=== PATIENT | female | born 1985 | race Caucasian/White ===

== ENCOUNTER 2025-04-02 05:29 | Emergency (ER) | payer MEDICAID, SELFPAY ==
--- OUTSIDE RECORDS SUMMARY | 2025-04-02 05:41 | XMS_ITS | Patient Health Record ---
Author Organization [facility] Address [address] [place] [address] Care Team Providers Care Test Hole Driller Name Role Phone JIM BRISENO Primary Care Provider Allergies Allergen (clinical drug ingredient) Drug/Non Drug Allergy documented on EMR Reaction Allergy Type Onset Date Status aripiprazole Abilify nausea and vomiting Drug Allergy Active lurasidone Latuda nausea and vomiting Drug Allergy Active Reason For Referral No Information Medications Medication SIG (Take, Route, Fr equency, Duration) Notes Start Date End Date Status Xanax 1 MG 1 tablet as needed O rally TID; Duration: 30 days 12/30/2018 Active Protonix 40 MG 1 tablet Orally Once a day; Duration: 30 day(s) 07/21/2018 Active Vraylar 1.5 MG 1 capsule Orally Onc e a day; Duration: 30 days 02/08/2019 Active CeleXA 20 MG 1 tablet Orally Once a day; Duration: 30 days 12/30/2018 Active Prazosin HCl 2 MG 1 capsule at bedtime Orally Once a day; Duration: 30 day(s) 08/08/2019 Active SEROquel 200 MG 1 tablet Orally Once a dayHS; Duration: 30 days 10/16/2017 Active risperiDONE 1 MG 1 tablet in the am, 2 tabs at bedtime Orally as directed; Duration: 30 days 07/21/2018 Active Prazosin HCl 2 MG 1 capsule at bedtime Orally Once a day- for nightmares; Duration: 30 days 10/16/2017 Active Adderall 20 MG 2 tabs po qam, 1 tab po qnoon, 1 tab po q 1500 Orally as directed 10/16/2017 Active Prazosin HCl 1 MG 1 capsule at bedtime Orally Once a day; Duration: 30 day(s) 08/08/2019 Active Social History Tobacco Use: Social History Observation Description Date Details (start date - stop date) Never Smoker NA - NA Tobacco Use/Smoking Question Answer Notes Are you a never smoker Additional Findings: Tobacco User Chews fine cut tobacco Alcohol Screen (Audit-C) Question Answer Notes Did you have a drink containing alcohol in the p ast year? No Points 0 Interpretation Negative Tobacco use other than smoking: Question Answer Notes Are you an other tobacco user? No Problems Problem Type SNOMED Code ICD Code Onset Dates Problem Status W/U Status Risk Notes Problem Posttraumatic stress disorder (01092914) Post-traumatic stress disorder, chronic (F43.12) Active confirmed Problem Bipolar disorder, unspecified (F31.9) Active confirmed Plan Of Treatment No Information Insurance Providers Payer Name Payer Address Payer Phone Subscriber Number Group Number Insured Name Patient Relationship to Insured Coverage Start Date Coverage End Date [place] [address] [id number] JOHN CARRASCO Self - patient is the insured Medical (General) History Medical History History ICD Code BIPOLAR SCHIZPHRENIA PTSD ANXIETY Surgical History Surgery Date(Month/Year) X2 C-SECTIONS Hospitalization History Reason Date(Month/Year) MENTAL
--- OUTSIDE RECORDS SUMMARY | 2025-04-02 05:41 | XMS_ITS | Encounter Summary ---
Author Organization [facility] Address [address] [place] [address] Care Team Providers Care Subassemblies Wirer Name Role Phone Kirsty Ricci PA-C Primary Care Provider [phone] Reason for Visit * Reason Onset Date Comments Med Refill 11/19/2023 Encounter Details Date Type Department Care Team (Late st Contact Info) Description 11/19/2023 Refill [facility] [place] - Primary Care [address] [place] [id number] Kirsty Ricci PA-C [address] [place] [address]. [place] [address] Anemia, unspecified type Social History Tobacco Use Types Packs/Day Years Used Date Smoking Tobacco: Never Smokeless Tobacco: Current Chew Alcohol Use Standard Drinks/Week Comments No 0 (1 standard drink = 0.6 oz pur e alcohol) AUDIT-C Answer Date Recorded Frequency of Alcohol Consumption Never 11/12/2019 Average Number of Drinks Not on file 020 Frequency of Binge Drinking Not on file 10/23 PHQ-2 Answer Date Recorded PHQ-2 Score 0 08/25/2023 Comments Unknown Sex and Gender Information Value Date Recorded Sex Assigned at Not on file Legal Sex Female 7:09 PM CDT Gender Identity Not on file Sexual Orientation Not on file documented as of this encounter Plan of Treatment Not on file documented as of this encounter Goals Goal Patient Goal Type Associated Problems Recent Progress Patient-Stated? Author Learn to Manage Calories Care Plan Diet Management On track( 024 11:21 AM CDT) Danitza Sanchez RN Note: Images from the original note were not included. 5 Steps for Eating Healthier Changing the way you eat can improve your health. It can lower your cholesterol and blood pressure, and help you stay at a healthy weight. Your diet doesn t have to be bland and boring to be healthy. Just watch your calories and follow these steps: Step 1. Eat fewer unhealthy fats Choose more fish and lean meats instead of fatty cuts of meat. Skip butter and lard, and use less margarine. Replace these with healthier fats, such as olive, canola, or avocado oils. Pass on foods that have palm, coconut, or partially hydrogenated oils. Eat fewer high-fat dairy foods like cheese, ice cream, and whole milk. Get a heart-healthy cookbook and try some new recipes. Step 2. Go light on salt Keep the saltshaker off the table. Limit high-salt ingredients, such as soy sauce, bouillon, and garlic salt. Instead of adding salt when cooking, season your food with herbs, spices, and other flavorings. Try lemon, garlic, onion, vinegar, or salt-free herb seasonings. Limit convenience foods, such as boxed or canned foods and restaurant food. Read food labels and choose lower-sodium options. Buy fresh, frozen, or canned vegetables that don't have added salt. Step 3. Limit sugar Pause before you add sugars to pancakes, cereal, coffee, or tea. This includes white and brown table sugar, syrup, honey, and molasses. Cut your usual amount by half. Swap out sugar-filled soda and other drinks. Buy sugar-free or low-calorie beverages. Remember, water is always the best choice. Try adding lemon juice to water for extra flavor. Read labels and choose foods with less added sugar. Keep in mind that dairy foods and foods with fruit will have some natural sugar. Cut the sugar in recipes by 1/3 to 1/2. Boost the flavor with extracts like almond, vanilla, or orange. Or add spices such as cinnamon or nutmeg. Step 4. Eat more fiber Eat fresh fruits and vegetables every day. Boost your diet with whole grains. Go for oats, whole-grain rice, and bran. Add beans and lentils to your meals. Drink more water to match your fiber increase to help prevent constipation. Step 5. Pay attention to serving sizes Remember that a serving size is a standard measurement. It will let you track the amount of fat, calories, and other nutrients in the food you eat. Read the Nutrition Facts label on packaged foods to learn their serving sizes. Use serving sizes to assess how much food you put on your plate. Pay attention to your portions. How many servings are you eating? Keep in mind that your needs may change if you r e more active or less active, or if you have other factors that change your calorie needs. Use your hand to help you measure serving sizes. For example: 1 teaspoon: This is about the size of the first joint of your thumb. 1 tablespoon: This is about the size of the first 2 joints of your thumb. 1 ounce: This is about what you can fit in your cupped hand. 2 to 3 ounces: This is about the size of the palm of your hand. cup: This is also about what you can fit in your cupped hand. 1 cup: This is about the size of your fist. [employer] last reviewed this educational content on 07/24/202219997010-3080 The [employer]. All rights reserved. This information is not intended as a substitute for professional medical care. Always follow your healthcare professional's instructions. Exercise at Least 20 Minutes per Day Care Plan Patient is Inactive On track( 024 11:33 AM CDT) Danitza Sanchez RN Note: Images from the original note were not included. Patient reports that she has low back and hip pain. Work to find ways to exercise that minimize pain such as seated exercises, swimming, etc. Video [employer] Keeping Your Back Healthy Back pain is one of the most common health problems today. In fact, most people experience back pain at some point in their lives. Normal aging and some physically demanding occupations often cause discs to wear out. Bad posture and poor movement patterns can speed up the process. To watch the video: Scan the QR code Using your mobile device, scan the following code: OR Go to the website: www.[employer] Enter the prescription code: TONNYX The comment.com. All rights reserved. This information is not intended as a substitute for professional medical care. Always follow your healthcare professional's instructions. Consistently take Medications as Prescribed Care Plan Medication Adherence On track( 024 11:19 AM CDT) Danitza Sanchez RN documented as of this encounter Visit Diagnoses Diagnosis Anemia, unspecified type documented in this encounter Additional Health Concerns Health Status Noted Date Alive and well 05/05/2023 Active Problems Noted Date Diagnosed Date Diet Management 11/18/2023 Patient is Inactive 11/18/2023 Medication Adherence 11/18/2023 Infection Onset Date Last Indicated Resolved Time COVID-19 (rule out) 02/07/2025 02/07/2025 02/08/20 25 10:09 PM CDT COVID-19 (rule out) 02/17/2025 02/17/2025 02/18/20 25 1:32 PM CDT Assessment Noted Time A fall risk assessment has been complete d for the patient 11/18/2023 12:39 PM CDT documented as of this encounter Care Teams Subassemblies Wirer Relationship Specialty Start Date End Date Kirsty Ricci PA-C [address] [place] [id number] PCP - General Physician Technical Associate 05/05/23 documented as of this encounter
--- OUTSIDE RECORDS SUMMARY | 2025-04-02 05:41 | XMS_ITS | Encounter Summary ---
Author Organization [facility] Address [address] [place] [address] Care Team Providers Care Master Glazier Name Role Phone Kirsty Ricci PA-C Primary Care Provider [phone] Reason for Visit * Reason Comments Med Refill Encounter Details Date Type Department Care Team (Late st Contact Info) Description 03/16/2024 Refill [facility] - Primary Care [address] [place] [address] Kirsty Ricci PA-C [address] [facility] [place] [address] UTI symptoms Social History Tobacco Use Types Packs/Day Years Used Date Smoking Tobacco: Never Smokeless Tobacco: Former Chew Alcohol Use Standard Drinks/Week Comments No 0 (1 standard drink = 0.6 oz pur e alcohol) [facility] Utilities Answer Date Recorded In the past 12 months has Medabil, oil, or water Slack threatened to shut off services in your home? No 01/07/2024 Humiliation, Afraid, Rape, and Kick questionnair e Answer Date Recorded Within the last year, have y ou been afraid of your partner or ex-partner? No 01/07/2024 Within the last year, have y ou been humiliated or emotionally abused in other ways by your partner or ex-partner? No Within the last year, have y ou been kicked, hit, slapped, or otherwise physically hurt by your partner or ex-partner? No 01/07/2024 Within the last year, have y ou been raped or forced to have any kind of sexual activity by your partner or ex-partner? No 01/07/2024 Social Connection and Isolation Panel [NHANES] A nswer Date Recorded In a typical week, how many times do you talk on the phone with family, friends, or neighbors? Twice a week 01/07/2024 How often do you get together with friends or re latives? Once a week 01/07/2024 How often do you attend christian or adventist serv ices? Never 01/07/2024 Do you belong to any clubs o r organizations such as christian groups, unions, fraternal or athletic groups, or school groups? No 01/07/2024 How often do you attend meet ings of the clubs or organizations you belong to? Never 01/07/2024 Are you , , di vorced, , never , or living with a partner? 01/07/2024 AUDIT-C Answer Date Recorded Q1: How often do you have a drink containing alcohol? Never 01/07/2024 Q2: How many drinks containi ng alcohol do you have on a typical day when you are drinking? Patient does not drink Q3: How often do you have si x or more drinks on one occasion? Never 01/07/2024 Overall Financial Resource Strain (CARDIA) Answe r Date Recorded How hard is it for you to pa y for the very basics like food, housing, medical care, and heating? Not hard at all 01/07/2024 PHQ-2 Answer Date Recorded PHQ-2 Score 0 08/25/2023 [facility] - Occupational Stress Questionnaire Answer Date Recorded Do you feel stress - tense, restless, nervous, or anxious, or unable to sleep at night because your mind is troubled all the time - these days? To some extent 01/07/2024 Exercise Vital Sign Answer Date Recorde d On average, how many days pe r week do you engage in moderate to strenuous exercise (like a brisk walk)? 7 days 01/07/2024 On average, how many minutes do you engage in exercise at this level? 20 min 01/07/2024 Hunger Vital Sign Answer Date Recorded Within the past 12 months, y ou worried that your food would run out before you got the money to buy more. Never true 01/07/20 24 Within the past 12 months, t he food you bought just didn't last and you didn't have money to get more. Never true 01/07/2024 PRAPARE - Transportation Answer Date Re corded In the past 12 months, has l ack of transportation kept you from medical appointments or from getting medications? No 12/22 In the past 12 months, has l ack of transportation kept you from meetings, work, or from getting things needed for daily living? No 01/07/2024 Housing Stability Vital Sign Answer Alfredo e Recorded In the last 12 months, was t here a time when you were not able to pay the mortgage or rent on time? No 01/07/2024 In the last 12 months, how many places have you lived? 1 01/07/2024 In the last 12 months, was t here a time when you did not have a steady place to sleep or slept in a custodial (including now)? No 01/07/2024 Comments Unknown Sex and Gender Information Value Date Recorded Sex Assigned at Not on file Legal Sex Female 7:09 PM CDT Gender Identity Not on file Sexual Orientation Not on file documented as of this encounter Miscellaneous Notes * Telephone Encounter - Amparo Salazar - 03/22/2024 10:52 AM CDT Patient does not need. Not having any uti symptoms. * Telephone Encounter - Amparo Salazar - 03/16/2024 3:57 PM CDT Called 1x. Mailbox full. documented in this encounter Plan of Treatment Not on file documented as of this encounter Goals Goal Patient Goal Type Associated Problems Recent Progress Patient-Stated? Author Learn to Manage Calories Care Plan Diet Management On track( 024 11:21 AM CDT) No Danitza Larkin, RN Note: Images from the original note [...] is about the size of your fist. LookIt last reviewed this educational content on 07/24/202219997456-2481 The [employer]. All rights reserved. This information is not [...] following code: OR Go to the website: www.Albumatic Enter the prescription code: RKX [employer]. All rights reserved. This information is not intended as a substitute for professional medical care. Always follow your healthcare professional's instructions. Consistently take Medications as Prescribed Care Plan Medication Adherence On track( 024 11:19 AM CDT) No Danitza Larkin RN documented as of this encounter Visit Diagnoses Diagnosis UTI symptoms documented in this encounter Additional Health Concerns Health Status Noted Date Alive and well 01/07/2024 Active Problems Noted Date Diagnosed Date Diet Management 11/18/2023 Patient is Inactive 11/18/2023 Medication Adherence 11/18/2023 Infection Onset Date Last Indicated Resolved Time COVID-19 (rule out) 02/07/2025 02/07/2025 02/08/20 25 10:09 PM CDT COVID-19 (rule out) 02/17/2025 02/17/2025 02/18/20 25 1:32 PM CDT Assessment Noted Time A fall risk assessment has been complete d for the patient 01/07/2024 10:29 AM CDT documented as of this encounter Care Teams Master Glazier Relationship Specialty Start Date End Date Kirsty Ricci, PARowanC [address] [place] [phone] PCP - General Physician Systems Admin 05/05/23 documented as of this encounter
--- OUTSIDE RECORDS SUMMARY | 2025-04-02 05:41 | XMS_ITS | Encounter Summary ---
Author Organization [facility] Address [address] [place] [address] Care Team Providers Care Seamstress Fitter Name Role Phone Kirsty Ricci PA-C Primary Care Provider [phone] Encounter Details Date Type Department Care Team (Late st Contact Info) Description 05/01/2015 Orders Only [facility] Radiology [address] [place] [address] System, Provider Not In, [address] [place] [address] Social History Tobacco Use Types Packs/Day Years Used Date Smoking Tobacco: Never Assessed Comments Unknown Sex and Gender Information Value Date Recorded Sex Assigned at Not on file Legal Sex Female 7:09 PM CDT Gender Identity Not on file Sexual Orientation Not on file documented as of this encounter Plan of Treatment Not on file documented as of this encounter Procedures Procedure Name Priority Date/Time Associated Diagnosis Comments OUTSIDE IMAGES 05/01/2015 1:02 PM CDT documented in this encounter Results * Outside Images (05/01/2015 1:02 PM CDT) Anatomical Region Laterality Modality N/A Radiographic Ladonna ging 05/01/2015 1:02 PM CDT Narrative 05/01/2015 1:02 PM CDT Historic images from [facility] exist and can be viewed by using the hyperlink to access [facility] pacs: EP LT ANKLE - 3 VIEWS/AKLE PAIN Procedure Note System, Provider Not In - 10/15/2019 Historic images from [facility] exist and can be viewed byusing the hyperlink to access [facility] pacs: EP LT ANKLE - 3 VIEWS/AKLEPAIN us Provider Not In System MD [facility] Final Result documented in this encounter Visit Diagnoses Not on filedocumented in this encounter Additional Health Concerns Infection Onset Date Last Indicated Resolved Time COVID-19 (rule out) 11/26/2020 11/26/2020 11/27/19 21 11:49 AM CDT COVID-19 (rule out) 11/26/2020 11/26/2020 11/27/19 21 1:45 PM CDT COVID-19 (rule out) 01/02/2021 01/02/2021 01/03/20 21 7:16 PM CDT MRSA (Other) 01/02/2021 01/02/2021 07/01/2021 4:00 AM VENDING TECHNICIAN COVID-19 (rule out) 02/05/2022 02/05/2022 02/06/20 22 5:36 PM CDT COVID-19/Influenza (Rule Out) 07/17/2022 07/17/2022 07/17/2022 9:39 AM VENDING TECHNICIAN COVID-19 (confirmed) 07/17/2022 07/17/2022 022 4:00 AM VENDING TECHNICIAN COVID-19 (rule out) 02/07/2025 02/07/2025 02/08/20 25 10:09 PM CDT COVID-19 (rule out) 02/17/2025 02/17/2025 02/18/20 25 1:32 PM CDT documented as of this encounter Care Teams Seamstress Fitter Relationship Specialty Start Date End Date Kirsty Ricci PA-C [address] [place] [id number] PCP - General Physician Ballistic Expert 05/05/23 documented as of this encounter
--- OUTSIDE RECORDS SUMMARY | 2025-04-02 05:41 | XMS_ITS | Encounter Summary ---
Author Organization [facility] Address [address] [place] [address] Care Team Providers Care Cable Tender Name Role Phone Kirsty Ricci PA-C Primary Care Provider [phone] Reason for Visit * Reason Onset Date Comments Med Refill 12/07/2023 Encounter Details Date Type Department Care Team (Late st Contact Info) Description 12/07/2023 Refill [facility] [place] - Primary Care [address] [place] [address] Kirsty Ricci PA-C [address] [place] [address]. [place] [address] Social History Tobacco Use Types Packs/Day Years [...] is about the size of your fist. Zo[employer] last reviewed this educational content on 07/24/202219992639-6675 The [employer]. All rights reserved. This information is not [...] following code: OR Go to the website: www.Dmailer Enter the prescription code: RKX [employer]. All rights reserved. This information is not intended as a substitute for professional medical care. Always follow your healthcare professional's instructions. Consistently take Medications as Prescribed Care Plan Medication Adherence On track( 024 11:19 AM CDT) Danitza Sanchez RN documented as of this encounter Visit Diagnoses Not on filedocumented in this encounter Additional Health Concerns Health [...] documented as of this encounter Care Teams Cable Tender Relationship Specialty Start Date End Date Kirsty Ricci PA-C [address] [place] [phone] PCP - General Physician Titrator 05/05/23 documented as of this encounter
--- OUTSIDE RECORDS SUMMARY | 2025-04-02 05:41 | XMS_ITS | Clinical Summary ---
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 CDT [facility] Blood Venous blood / Unknown 02/17/2025 12:59 PM CDT 02/17/2025 1:09 PM CDT us Jose Soliman LAB BLOOD ORDERABLES Final Resul t Performing Organization Address [facility] Co de Phone Number [address] [address] * hCG, serum, qualitative STAT (02/17/2025 12:59 PM CDT) Only the most recent of2 resultswithin the time period is included. Beta HCG Qualitative Negative NA 02/17/2025 1:32 PM CDT [facility] Comment:Reference Range: Neg ative Blood Venous blood / Unknown 02/17/2025 12:59 PM CDT 02/17/2025 1:09 PM CDT Jose Funez Soliman LAB BLOOD ORDERABLES Final Resul t Performing Organization Address [facility] Co de Phone Number [address] [address] * TSH, 3rd generation STAT (02/17/2025 12:59 PM CDT) Only the most recent of2 resultswithin the time period is included. TSH, 3rd Gen 3.030 0.270 - 4.670 u[IU]/mL 02/17/2025 1:44 PM CDT [facility] Blood Venous blood / Unknown 02/17/2025 12:59 PM CDT 02/17/2025 1:09 PM CDT us Jose Soliman DO LAB BLOOD ORDERABLES Final Resul t Performing Organization Address [facility] Co de Phone Number [address] [address] * Creatine kinase (CK) STAT (02/17/2025 12:59 PM CDT) Only the most recent of2 resultswithin the time period is included. Creatine Kinase 66 0 - 132 U/L 02/17/2025 1:38 PM CDT [facility] Blood Venous blood / Unknown 02/17/2025 12:59 PM CDT 02/17/2025 1:09 PM CDT us Jose Soliman DO LAB BLOOD ORDERABLES Final Resul t Performing Organization Address [facility] Co de Phone Number [address] [address] * Alcohol STAT (02/17/2025 12:59 PM CDT) Only the most recent of2 resultswithin the time period is included. Alcohol <0.010 0.000 - 0.009 g/dL 02/17/2025 1:44 PM CDT [facility] Blood Venous blood / Unknown 02/17/2025 12:59 PM CDT 02/17/2025 1:09 PM CDT us Jose Soliman DO LAB BLOOD ORDERABLES Final Resul t Performing Organization Address [facility] Co de Phone Number [address] [address] * Acetaminophen level STAT (02/17/2025 12:59 PM CDT) Only the most recent of2 resultswithin the time period is included. Acetaminophen <5.0 ug/mL 02/17/2025 1:37 PM CDT [facility] Comment: THERAPEUTIC RANGE: <150 UG/ML 4 HOURS AFTER INGESTION < 50 UG/ML 12 HOURS AFTER INGESTION TOXIC: >150 UG/ML 4 HOURS AFTER INGESTION Blood Venous blood / Unknown 02/17/2025 12:59 PM CDT 02/17/2025 1:09 PM CDT Jose Soliman LAB BLOOD ORDERABLES Final Resul t Performing Organization Address [facility] de Phone Number [address] [address] * (ABNORMAL) Salicylate level STAT (02/17/2025 12:59 PM CDT) Only the most recent of2 resultswithin the time period is included. Salicylate <5.0(L) 150.0 - 300.0 mg/L 02/17/2025 1:44 PM CDT [facility] Blood Venous blood / Unknown 02/17/2025 12:59 PM CDT 02/17/2025 1:09 PM CDT Jose Soliman DO LAB BLOOD ORDERABLES Final Resul t Performing Organization Address [facility] de Phone Number [address] [address] * Comprehensive metabolic panel STAT (02/17/2025 12:59 PM CDT) Only the most recent of2 resultswithin the time period is included. Sodium 140 131 - 145 meq/L 02/17/2025 1:38 PM CDT [facility] Potassium 4.3 3.3 - 5.0 meq/L 02/17/2025 1:38 PM CDT [facility] Chloride 108 96 - 111 meq/L 02/17/2025 1:38 PM CDT [facility] CO2 20 20 - 31 meq/L 02/17/2025 1:38 PM CDT [facility] BUN 11 5 - 23 mg/dL 02/17/2025 1:38 PM CDT [facility] Creatinine 0.68 0.60 - 1.40 mg/dL 02/17/2025 1:38 PM CDT [facility] Glucose 91 72 - 113 mg/dL 02/17/2025 1:38 PM CDT [facility] Calcium 8.7 8.2 - 10.2 mg/dL 02/17/2025 1:38 PM CDT [facility] CALCIUM, CORRECTED 8.9 8.2 - 10.2 mg/dL 02/17/2025 1:38 PM CDT [facility] Comment:Calcium corrected fo r Albumin of less than 4.0. Bilirubin Total 0.3 0.1 - 0.9 mg/dL 02/17/2025 1:38 PM CDT [facility] Alkaline Phosphatase 109 38 - 137 U/L 02/17/2025 1:38 PM CDT [facility] ALT (SGPT) 12 0 - 31 U/L 02/17/2025 1:38 PM CDT [facility] AST (SGOT) 16 6 - 32 U/L 02/17/2025 1:38 PM CDT [facility] Total Protein 6.8 6.1 - 8.2 g/dL 02/17/2025 1:38 PM CDT [facility] Albumin 3.8 3.7 - 5.1 g/dL 02/17/2025 1:38 PM CDT [facility] Anion Gap 12 8 - 16 NA 02/17/2025 1:38 PM CDT [facility] Alb/Glob Ratio Calc 1.3 1.1 - 2.2 g/dL 02/17/2025 1:38 PM CDT [facility] BUN/Creatinine Ratio 16 mg/dL 02/17/2025 1:38 PM CDT [facility] Blood Venous blood / Unknown 02/17/2025 12:59 PM CDT 02/17/2025 1:09 PM CDT us Jose Soliman DO LAB BLOOD ORDERABLES Final Resul t Tenzin [facility] [address] [facility] [facility] [place] [address] * X-ray Bedside Chest 1 View (02/08/2025 2:19 PM CDT) Anatomical Region Laterality Modality Chest N/A Computed Radiogr aphy Narrative 02/08/2025 2:23 PM CDT EXAM: CHEST RADIOGRAPH (1 VIEW) TECHNIQUE: Frontal Chest Radiograph. HISTORY: Chest pain COMPARISON: July 17, 2022 FINDINGS: Lines, Tubes, Devices: None Lungs and Pleura: No focal consolidation. No pleural effusion. No pneumothorax. No pulmonary edema. Cardiomediastinum: Normal cardiomediastinal silhouette. No aortic calcifications. Bones/Soft Tissues: No acute osseous abnormality. No soft tissue abnormality. Upper Abdomen: Within normal limits. IMPRESSION: No acute radiographic abnormality. Procedure Note Kendrick Cooper MD - 02/08/2025 EXAM: CHEST RADIOGRAPH (1 VIEW) TECHNIQUE: Frontal Chest Radiograph. HISTORY: Chest pain COMPARISON: July 17, 2022 FINDINGS: Lines, Tubes, Devices: None Lungs and Pleura: No focal consolidation. No pleural effusion. Nopneumothorax. No pulmonary edema. Cardiomediastinum: Normal cardiomediastinal silhouette. No aorticcalcifications. Bones/Soft Tissues: No acute osseous abnormality. No soft tissueabnormality. Upper Abdomen: Within normal limits. IMPRESSION: No acute radiographic abnormality. Holland Barton MD [facility] DI[facility]NOSTIC IMAGING ORD ERABLES Final Result * ThinPrep Diag w/HVP>=30yr (11/18/2023 10:39 AM CDT) ThinPrep Diag w/HVP>=30yr SEE BELOW NA 11/30/2023 2:55 PM CDT [facility] Comment: ThinPrep w/HPV [id number] NOTE Test Result Flag Unit RefValue ThinPrep w/HPV [id number] Interpretation Cervical/Endocervical (ThinPrep): Satisfactory for Evaluation Negative for Intraepithelial Lesion or Malignancy High Risk HPV testing results are NEGATIVE. See specific genotype results below. HPV with Genotyping, PCR, ThinPrep: HPV High Risk Type 16, PCR: NEGATIVE HPV High Risk Type 18, PCR: NEGATIVE HPV other High Risk types, PCR: NEGATIVE Other High Risk HPV types include: 31, 33, 35, 39, 45, 51, 52, 56, 58, 59, 66, and 68. Report electronically signed by JOCELYN Palomares (ASCP) I verify that I have examined all relevant slides/materials for the specimen(s) and rendered or confirmed the diagnosis. Gross Description Received specimen in a ThinPrep vial. Pap Test Source Cervical/Endocervical Clinical History na Menstrual Status (LMP, PM, 11.06.2023 ) Hormone Therapy/Contraceptives None/Not known Test Performed by: [address] [address] Pipe Organ Mechanic Apprentice: Yuri Domínguez M.D. Ph.D.; CLIA# [id number] Cervix/Vaginal 11/18/2023 10 :39 AM CDT 11/19/2023 11:24 AM CDT Narrative [facility] - 11/30/2023 2:55 PM CDT Pap Smear Source->Cervical/Endocervical Last Menstral Period (LMP) Date->11/06/23 Hormone Therapy/Contraceptives->None Pertinent Clinical History->NA us Kirsty Ricci PA-C LAB PATHOLOGY/CYTOLOGY ORDERA BLES Final Result [facility] [address] [place] [address] from Last 3 Months or Most Recently Relevant to Health Maintenance Additional Health Concerns Active Problems Noted Date Diagnosed Date Diet Management 11/18/2023 Patient is Inactive 11/18/2023 Medication Adherence 11/18/2023 Lack of housing 03/28/2025 Insurance [place] [employer] [place] [employer] on file Advance Directives * Code Blue and Intubation (Latest Code Status on File) Date Activated Date Inactivated Comments 01/05/2020 1:56 PM 01/07/2020 12:44 PM Care Teams Industrial Cook Relationship Specialty Start Date End Date Kirsty Ricci PA-C [address] [place] [id number] PCP - General Physician Composite Layup Worker 05/05/23
--- OUTSIDE RECORDS SUMMARY | 2025-04-02 05:41 | XMS_ITS | Encounter Summary ---
Author Organization [facility] Address [address] [place] [address] Care Team Providers Care Beauty Shop Manager Name Role Phone Kirsty Ricci PA-C Primary Care Provider [phone] Encounter Details Date Type Department Care Team (Late st Contact Info) Description 06/13/2015 Orders Only [facility] Radiology [address] [place] [address] System, Provider Not In, [address] [facility] [place] [address] Social History Tobacco Use Types Packs/Day Years [...] Priority Date/Time Associated Diagnosis Comments OUTSIDE IMAGES 06/13/2015 10:44 AM CDT documented in this encounter Results * Outside Images (06/13/2015 10:44 AM CDT) Anatomical Region Laterality Modality N/A Radiographic Ladonna ging 06/13/2015 10:4 4 AM CDT Narrative 06/13/2015 10:44 AM CDT Historic images from [facility] exist and can be viewed by using the hyperlink to access Thumb Friendly pacs: PELVIC US Procedure Note System, Provider Not In - 10/15/2019 Historic images from [facility] exist and can be viewed byusing the hyperlink to access Thumb Friendly pacs: PELVIC US us Provider Not In System MD DAVIS [...] MRSA (Other) 01/02/2021 01/02/2021 07/01/2021 4:00 AM PAYROLL ACCOUNTING CLERK COVID-19 (rule out) 02/05/2022 02/05/2022 02/06/20 22 5:36 PM CDT COVID-19/Influenza (Rule Out) 07/17/2022 07/17/2022 07/17/2022 9:39 AM PAYROLL ACCOUNTING CLERK COVID-19 (confirmed) 07/17/2022 07/17/2022 022 4:00 AM PAYROLL ACCOUNTING CLERK COVID-19 (rule out) 02/07/2025 02/07/2025 02/08/20 25 10:09 PM CDT COVID-19 (rule out) 02/17/2025 02/17/2025 02/18/20 25 1:32 PM CDT documented as of this encounter Care Teams Beauty Shop Manager Relationship Specialty Start Date End Date Kirsty iRcci PA-C [address] [place] [id number] PCP - General Physician Electric Truck Operator 05/05/23 documented as of this encounter
--- OUTSIDE RECORDS SUMMARY | 2025-04-02 05:41 | XMS_ITS | Encounter Summary ---
Author Organization [facility] Address [address] [place] [address] Care Team Providers Care Glass Smoother Name Role Phone Kirsty Ricci PA-C Primary Care Provider [phone] Reason for Visit * Reason Comments Med Refill Encounter Details Date Type Department Care Team (Late st Contact Info) Description 08/07/2024 Refill [facility] Care [address] [place], [place] [id number] Gina Felton, [facility] [address] [place] [address] Burning with urination Social History Tobacco Use Types Packs/Day Years Used Date Smoking Tobacco: Never Smokeless Tobacco: Former Chew Alcohol Use Standard Drinks/Week Comments No 0 (1 standard drink = 0.6 oz pur e alcohol) [facility] Utilities Answer Date Recorded In the past 12 months has [employer], gas, oil, or water [employer] threatened to shut off services in your [...] week 01/07/2024 How often do you attend mormon or religion serv ices? Never 01/07/2024 Do you belong to any clubs o r organizations such as mormon groups, unions, fraternal or athletic groups, or [...] Answer Date Recorded PHQ-2 Score 0 08/25/2023 [facility] Occupat ional Health - Occupational Stress [...] place to sleep or slept in a nursing home (including now)? No 01/07/2024 Comments Unknown Sex [...] is about the size of your fist. [employer] [facility] reviewed this educational content on 07/24/2022 [employer]. All rights reserved. This information is not intended as a substitute for professional medical care. Always follow your healthcare professional's instructions. Exercise at Least 20 Minutes per Day Care Plan Patient is Inactive On track( 11:33 AM CDT) Danitza Sanchez RN Note: [...] following code: OR Go to the website: www.[employer] Enter the prescription code: RKX [employer]. All rights reserved. This information is not intended as a substitute for professional medical care. Always follow your healthcare professional's instructions. Consistently take Medications as Prescribed Care Plan Medication Adherence On track( 11:19 AM CDT) Danitza Sanchez RN documented as of this encounter Visit Diagnoses Diagnosis Burning with urination Dysuria documented in this encounter Additional Health Concerns Health Status Noted Date Alive and well 06/16/2024 Active Problems Noted Date Diagnosed Date Diet Management 11/18/2023 Patient is Inactive 11/18/2023 Medication Adherence 11/18/2023 Infection Onset Date Last Indicated Resolved Time COVID-19 (rule out) 02/07/2025 02/07/202517/20 25 10:09 PM CDT COVID-19 (rule out) 02/17/2025 02/17/2025 02/18/20 25 1:32 PM CDT Assessment Noted Time A fall risk assessment has been complete d for the patient 06/16/2024 1:14 PM CDT documented as of this encounter Care Teams Glass Smoother Relationship Specialty Start Date End Date Kirsty Ricci PA-C [address] [place] [id number] PCP - General Physician Campaign Associate 05/05/23 documented as of this encounter
--- OUTSIDE RECORDS SUMMARY | 2025-04-02 05:41 | XMS_ITS | Encounter Summary ---
Author Organization [facility] Address [address] [place] [address] Care Team Providers Care Hat Sizer Name Role Phone Kirsty Ricci PA-C Primary Care Provider [phone] Encounter Details Date Type Department Care Team (Late st Contact Info) Description 07/06/2014 Orders Only [facility] Rad[facility] [address] [facility] [place] [address] System, Provider Not In, [address] [facility] [place] [address] Social History Tobacco Use Types Packs/Day Years [...] Priority Date/Time Associated Diagnosis Comments OUTSIDE IMAGES 07/06/2014 9:41 AM TUTORIAL LABORATORY SUPERVISOR documented in this encounter Results * Outside Images (07/06/2014 9:41 AM TUTORIAL LABORATORY SUPERVISOR) Anatomical Region Laterality Modality N/A Radiographic Ladonna ging 07/06/2014 9:41 AM TUTORIAL LABORATORY SUPERVISOR Narrative 07/06/2014 9:41 AM TUTORIAL LABORATORY SUPERVISOR Historic images from [facility] exist and can be viewed by using the hyperlink to access Quid pacs: RUQ US Procedure Note System, Provider Not In - 10/15/2019 Historic images from [facility] exist and can be viewed byusing the hyperlink to access Quid pacs: RUQ US us Provider Not In System MD [...] MRSA (Other) 01/02/2021 01/02/2021 07/01/2021 4:00 AM TUTORIAL LABORATORY SUPERVISOR COVID-19 (rule out) 02/05/2022 02/05/2022 02/06/20 22 5:36 PM CDT COVID-19/Influenza (Rule Out) 07/17/2022 07/17/2022 07/17/2022 9:39 AM TUTORIAL LABORATORY SUPERVISOR COVID-19 (confirmed) 07/17/2022 07/17/2022 022 4:00 AM TUTORIAL LABORATORY SUPERVISOR COVID-19 (rule out) 02/07/2025 02/07/2025 02/08/20 25 10:09 PM CDT COVID-19 (rule out) 02/17/2025 02/17/2025 02/18/20 25 1:32 PM CDT documented as of this encounter Care Teams Hat Sizer Relationship Specialty Start Date End Date Kirsty Ricci PA-C [address] [place] [id number] PCP - General Physician Cafe Server 05/05/23 documented as of this encounter
--- OUTSIDE RECORDS SUMMARY | 2025-04-02 05:41 | XMS_ITS | Encounter Summary ---
Author Organization [facility] Address [address] [place] [address] Care Team Providers Care Systems Spec Name Role Phone Kirsty Ricci PA-C Primary Care Provider [phone] Reason for Visit * Reason Onset Date Comments Transitions of Care 03/28/2025 Phone call Encounter Details Date Type Department Care Team (Late st Contact Info) Description 03/28/2025 Patient Outreach [address] [address] Danitza Larkin, RN Transitions of Care (Phone call) Social History Tobacco Use Types Packs/Day Years Used Date Smoking Tobacco: Never Smokeless Tobacco: Former Chew Alcohol Use Standard Drinks/Week Comments No 0 (1 standard drink = 0.6 oz pur e alcohol) [facility] Utilities Answer Date Recorded In the past 12 months has [facility] [employer], gas, oil, or water [employer] threatened to shut off services in your [...] week 01/07/2024 How often do you attend nondenominational or buddhism serv ices? Never 01/07/2024 Do you belong to any clubs o r organizations such as nondenominational groups, unions, fraternal or athletic groups, or [...] Answer Date Recorded PHQ-2 Score 0 08/25/2023 [facility] - Occupational Stress [...] place to sleep or slept in a fpc (including now)? No 01/07/2024 Comments Unknown Sex and Gender Information Value Date Recorded Sex Assigned at Not on file Legal Sex Female 7:09 PM CDT Gender Identity Not on file Sexual Orientation Not on file documented as of this encounter Miscellaneous Notes * Professional Security Officer Note - Danitza Larkin RN - 03/28/2025 2:58 PM CDT Silvana Espino to [facility] 03/02/2025 admitted for Schizophrenia, unspecified Discharge date shows 03/24/2025 per state report.......................[facility], 03/27/2025 8:53 AM Notified of the above and called [phone] for FUNMILAYO follow up. Patient answered and two patient identifiers obtained. Introduced self and explained the Health Home program. [facility] FUNMILAYO/TCM Note Name: Silvana Espino : y.o.female Encounter Date: 03/28/2025 Professional Security Officer contacted patient for follow-up FUNMILAYO call. HIPAA verified. Contacts Contact Date/Time Type Contact Phone/Fax 03/28/2025 02:41 PM CDT Phone (Outgoing) Silvana Espino (Self) [phone] (M) Call Answered Contact Date and Time of Contact: 03/28/2025 2:41 PM Is this encounter related to a hospital discharge follow-up?: Yes Hospital Discharge Date: 03/24/25 Is this encounter related to an ER discharge follow-up?: No Discharge From: Inpatient Behavioral Health Discharge To: Home Background: Transitions of Care Phone call attempt: Second attempt Call made within 2 business days post discharge?: Yes Do you understand your discharge instructions?: Yes Do you feel your symptoms or conditions are being managed well?: Yes Was PCP followup appointment scheduled? No Patient does not wish to schedule an appointment at thistime. Do you have transportation to your appointment?: Yes Was patient seen/screened by inpatient palliative care? No Did you require any post discharge services such as home health, nursing, therapy, DME, etc.?: No Have they contacted you or did you start their services?: Were referrals made at discharge? No Were you given new prescriptions at discharge? Yes Were new prescriptions filled? Yes Do you have questions about your new medications? No Does the patient want to participate in the program?: Yes Yes Sent a letter?: Yes Patient instructions sent?: Yes Does patient use MyChart?: Yes Summary and follow up plan: Patient reports that she has been having some mental health issues thathave had her in and out of the hospital frequently this past month. Patient reports that she is homeless and is currently in a womens fpc in [place], [place]. She reports that her medications have changed and she was given new prescriptions for Strattera, Wellbutrin SR, Remeron, and is taking an Invega injection monthly. Patient requests that her PCP refill her zyrtec and mobic and [facility] [place]. Patient is requesting assistance to find housing in the [facility]. Will research and see what is available and enlist the assistance of [facility]. Patient reports that she is doing okay right now. Patient does not wish to make a follow up appointment with PCP at this time. Contact information given, educated on same day sick appointments, urgent care and resources. Encouraged to call with any needs or concerns. Patient verbalized understanding. Collaboration and Referrals: None Patient instructions: Care plan has been developed with patient, family, and/or caregiver. Preferences, potential barriers, and patient functionality have been reviewed and goals adjusted accordingly. Self-management planhas been discussed. Patient, family, and/or caregiver questions and concerns addressed to their sati sfaction. A copy of this care plan has been provided in writing to the patient. The care plan will be reviewed annually and as needed. Danitza Larkin RN [facility], 03/28/2025 3:06 PM documented in this encounter Plan of Treatment [...] is about the size of your fist. [employer] last reviewed this educational content on 07/24/202219998575-6270 The [employer], [employer]. All rights reserved. This information is not intended as a substitute for professional medical care. Always follow your healthcare professional's instructions. Exercise at Least 20 Minutes per Day Care Plan Patient is Inactive On track( 11:33 AM CDT) Danitza Sanchez, TONIE Note: Images from the original note were [...] following code: OR Go to the website: www.[employer] Enter the prescription code: RKX [employer]. All rights reserved. This information is not intended as a substitute for professional medical care. Always follow your healthcare professional's instructions. Consistently take Medications as Prescribed Care Plan Medication Adherence On track( 11:19 AM CDT) Danitza Sanchez, RN Assist with finding housing Care Plan Lack of housing On track( 3:19 PM CDT) Danitza Sanchez, RN Note: 03/28/25-Patient reports that she is homeless and currently in a women's fpc out of town and needs to find a place close to [place]. documented as of this encounter Visit Diagnoses Not on filedocumented in this encounter Additional Health Concerns Health Status Noted Date Alive and well 06/16/2024 Active Problems Noted Date Diagnosed Date Diet Management 11/18/2023 Patient is Inactive 11/18/2023 Medication Adherence 11/18/2023 Lack of housing 03/28/2025 Assessment Noted Time A fall risk assessment has been complete d for the patient 06/16/2024 1:14 PM CDT documented as of this encounter Care Teams Systems Spec Relationship Specialty Start Date End Date Kirsty Ricci PA-C [address] [place] [id number] PCP - General Physician Vice President Global Advertising Sales 05/05/23 documented as of this encounter
--- OUTSIDE RECORDS SUMMARY | 2025-04-02 05:41 | XMS_ITS | Encounter Summary ---
Author Organization [facility] Address [address] [place] [address] Care Team Providers Care Ed Physicians Name Role Phone Kirsty Ricci PA-C Primary Care Provider [phone] Reason for Visit * Reason Comments Med Refill Encounter Details Date Type Department Care Team (Late st Contact Info) Description 05/27/2024 Refill [facility] - Primary Care [address] [place] [id number] Kirsty Ricci PA-C [address] [facility] [place] [address] Acute cystitis with hematuria Social History Tobacco Use Types Packs/Day Years Used Date Smoking Tobacco: Never Smokeless Tobacco: Former Chew Alcohol Use Standard Drinks/Week Comments No 0 (1 standard drink = 0.6 oz pur e alcohol) [facility] Utilities Answer Date Recorded In the past 12 months has [employer] gas, oil, or water [employer] threatened to shut off services in your [...] week 01/07/2024 How often do you attend muslim or jehovah's witness serv ices? Never 01/07/2024 Do you belong to any clubs o r organizations such as muslim groups, unions, fraternal or athletic groups, or [...] Answer Date Recorded PHQ-2 Score 0 08/25/2023 [facility] Occupat ional Health - Occupational Stress [...] place to sleep or slept in a mcc (including now)? No 01/07/2024 Comments Unknown Sex [...] is about the size of your fist. [employer] [facility] reviewed this educational content on 07/24/202219998074-5744 The [employer]. All rights reserved. This information is not [...] following code: OR Go to the website: www.[employer] Enter the prescription code: RKX [employer]. All rights reserved. This information is not intended as a substitute for professional medical care. Always follow your healthcare professional's instructions. Consistently take Medications as Prescribed Care Plan Medication Adherence On track( 11:19 AM CDT) Danitza Sanchez RN documented as of this encounter Visit Diagnoses Diagnosis Acute cystitis with hematuria documented in this encounter Additional Health Concerns [...] has been complete d for the patient 05/09/2024 2:55 PM CDT documented as of this encounter Care Teams Ed Physicians Relationship Specialty Start Date End Date Kirsty Ricci PA-C [address] [place] [id number] PCP - General Physician Filter Tender 05/05/23 documented as of this encounter
--- OUTSIDE RECORDS SUMMARY | 2025-04-02 05:41 | XMS_ITS ---
Care Plan Created on: April 02, 2025 Silvana Espino : 1985 Sex: Female Author Organization [facility] Address [address] [place] [address] Care Team Providers Care Bag Valver Name Role Phone Kirsty Ricci PA-C Primary Care Provider [phone] Active Problems Problem Noted Date Diagnosed Date [...] 08/25/2023 Assessment & Plan (08/25/2023 10:07 AM GARLAND MACHINE OPERATOR): 30-year-old female with the above diagnoses. Up-to-date on cervical cancer screen, followed by ob/gyn nurse. Labs obtained today. Will call with results Gastroesophageal reflux disease 08/25/2023 Assessment & Plan (08/25/2023 10:08 AM GARLAND MACHINE OPERATOR): Will start on a PPI, discussed side effects. Discussed lifestyle changes including elevating the head of bed, decreasing tomato products, no minty products or caffiene, and weight loss. Follow up in 2 months, sooner if symptoms worsen. Hypersomnia 08/25/2023 Assessment & Plan (08/25/2023 10:07 AM GARLAND MACHINE OPERATOR): Discussed sleep hygiene and weight loss. Will obtain home sleep study Bilateral hip pain 08/14/2023 Assessment & Plan (08/14/2023 7:30 AM GARLAND MACHINE OPERATOR): Will obtain imaging of the hips and [...] generalized anxiety, and difficulties managing the worry. Man yehuda reported she was placed in assisted last week for inappropriately using 911. She [...] Silvana's children live with her sister in [place]. Her sister has guardianship. Silvana reported today a stable mood and affect. She requested weekly appointments at this time which seems appropriate. Patient was excited for the option of tele health. Interventions: A person centered approach was used to process current cognitions and affect. SHORT TERM GOALS -Process/address current stressors -Take any medications as prescribed -Attend therapy appointments SNF GOALS -Improve coping skills to manage stressors -Decrease symptoms of current mental illness/problem -Improve overall functioning Psychological condition is improving with treatment. Referral to psychological counseling. Psychological condition will be reassessed at the next regular appointment. Additional Health Concerns Active Problems Noted Date Diagnosed Date Diet Management 11/18/2023 Patient is Inactive 11/18/2023 Medication Adherence 11/18/2023 Lack of housing 03/28/2025 Goals Goal Patient Goal Type Associated Problems Recent Progress Patient-Stated? Author Learn to Manage Calories Care Plan Diet Management On track( 024 11:21 AM CDT) Danitza Sanchez, RN Note: Images from the original note [...] is about the size of your fist. Maura last reviewed this educational content on 07/24/2022 The [employer]. All rights reserved. This information is not intended as a substitute for professional medical care. Always follow your healthcare professional's instructions. Exercise at Least 20 Minutes per Day Care Plan Patient is Inactive On track( 11:33 AM CDT) Danitza Sanchez, RN Note: Images from the original note were not included. Patient reports that she has low back and hip pain. Work to find ways to exercise that minimize pain such as seated exercises, swimming, etc. [employer] Keeping Your Back Healthy Back pain is [...] following code: OR Go to the website: www.[employer] Enter the prescription code: RKX The [employer]. All rights reserved. This information is not [...] is homeless and currently in a women's residential out of town and needs to find a place close to [place]. Interventions Care Plan Interventions Intervention Entry Date Outcome Assign community resources for housing assistance 03/28/2025 Discuss current housing plan with patient 03/28/2025 Educate patient on frequency and refill details of meds 11/18/2023 Discuss barriers to medication adherence with patient 11/18/2023 Explore community resources including walking groups, assistance programs, and home videos 11/18/2023 Develop exercise plan with patient 11/18/2023 Provide resources on counting calories 11/18/2023 Provide resources for diet 11/18/2023 Related Goals and Interventions Goal Associated Intervent ions Learn to Manage Calories Provide resourc es on counting calories; Provide resources for diet Exercise at Least 20 Minutes per Day Exp venkat community resources including walking groups, assistance programs, and home videos; Develop exercise plan with patient Consistently take Medication s as Prescribed Educate patient on frequency and refill details of meds; Discuss barriers to medication adherence with patient Assist with finding housing Assign hadley caballero resources for housing assistance; Discuss current housing plan with patient
--- OUTSIDE RECORDS SUMMARY | 2025-04-02 05:41 | XMS_ITS | Encounter Summary ---
Author Organization [facility] Address [address] [place] [address] Care Team Providers Care Efficiency Miner Blasting Name Role Phone Kirsty Ricci PA-C Primary Care Provider [phone] Encounter Details Date Type Department Care Team (Late st Contact Info) Description 05/01/2015 Orders Only [facility] Radiology [address] [place] [address] System, Provider Not In, [address] [place] [address] Social History Tobacco Use Types Packs/Day Years [...] Date/Time Associated Diagnosis Comments OUTSIDE IMAGES 05/01/2015 12:59 PM CDT documented in this encounter Results * Outside Images (05/01/2015 12:59 PM CDT) Anatomical Region Laterality Modality N/A Radiographic Ladonna ging 05/01/2015 12:5 9 PM CDT Narrative 05/01/2015 12:59 PM CDT Historic images from [facility] exist and can be viewed by using the hyperlink to access [employer] pacs: EP RT ANKLE - 3 VIEWS/ANKLE PAIN Procedure Note System, Provider Not In - 10/15/2019 Historic images from [facility] exist and can be viewed byusing the hyperlink to access [employer] pacs: EP RT ANKLE - 3 VIEWS/ANKLEPAIN us Provider Not In System MD DAVIS [...] MRSA (Other) 01/02/2021 01/02/2021 07/01/2021 4:00 AM MOTOR MECHANIC COVID-19 (rule out) 02/05/2022 02/05/2022 02/06/20 22 5:36 PM CDT COVID-19/Influenza (Rule Out) 07/17/2022 07/17/2022 07/17/2022 9:39 AM MOTOR MECHANIC COVID-19 (confirmed) 07/17/2022 07/17/2022 022 4:00 AM MOTOR MECHANIC COVID-19 (rule out) 02/07/2025 02/07/2025 02/08/20 25 10:09 PM CDT COVID-19 (rule out) 02/17/2025 02/17/2025 02/18/20 25 1:32 PM CDT documented as of this encounter Care Teams Efficiency Miner Blasting Relationship Specialty Start Date End Date Kirsty Ricci PA-C [address] [place] [id number] PCP - General Physician Licensed Real Estate Broker 05/05/23 documented as of this encounter
[2025-04-02 05:50] VITALS: BP 119/83; PULSE 88; RESP 20; TEMP 36.8; O2SAT 98; BMI 49.9
--- NOTE | 2025-04-02 05:58 | CTR_ITS ---
PROCEDURE INFORMATION: Exam: CT Abdomen And Pelvis Without Contrast Exam date and time: 04/02/2025 6:49 AM Age: 39 years old Clinical indication: Abdominal pain; Localized; Prior surgery; Surgery date: 6+ months; Surgery type: Csection x 2; C/O lower abd pain with dysuria. Diagnosed with UTI two days ago. ; Additional info: Flank pain TECHNIQUE: Imaging protocol: Computed tomography of the abdomen and pelvis without contrast. Radiation optimization: All CT scans at this facility use at least one of these dose optimization techniques: automated exposure control; mA and/or kV adjustment per patient size (includes targeted exams where dose is matched to clinical indication); or iterative reconstruction. COMPARISON: No relevant prior studies available. RADIATION DOSE METRICS: Total DLP (mGy-cm): 1331.84 FINDINGS: Liver: Normal. No mass. Gallbladder and biliary ducts: Normal. No calcified stones. No ductal dilation. Pancreas: Normal. No ductal dilation. Spleen: Normal. No splenomegaly. Adrenal glands: Normal. No mass. Kidneys and ureters: Normal. No hydronephrosis. No urolithiasis. Stomach and bowel: Unremarkable. No obstruction. No mucosal thickening. Appendix: No evidence of appendicitis. Intraperitoneal space: Unremarkable. No free air. No significant fluid collection. Vasculature: Unremarkable. No abdominal aortic aneurysm. Lymph nodes: Unremarkable. No enlarged lymph nodes. Urinary bladder: The bladder is decompressed. Reproductive: Unremarkable as visualized. Bones/joints: Unremarkable. No acute fracture. Soft tissues: Unremarkable. CT/CT kidney stone [id number] IMPRESSION: No acute findings.
--- NOTE | 2025-04-02 05:59 | W.ED.FEMALGU ---
HPI - Female Genitourinary General: Chief complaint: Urogenital-Female Stated complaint: UTI Time Seen by Provider: 04/02/25 05:58 Source: patient Mode of arrival: ambulatory Limitations: no limitations History of Present Illness: 39-year-old female states that she has been having dysuria for the last 3 days. She states that she has been having severe burning with urination was seen by her PCP and was started on antibiotics states that she still having burning though. She is having some slight flank pain as well and is concerned she had a kidney stone she denies any vomiting denies any fevers denies any worse improved factors. Associated symptoms: Reports abdominal pain; Deny headache(s) or nausea Review of Systems Const: Denies: fever(s), chills, body aches or change in appetite Eyes: Reports: blurry vision and eye discomfort ENMT: Denies: throat pain or dental pain Card: Denies: chest pain Resp: Denies: dyspnea GI: Reports: abdominal pain; Denies: nausea, vomiting or diarrhea : Reports: dysuria Musc: Denies: neck pain or back pain Skin/Breast: Denies: rash Neuro: Denies: headache(s) Physical Exam Const: COMMON NORMALS: no acute distress, patient oriented x3 and healthy appearing HENMT: COMMON NORMALS: normocephalic and atraumatic HEAD & SCALP: normocephalic and atraumatic Eye: COMMON NORMALS: conjunctivae normal CONJUNCTIVA: Yes conjunctivae normal Neck/C-Spine: COMMON NORMALS: full ROM and supple Chest: COMMONS NORMALS: normal inspection of the chest Resp: COMMON NORMALS: normal respiratory effort, No retractions, No use of accessory muscles and clear to auscultation bilaterally AUSCULTATION: clear to auscultation bilaterally Cardio: COMMON NORMALS: regular rate, regular rhythm and No murmurs present (Cardio) RATE: regular rate RHYTHM: regular rhythm GI: COMMON NORMALS: Normal to inspection, nondistended, normoactive bowel sounds present, Soft to palpation, non-tender and no masses PALPATION: Yes Soft to palpation Extremity: COMMON NORMALS: normal to inspection and full ROM Neuro: COMMON NORMALS: patient oriented x3, moves all extremities and no focal motor deficits Psych: COMMON NORMALS: mental status grossly normal, Normal thought process present and cooperative THOUGHT PROCESS: Normal thought process present Skin: COMMON NORMALS: no rashes or lesions noted and no wounds GENERAL SKIN EXAM: no rashes or lesions noted Course Vital Signs: Vital signs: Vital Signs Temperature 98.2 F 04/02/25 05:50 Pulse Rate 86 04/02/25 07:30 Respiratory Rate 16 04/02/25 06:35 Blood Pressure 92/51 04/02/25 07:30 Pulse Oximetry 98 04/02/25 07:30 MDM - Female Medical Decision Making Patient presents with UTI no signs of kidney stone on CT blood work is normal she is stable for discharge continue antibiotics did give her a dose of IM Rocephin here. Medical Records I reviewed the patient's medical records. Lab Data I reviewed the patient's lab results. 04/02/25 06:38 04/02/25 06:38 Radiology Impressions Abdomen/Pelvis CT 04/02/25 05:58 IMPRESSION: No acute findings. Laboratory Results WBC 3.97 10^3/uL (3.29-11.43) 04/02/25 06:38 Corrected WBC Cancelled 04/02/25 06:18 RBC 4.56 10^6/uL (3.85-5.65) 04/02/25 06:38 Hgb 11.00 g/dL (11.27-16.99) L 04/02/25 06:38 Hct 37.0 % (36-47) 04/02/25 06:38 MCV 81.1 fl (85-98) L 04/02/25 06:38 MCH 24.1 pg (27-33) L 04/02/25 06:38 MCHC 29.7 g/dL (30-55) L 04/02/25 06:38 RDW 14.6 % (12.1-15.1) 04/02/25 06:38 Plt Count 215 10^3/cmm (157-399) 04/02/25 06:38 MPV 9.2 fL (7.4-10.4) 04/02/25 06:38 Gran % Cancelled 04/02/25 06:18 Neut % (Auto) 59.4 % 04/02/25 06:38 Lymph % (Auto) 33.2 % 04/02/25 06:38 [place] % (Auto) 6.8 % 04/02/25 06:38 Eos % (Auto) 0.0 % 04/02/25 06:38 Baso % (Auto) 0.3 % 04/02/25 06:38 Neut # (Auto) 2.36 10^3/uL (1.8-7.7) 04/02/25 06:38 Lymph # (Auto) 1.3 10^3/uL (0.8-4.8) 04/02/25 06:38 [place] # (Auto) 0.3 10^3/uL (0.2-0.9) 04/02/25 06:38 Eos # (Auto) 0.0 10^3/uL (0.0-0.8) 04/02/25 06:38 Baso # (Auto) 0.0 10^3/uL (0.0-0.1) 04/02/25 06:38 Absolute Gran (auto) Cancelled 04/02/25 06:18 Nucleated RBC % (auto) 0 % 04/02/25 06:38 Nucleated RBCs # 0.0 /100WBC 04/02/25 06:38 Sodium 141 mmol/L (136-145) 04/02/25 06:38 Potassium 4.4 mmol/L (3.5-5.1) 04/02/25 06:38 Chloride 110 mmol/L (98-107) H 04/02/25 06:38 Carbon Dioxide 22 mmol/L (22-29) 04/02/25 06:38 Anion Gap 13.4 (5-19) 04/02/25 06:38 BUN 21 mg/dL (6-20) H 04/02/25 06:38 Creatinine 0.9 mg/dL (0.5-0.9) 04/02/25 06:38 GFR Calculation 69.7 mL/min (90-130) L 04/02/25 06:38 Glucose 90 mg/dL (65-115) 04/02/25 06:38 Calculated Osmolality 295 mOsm/kg (285-295) 04/02/25 06:38 Calcium 8.5 mg/dL (8.5-10.5) 04/02/25 06:38 Total Bilirubin 0.2 mg/dL (0.15-1.2) 04/02/25 06:38 AST 10 U/L (0-32) 04/02/25 06:38 ALT 9 U/L (0-33) 04/02/25 06:38 Alkaline Phosphatase 106 U/L (35-105) H 04/02/25 06:38 Total Protein 6.4 g/dL (6.6-8.7) L 04/02/25 06:38 Albumin 3.5 g/dL (3.5-5.2) 04/02/25 06:38 Globulin 2.9 g/dL (1.3-4.6) 04/02/25 06:38 Lipase 28 U/L (13-60) 04/02/25 06:38 HCG, Qual Negative (Negative) 04/02/25 06:18 Urine Color Dark yellow (Yellow) A 04/02/25 06: Urine Appearance Turbid (CLEAR) A 04/02/25 06: Urine pH 5.0 (5-7) 04/02/25 06:29 Ur Specific [place] 1.030 (1.005-1.030) 04/02/25 06:29 Urine Protein 2+ (Negative) A 04/02/25 06:29 Urine Glucose (UA) Negative (Normal) 04/02/25 06:29 Urine Ketones Trace (Negative) 04/02/25 06:29 Urine Blood 3+ (Negative) A 04/02/25 06: Urine Nitrate Negative (Negative) 04/02/25 06: Urine Bilirubin Negative (Negative) 04/02/25 06:29 Urine Urobilinogen 1.0 mg/dL (Negative) 04/02/25 06:29 Ur Leukocyte Esterase 2+ (Negative) A 04/02/25 06: Urine RBC 21-50 /hpf (0-2) H 04/02/25 06:29 Urine WBC >100 /hpf (0-5) H 04/02/25 06:29 Ur Squamous Epith Cells 6-10 /hpf (0-5) 04/02/25 06: Amorphous Sediment Not Reportable 04/02/25 06: Urine Bacteria 1+ /hpf (NONE) H 04/02/25 06:29 Hyaline Casts 0.81 /lpf 04/02/25 06:29 All radiology interpretation(s) finalized by discharge Discharge Plan Discharge Condition: Stable Print Language: Azeri Coding Level of Care Code ED Manager User Experience for Chg Watson
[2025-04-02] MEDS: ondansetron 2 mg/ML SDV 2 mL 4 MG IVP (06:26)
[2025-04-02 06:35] VITALS: BP 113/78; PULSE 88; RESP 16; O2SAT 99
[2025-04-02 06:40] LABS: Glucose Urine UA Negative (Normal); Nitrate Urine Negative (Negative); Specific Gravity, Urine 1.030 (1.005-1.030)
[2025-04-02 06:41] LABS: HCG, Serum Qual Negative (Negative)
[2025-04-02 06:45] LABS: Add Urine Microscopic? YES
[2025-04-02 07:03] LABS: Hematocrit 37.0 % (36-47); Hemoglobin 11.00 g/dL (11.27-16.99); Mean Corpuscular HGB Conc 29.7 g/dL (30-55); Mean Corpuscular Hemoglobin 24.1 pg (27-33); Mean Corpuscular Volume 81.1 fl (85-98); Nucleated Red Blood Cells % 0 %; Platelet Count 215 10^3/cmm (157-399); Red Blood Count 4.56 10^6/uL (3.85-5.65); White Blood Count 3.97 10^3/uL (3.29-11.43)
[2025-04-02 07:04] LABS: UA Slide Review UA Slide Review Perf
[2025-04-02 07:13] LABS: Alanine Aminotransferase 9 U/L (0-33); Albumin Level 3.5 g/dL (3.5-5.2); Alkaline Phosphatase 106 U/L (35-105); Anion Gap 13.4 (5-19); Aspartate Amino Transferase 10 U/L (0-32); Blood Urea Nitrogen 21 mg/dL (6-20); Calcium 8.5 mg/dL (8.5-10.5); Carbon Dioxide 22 mmol/L (22-29); Chloride 110 mmol/L (98-107); Creatinine Clr Calc Pharmacy 117.4227; Globulin 2.9 g/dL (1.3-4.6); Glucose 90 mg/dL (65-115); Lipase 28 U/L (13-60); Osmolality Calculated 295 mOsm/kg (285-295); Potassium 4.4 mmol/L (3.5-5.1); Sodium 141 mmol/L (136-145); Total Protein 6.4 g/dL (6.6-8.7)
[2025-04-02 07:30] VITALS: BP 92/51; PULSE 86; O2SAT 98
--- NOTE | 2025-04-02 08:22 | W.ED.FEMALGU ---
HPI - Female Genitourinary General: Chief complaint: Urogenital-Female Stated complaint: UTI Time Seen by Provider: 04/02/25 05:58 Source: patient Mode of arrival: ambulatory Limitations: no limitations History of Present Illness: . Course Vital Signs: Vital signs: Vital Signs Temperature 98.2 F 04/02/25 05:50 Pulse Rate 84 04/02/25 08:34 Respiratory Rate 16 04/02/25 06:35 Blood Pressure 126/91 04/02/25 08:34 Pulse Oximetry 99 04/02/25 08:34 MDM - Female Medical Decision Making Diagnoses on this chart for previous completed chart Lab Data 04/02/25 06:38 04/02/25 06:38 Radiology Impressions Abdomen/Pelvis CT 04/02/25 05:58 IMPRESSION: No acute findings. Laboratory Results WBC 3.97 10^3/uL (3.29-11.43) 04/02/25 06:38 Corrected WBC Cancelled 04/02/25 06:18 RBC 4.56 10^6/uL (3.85-5.65) 04/02/25 06:38 Hgb 11.00 g/dL (11.27-16.99) L 04/02/25 06:38 Hct 37.0 % (36-47) 04/02/25 06:38 MCV 81.1 fl (85-98) L 04/02/25 06:38 MCH 24.1 pg (27-33) L 04/02/25 06:38 MCHC 29.7 g/dL (30-55) L 04/02/25 06:38 RDW 14.6 % (12.1-15.1) 04/02/25 06:38 Plt Count 215 10^3/cmm (157-399) 04/02/25 06:38 MPV 9.2 fL (7.4-10.4) 04/02/25 06:38 Gran % Cancelled 04/02/25 06:18 Neut % (Auto) 59.4 % 04/02/25 06:38 Lymph % (Auto) 33.2 % 04/02/25 06:38 [place] % (Auto) 6.8 % 04/02/25 06:38 Eos % (Auto) 0.0 % 04/02/25 06:38 Baso % (Auto) 0.3 % 04/02/25 06:38 Neut # (Auto) 2.36 10^3/uL (1.8-7.7) 04/02/25 06:38 Lymph # (Auto) 1.3 10^3/uL (0.8-4.8) 04/02/25 06:38 [place] # (Auto) 0.3 10^3/uL (0.2-0.9) 04/02/25 06:38 Eos # (Auto) 0.0 10^3/uL (0.0-0.8) 04/02/25 06:38 Baso # (Auto) 0.0 10^3/uL (0.0-0.1) 04/02/25 06:38 Absolute Gran (auto) Cancelled 04/02/25 06:18 Nucleated RBC % (auto) 0 % 04/02/25 06:38 Nucleated RBCs # 0.0 /100WBC 04/02/25 06:38 Sodium 141 mmol/L (136-145) 04/02/25 06:38 Potassium 4.4 mmol/L (3.5-5.1) 04/02/25 06:38 Chloride 110 mmol/L (98-107) H 04/02/25 06:38 Carbon Dioxide 22 mmol/L (22-29) 04/02/25 06:38 Anion Gap 13.4 (5-19) 04/02/25 06:38 BUN 21 mg/dL (6-20) H 04/02/25 06:38 Creatinine 0.9 mg/dL (0.5-0.9) 04/02/25 06:38 GFR Calculation 69.7 mL/min (90-130) L 04/02/25 06:38 Glucose 90 mg/dL (65-115) 04/02/25 06:38 Calculated Osmolality 295 mOsm/kg (285-295) 04/02/25 06:38 Calcium 8.5 mg/dL (8.5-10.5) 04/02/25 06:38 Total Bilirubin 0.2 mg/dL (0.15-1.2) 04/02/25 06:38 AST 10 U/L (0-32) 04/02/25 06:38 ALT 9 U/L (0-33) 04/02/25 06:38 Alkaline Phosphatase 106 U/L (35-105) H 04/02/25 06:38 Total Protein 6.4 g/dL (6.6-8.7) L 04/02/25 06:38 Albumin 3.5 g/dL (3.5-5.2) 04/02/25 06:38 Globulin 2.9 g/dL (1.3-4.6) 04/02/25 06:38 Lipase 28 U/L (13-60) 04/02/25 06:38 HCG, Qual Negative (Negative) 04/02/25 06:18 Urine Color Dark yellow (Yellow) A 04/02/25 06:29 Urine Appearance Turbid (CLEAR) A 04/02/25 06: Urine pH 5.0 (5-7) 04/02/25 06:29 Ur Specific [place] 1.030 (1.005-1.030) 04/02/25 06:29 Urine Protein 2+ (Negative) A 04/02/25 06:29 Urine Glucose (UA) Negative (Normal) 04/02/25 06: Urine Ketones Trace (Negative) 04/02/25 06:29 Urine Blood 3+ (Negative) A 04/02/25 06:29 Urine Nitrate Negative (Negative) 04/02/25 06: Urine Bilirubin Negative (Negative) 04/02/25 06: Urine Urobilinogen 1.0 mg/dL (Negative) 04/02/25 06:29 Ur Leukocyte Esterase 2+ (Negative) A 04/02/25 06:29 Urine RBC 21-50 /hpf (0-2) H 04/02/25 06:29 Urine WBC >100 /hpf (0-5) H 04/02/25 06:29 Ur Squamous Epith Cells 6-10 /hpf (0-5) 04/02/25 06:29 Amorphous Sediment Not Reportable 04/02/25 06: Urine Bacteria 1+ /hpf (NONE) H 04/02/25 06:29 Hyaline Casts 0.81 /lpf 04/02/25 06:29 All radiology interpretation(s) finalized by discharge Discharge Plan Discharge Patient Disposition: Home Clinical Impression: Urinary tract infection Condition: Stable Discharge Orders: Discharge ED (Routine); Ordered 04/02/25 Ordered By: Rachel Stroud Discharge Diet: Advance as tolerated Discharge Activity: Resume usual activity Patient Instructions: Urinary Tract Infection in Women (ED) Print Language: Bulgarian Coding Level of Care Code ED Power Chisel Operator for Marley Chaudhari
[2025-04-02] MEDS: cefTRIAXone 1,000 MG in water for injection-sterile 2.1 ML 2.1 MG IM (08:33)
[2025-04-02 08:34] VITALS: BP 126/91; PULSE 84; O2SAT 99
== END 2025-04-02 08:36 | disposition home or self-care (01) ==
PROVIDERS: Emergency Provider Emergency Medicine
DX: N39.0 Urinary tract infection, site not specified (principal)
CPT/HCPCS: 36415; 74176; 80053; 81001; 83690; 84703; 85025; 87086; 96372; 96374; 96375; 99285; J0696; J1885; J2405

== ENCOUNTER 2025-04-10 09:33 | Emergency (ER) | payer MEDICAID, SELFPAY ==
--- OUTSIDE RECORDS SUMMARY | 2025-04-10 09:39 | XMS_ITS | Encounter Summary ---
Author Organization [facility] Address [address] [place] [address] Care Team Providers Care Hearth Feeder Name Role Phone Kirsty Ricci PA-C Primary Care Provider [phone] Reason for Visit * Reason Comments Med Refill Encounter Details Date Type Department Care Team (Late st Contact Info) Description 03/16/2024 Refill [facility] - Primary Care [address] [place] [address] Kirsty Ricci PA-C [address] [place] [place] [address] UTI symptoms Social History Tobacco Use Types Packs/Day Years Used Date Smoking Tobacco: Never Smokeless Tobacco: Former Chew Alcohol Use Standard Drinks/Week Comments No 0 (1 standard drink = 0.6 oz pur e alcohol) [facility] Utilities Answer Date Recorded In the past 12 months has Mobile Shareholder, oil, or water [employer] threatened to shut off services in your [...] How often do you attend christian or catholic serv ices? Never 01/07/2024 Do you belong [...] place to sleep or slept in a long-term (including now)? No 01/07/2024 Comments Unknown Sex [...] is about the size of your fist. [employer] last reviewed this educational content on 07/24/202219992159-2013 The [employer]. All rights reserved. This information is not [...] following code: OR Go to the website: www.B[employer]u [employer] Enter the prescription code: RKX [employer]. All rights reserved. This information is not [...] documented as of this encounter Care Teams Hearth Feeder Relationship Specialty Start Date End Date Kirsty Ricci, PARowanC [address] [place] [address] PCP - General Physician Dental Cream Maker 05/05/23 documented as of this encounter
--- OUTSIDE RECORDS SUMMARY | 2025-04-10 09:39 | XMS_ITS | Encounter Summary ---
Author Organization [facility] Address [address] [place] [address] Care Team Providers Care Oil Recovery Operator Name Role Phone Kirsty Ricci PA-C Primary Care Provider [phone] Reason for Visit * Reason Comments Med Refill Encounter Details Date Type Department Care Team (Late st Contact Info) Description 05/27/2024 Refill [facility] - Primary Care [address] [place] [address] Kirsty Ricci PA-C [address] [facility] [place] [address] Acute cystitis with hematuria Social History Tobacco Use Types Packs/Day Years Used Date Smoking Tobacco: Never Smokeless Tobacco: Former Chew Alcohol Use Standard Drinks/Week Comments No 0 (1 standard drink = 0.6 oz pur e alcohol) [facility] Utilities Answer Date Recorded In the past 12 months has [employer] gas, oil, or water [employer] threatened to shut off services in your [...] week 01/07/2024 How often do you attend cheondoism or jainism serv ices? Never 01/07/2024 Do you belong to any clubs o r organizations such as cheondoism groups, unions, fraternal or athletic groups, or [...] Answer Date Recorded PHQ-2 Score 0 08/25/2023 [facility] of Occupat ional Health - Occupational [...] place to sleep or slept in a senior care (including now)? No 01/07/2024 Comments Unknown Sex [...] is about the size of your fist. [facility] reviewed this educational content on 07/24/202219992233-4842 [employer]. All rights reserved. This information is not [...] following code: OR Go to the website: www.[employer] Enter the prescription code: RKX [employer]. All rights reserved. This information is not [...] documented as of this encounter Care Teams Oil Recovery Operator Relationship Specialty Start Date End Date Kirsty Ricci PA-C [address] [place] [phone] PCP - General Physician General Lot Attendant 05/05/23 documented as of this encounter
--- OUTSIDE RECORDS SUMMARY | 2025-04-10 09:39 | XMS_ITS | Encounter Summary ---
Author Organization [facility] Address [address] [place] [address] Care Team Providers Care Planning Specialist Name Role Phone Kirsty Ricci PA-C Primary Care Provider [phone] Reason for Visit * Reason Onset Date Comments Med Refill 12/07/2023 Encounter Details Date Type Department Care Team (Late st Contact Info) Description 12/07/2023 Refill [facility] - Primary Care [address] [place] [address] Kirsty Ricci PA-C [address] [place] [address]. [place] [address] Social History Tobacco Use Types [...] is about the size of your fist. meets last reviewed this educational content on 07/24/202219993841-9408 The [employer]. All rights reserved. This information is [...] following code: OR Go to the website: www.[employer] Enter the prescription code: RKX [employer]. All rights reserved. This information is [...] documented as of this encounter Care Teams Planning Specialist Relationship Specialty Start Date End Date Kirsty Ricci PA-C [address] [place] [address] PCP - General Physician Direct Care Counselor 05/05/23 documented as of this encounter
--- OUTSIDE RECORDS SUMMARY | 2025-04-10 09:40 | XMS_ITS | Patient Health Record ---
Author Organization [facility] Address [address] [place] [address] Care Team Providers Care Carpet Loom Fixer Name Role Phone JIM BRISENO Primary Care [...] Status Risk Notes Problem Posttraumatic stress disorder (74658853) Post-traumatic stress disorder, chronic (F43.12) Active confirmed Problem Bipolar disorder (78131172) Bipolar disorder, unspecified (F31.9) Active confirmed Plan Of Treatment No Information Insurance Providers Payer Name Payer Address Payer Phone Subscriber Number Group Number Insured Name Patient Relationship to Insured Coverage Start Date Coverage End Date [place] [address] [id number] JOHN CARRASCO Self - patient is the insured Medical (General) History Medical History History ICD Code BIPOLAR SCHIZPHRENIA PTSD ANXIETY Surgical History Surgery Date(Month/Year) X2 C-SECTIONS Hospitalization History Reason Date(Month/Year) MENTAL
--- OUTSIDE RECORDS SUMMARY | 2025-04-10 09:40 | XMS_ITS | Encounter Summary ---
Author Organization [facility] Address [address] [place] [address] Care Team Providers Care Technical Sales Support Manager Name Role Phone Kirsty Ricci PA-C Primary Care Provider [phone] Encounter Details Date Type Department Care Team (Late st Contact Info) Description 05/01/2015 Orders Only [facility] Radiology [address] [facility] [place] [address] System, Provider Not In, [address] [facility] [place] [address] Social History Tobacco Use Types Packs/Day Years [...] 05/01/2015 1:02 PM CDT Historic images from [facility] exist and can be viewed by using the hyperlink to access Shoulder Tap pacs: EP LT ANKLE - 3 VIEWS/AKLE PAIN Procedure Note System, Provider Not In - 10/15/2019 Historic images from [facility] exist and can be viewed byusing the hyperlink to access Shoulder Tap pacs: EP LT ANKLE - 3 VIEWS/AKLEPAIN [...] MRSA (Other) 01/02/2021 01/02/2021 07/01/2021 4:00 AM AIR TABLE OPERATOR COVID-19 (rule out) 02/05/2022 02/05/2022 02/06/20 22 5:36 PM CDT COVID-19/Influenza (Rule Out) 07/17/2022 07/17/2022 07/17/2022 9:39 AM AIR TABLE OPERATOR COVID-19 (confirmed) 07/17/2022 07/17/2022 022 4:00 AM AIR TABLE OPERATOR COVID-19 (rule out) 02/07/2025 02/07/2025 02/08/20 25 10:09 PM CDT COVID-19 (rule out) 02/17/2025 02/17/2025 02/18/20 25 1:32 PM CDT documented as of this encounter Care Teams Technical Sales Support Manager Relationship Specialty Start Date End Date Kirsty Ricci PA-C [address] [place] [id number] PCP - General Physician Motor Builder Assembler 05/05/23 documented as of this encounter
--- OUTSIDE RECORDS SUMMARY | 2025-04-10 09:40 | XMS_ITS | Encounter Summary ---
Author Organization [facility] Address [address] [place] [address] Care Team Providers Care Demurrage Agent Name Role Phone Kirsty Ricci PA-C Primary Care Provider [phone] Reason for Visit * Reason Onset Date Comments Med Refill 11/19/2023 Encounter Details Date Type Department Care Team (Late st Contact Info) Description 11/19/2023 Refill [facility] - Primary Care [address] [place] [address] Kirsty Ricci PA-C [address] [place] [address]. [place] [address] Anemia, unspecified type Social History [...] is about the size of your fist. [employer] last reviewed this educational content on 07/24/202219999312-7465 [employer]. All rights reserved. This information is not [...] following code: OR Go to the website: www.[employer] Enter the prescription code: TONNYX [employer]. All rights reserved. This information is not [...] documented as of this encounter Care Teams Demurrage Agent Relationship Specialty Start Date End Date Kirsty Ricci PA-C [address] [place] [address] PCP - General Physician Commercial Real Estate Agent 05/05/23 documented as of this encounter
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
--- OUTSIDE RECORDS SUMMARY | 2025-04-10 09:40 | XMS_ITS | Encounter Summary ---
Author Organization [facility] Address [address] [place] [address] Care Team Providers Care Telecommunications Network Engineer Name Role Phone Kirsty Ricci PA-C Primary Care Provider [phone] Encounter Details Date Type Department Care Team (Late st Contact Info) Description 05/01/2015 Orders Only [facility] Rad[facility] [address] [facility] [place] [address] System, Provider Not In, [address] [facility] [place] [address] Social History Tobacco Use Types Packs/Day Years [...] 05/01/2015 12:59 PM CDT Historic images from 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 COVID-19 (rule out) 02/05/2022 02/05/2022 02/06/20 22 5:36 PM CDT COVID-19/Influenza (Rule Out) 07/17/2022 07/17/2022 07/17/2022 9:39 AM POULTRY FARM WORKER COVID-19 (confirmed) 07/17/2022 07/17/2022 022 4:00 AM POULTRY FARM WORKER COVID-19 (rule out) 02/07/2025 02/07/2025 02/08/20 25 10:09 PM CDT COVID-19 (rule out) 02/17/2025 02/17/2025 02/18/20 25 1:32 PM CDT documented as of this encounter Care Teams Telecommunications Network Engineer Relationship Specialty Start Date End Date Kirsty Ricci PA-C [address] [place] [id number] PCP - General Physician Director Compliance 05/05/23 documented as of this encounter
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
--- OUTSIDE RECORDS SUMMARY | 2025-04-10 09:40 | XMS_ITS | Encounter Summary ---
Author Organization [facility] Address [address] [place] [address] Care Team Providers Care Bakery Sales Clerk Name Role Phone Kirsty Ricci PA-C Primary Care Provider Encounter Details Date Type Department Care Team (Late st Contact Info) Description 07/06/2014 Orders Only [facility] [address] [facility] [facility] [place] [address] System, Provider Not In, [address] [facility] [place] [address] Social History Tobacco Use Types Packs/Day Years [...] Diagnosis Comments OUTSIDE IMAGES 07/06/2014 9:41 AM POLICE DISTRICT SWITCHBOARD OPERATOR documented in this encounter Results * Outside Images (07/06/2014 9:41 AM POLICE DISTRICT SWITCHBOARD OPERATOR) Anatomical Region Laterality Modality N/A Radiographic Ladonna ging 07/06/2014 9:41 AM POLICE DISTRICT SWITCHBOARD OPERATOR Narrative 07/06/2014 9:41 AM POLICE DISTRICT SWITCHBOARD OPERATOR Historic images from [facility] exist and can be viewed by using the hyperlink to access [employer] pacs: RUQ US Procedure Note System, Provider Not In - 10/15/2019 Historic images from [facility] exist and can be viewed byusing the hyperlink to access [employer] pacs: RUQ US us Provider Not In [...] MRSA (Other) 01/02/2021 01/02/2021 07/01/2021 4:00 AM POLICE DISTRICT SWITCHBOARD OPERATOR COVID-19 (rule out) 02/05/2022 02/05/2022 02/06/20 22 5:36 PM CDT COVID-19/Influenza (Rule Out) 07/17/2022 07/17/2022 07/17/2022 9:39 AM POLICE DISTRICT SWITCHBOARD OPERATOR COVID-19 (confirmed) 07/17/2022 07/17/2022 022 4:00 AM POLICE DISTRICT SWITCHBOARD OPERATOR COVID-19 (rule out) 02/07/2025 02/07/2025 02/08/20 25 10:09 PM CDT COVID-19 (rule out) 02/17/2025 02/17/2025 02/18/20 25 1:32 PM CDT documented as of this encounter Care Teams Bakery Sales Clerk Relationship Specialty Start Date End Date Kirsty Ricci PA-C [address] [place] [id number] PCP - General Physician Restaurant Management Internship 05/05/23 documented as of this encounter
--- OUTSIDE RECORDS SUMMARY | 2025-04-10 09:40 | XMS_ITS | Encounter Summary ---
Author Organization [facility] Address [address] [place] [address] Care Team Providers Care High School Football Coach Name Role Phone Kirsty Ricci PA-C Primary Care Provider [phone] Encounter Details Date Type Department Care Team (Late st Contact Info) Description 06/13/2015 Orders Only [facility] [address] [facility] [place] [address] System, Provider Not In, [address] [facility] [place] [address] Social History Tobacco Use Types Packs/Day Years [...] 06/13/2015 10:44 AM CDT Historic images from [facility] exist and can be viewed by using the hyperlink to access [employer] pacs: PELVIC US Procedure Note System, Provider Not In - 10/15/2019 Historic images from [facility] exist and can be viewed byusing the hyperlink to access [employer] pacs: PELVIC US us Provider Not In [...] MRSA (Other) 01/02/2021 01/02/2021 07/01/2021 4:00 AM HABILITATION TRAINING SPECIALIST COVID-19 (rule out) 02/05/2022 02/05/2022 02/06/20 22 5:36 PM CDT COVID-19/Influenza (Rule Out) 07/17/2022 07/17/2022 07/17/2022 9:39 AM HABILITATION TRAINING SPECIALIST COVID-19 (confirmed) 07/17/2022 07/17/2022 022 4:00 AM HABILITATION TRAINING SPECIALIST COVID-19 (rule out) 02/07/2025 02/07/2025 02/08/20 25 10:09 PM CDT COVID-19 (rule out) 02/17/2025 02/17/2025 02/18/20 25 1:32 PM CDT documented as of this encounter Care Teams High School Football Coach Relationship Specialty Start Date End Date Kirsty Ricci PA-C [address] [place] [phone] PCP - General Physician Lead Recoverer 05/05/23 documented as of this encounter
--- OUTSIDE RECORDS SUMMARY | 2025-04-10 09:40 | XMS_ITS | Clinical Summary ---
Author Organization [facility] Address [address] [place] [address] Care Team Providers Care Service Station Equipment Mechanic Name Role Phone Kirsty Ricci PA-C Primary Care Provider [phone] Allergies Active Allergy Reactions Criticality Noted Date [...] 08/25/2023 Assessment & Plan (08/25/2023 10:07 AM WOMEN'S STUDIES PROFESSOR): 30-year-old female with the above diagnoses. Up-to-date on cervical cancer screen, followed by assembler movement. Labs obtained today. Will call with results Gastroesophageal reflux disease 08/25/2023 Assessment & Plan (08/25/2023 10:08 AM WOMEN'S STUDIES PROFESSOR): Will start on a PPI, discussed side effects. Discussed lifestyle changes including elevating the head of bed, decreasing tomato products, no minty products or caffiene, and weight loss. Follow up in 2 months, sooner if symptoms worsen. Hypersomnia 08/25/2023 Assessment & Plan (08/25/2023 10:07 AM WOMEN'S STUDIES PROFESSOR): Discussed sleep hygiene and weight loss. Will obtain home sleep study Bilateral hip pain 08/14/2023 Assessment & Plan (08/14/2023 7:30 AM WOMEN'S STUDIES PROFESSOR): Will obtain imaging of the hips and [...] Abel blackman reported she was placed in skilled nursing last week for inappropriately using 911. She [...] Silvana's children live with her sister in [place]. Her sister has guardianship. Silvana reported today a stable mood and affect. She requested weekly appointments at this time which seems appropriate. Patient was excited for the option of tele health. Interventions: A person centered approach was used to process current cognitions and affect. SHORT TERM GOALS -Process/address current stressors -Take any medications as prescribed -Attend therapy appointments RADIOLOGY RESIDENT GOALS -Improve coping skills to manage stressors -Decrease symptoms of current mental illness/problem -Improve overall functioning Psychological condition is improving with treatment. Referral to psychological counseling. Psychological condition will be reassessed at the next regular appointment. Encounters Date Type Department Care Team Description 03/28/2025 Patient Outreach [address] [address] Danitza Larkin RN Transitions of Care (Phone call) 03/22/2025 Patient Outreach [address] [address] Danitza Larkin RN Transitions of Care (Unable to contact. ) 03/21/2025 Patient Outreach [address] [address] Danitza Larkin RN Transitions of Care (Unable to contact. ) 03/20/2025 Patient Outreach [address] [address] Danitza Larkin RN Transitions of Care (Unable to contact) 03/17/2025 Patient Outreach [address] [place] [address] Danitza Larkin, RN Transitions of Care (Unable to contact) 03/16/2025 Patient Outreach [address] [place] [address] Danitza Larkin, RN Transitions of Care (Unable to contact) 03/15/2025 Patient Outreach [address] [place] [address] Danitza Larkin, RN Transitions of Care (Unable to contact.) 03/14/2025 Patient Outreach [address] [place] [address] Danitza Larkin RN Transitions of Care (Unable to contact) 03/13/2025 Patient Outreach [address] [place] [address] Danitza Larkin RN Transitions of Care (Unable to contact) 03/10/2025 Patient Outreach [address] [place] [address] Danitza Larkin RN Transitions of Care (Unable to contact.) 03/09/2025 Patient Outreach [address] [place] [address] Danitza Larkin RN Transitions of Care (Unable to contact.) 03/01/2025 Patient Outreach [address] [place] [address] Danitza Larkin RN Transitions of Care (Unable to contact) 02/28/2025 Patient Outreach [address] [place] [address] Danitza Larkin RN Transitions of Care (Unable to contact) 02/21/2025 Patient Outreach [address] [place] [address] Danitza Larkin RN Transitions of Care (Voicemail) 02/20/2025 Patient Outreach [address] [address] Danitza Larkin RN Transitions of Care (Voicemail) 02/17/2025 12:50 PM CDT - 02/17/2025 3:42 PM CDT Emergency [facility] Emergency Department [address] [place] [address] Jose Soliman DO Auditory hallucinations (Primary Dx) Discharge Disposition: Mcfp/Custodial 02/17/2025 Travel 02/14/2025 Patient Outreach [address] [address] Danitza Larkin, RN Transitions of Care (Phone call) 02/14/2025 Patient Outreach [address] [address] Danitza Larkin RN Transitions of Care (Voicemail/) 02/10/2025 Patient Outreach [address] [address] Danitza Larkin RN Transitions of Care (Unable to contact/) 02/07/2025 9:31 PM CDT - 02/08/2025 4:59 PM CDT Emergency [facility] Emergency Department [address] [place] [address] Yuri Guido MD Killen, Michael S, MD Richardson, Kevin R, MD Suicidal ideations (Primary Dx) Discharge Disposition: Home or Self Care 02/07/2025 Travel 02/02/2025 Patient Outreach [address] [address] Danitza Larkin, RN Chart Review 01/25/2025 Orders Only [facility] - Primary Care [address] [place] [address] Beverly De La Vega RN Anemia, unspecified [...] drink = 0.6 oz pur e alcohol) [facility] [employer] Answer Date Recorded In the past 12 months has e [employer], gas, oil, or water [employer] threatened to shut off services in your [...] week 01/07/2024 How often do you attend confucianism or rastafarian serv ices? Never 01/07/2024 Do you belong to any clubs o r organizations such as confucianism groups, unions, fraternal or athletic groups, or [...] Answer Date Recorded PHQ-2 Score 0 08/25/2023 [facility] - [...] place to sleep or slept in a chcf (including now)? No 01/07/2024 Comments Unknown Sex [...] is about the size of your fist. [employer] last reviewed this educational content on 07/24/202219996066-2592 [employer]. All rights reserved. This information is not [...] following code: OR Go to the website: www.Clickst Enter the prescription code: RKX [employer]. All rights reserved. This information is not [...] is homeless and currently in a women's chcf out of [facility] and needs to find a place close to [place]. Procedures Procedure Name Priority Date/Time Associated Diagnosis [...] color Yellow NA 02/17/2025 1:40 PM CDT [facility] Urine appearance Cloudy(A) Clear NA 02/18/20 25 1:40 PM CDT [facility] Urine specific gravity 1.026 1.005 - 1.030 NA 02/17/2025 1:40 PM CDT [facility] Urine pH 5.5 5.0 - 9.0 NA 02/17/2025 1:40 PM CDT [facility] LEUKOCYTES ESTERASE Negative Negative {cells}/uL 02/17/2025 1:40 PM CDT [facility] Urine nitrites Negative Negative NA 1:40 PM CDT [facility] Urine protein Negative <=10 mg/dL 02/17/2025 1:40 PM CDT [facility] Urine glucose Negative Negative mg/dL 02/17/2025 1:40 PM CDT [facility] Urine ketones Negative Negative mg/dL 02/17/2025 1:40 PM CDT [facility] Urine urobilinogen 0.2 0.2 - 1.0 mg/dL 02/17/2025 1:40 PM CDT [facility] Urine bilirubin Negative Negative mg/dL 02/17/2025 1:40 PM CDT [facility] BLOOD Negative Negative mg/dL 02/17/2025 1:40 PM CDT [facility] WBC 3-5 0 - 5 {#}/[HPF] 02/17/2025 1:40 PM CDT [facility] RBC 0-2 0 - 2 {#}/[HPF] 02/17/2025 1:40 PM CDT [facility] Squamous Epithelial >100 None {#}/[LPF] 02/17/2025 1:40 PM CDT [facility] Mucus Trace None NA 02/17/2025 1:40 PM CDT [facility] Urine Spot urine specimen / Unknown 02/17/2025 1:27 PM CDT 02/17/2025 1:32 PM CDT Narrative [facility] - 02/17/2025 1:40 PM CDT If [...] MICROBIOLOGY - GENERAL ORDER SHRUTHI Final Result [facility] [address] [place] [address] * (ABNORMAL) Drugs of Abuse Screen, urine Specimen Source: Urine, Random (02/17/2025 1:27 PM CDT) Only the most recent of2 resultswithin the time period is included. Amphetamines NEGATIVE Negative NA 02/17/2025 2:32 PM CDT [facility] Benzodiazepine POSITIVE(A) Negative NA 02/18/20 2:32 PM CDT [facility] Cannabinoid POSITIVE(A) Negative NA 02/17/2025 2:32 PM CDT [facility] Cocaine POSITIVE(A) Negative NA 02/17/2025 2:32 PM CDT [facility] Opiates NEGATIVE Negative NA 02/17/2025 2:32 PM CDT [facility] PCP NEGATIVE Negative NA 02/17/2025 2:32 PM CDT [facility] Propoxyphene NEGATIVE Negative NA 02/17/2025 2:32 PM CDT [facility] Comment: Amphetamine - 500 ng/mL Cutoff [...] NEGATIVE Negative NA 02/17/2025 2:59 PM CDT [facility] Urine Spot urine specimen / Unknown 02/17/2025 1:27 PM CDT 02/17/2025 1:32 PM CDT us Jose Soliman DO LAB URINE ORDERABLES Final Resul t [facility] [address] [place] [address] * EKG (Adult) (02/17/2025 1:04 PM CDT) Only the most recent of3 resultswithin the time period is included. 02/17/2025 1:04 PM CDT Narrative [facility] - 02/20/2025 1:58 PM CDT [facility] Test Date: 2025-02-17 Pat Name: SILVANA ESPINO Department: [facility] Room: Gender: Female Critical Care Unit Manager: [id number] : 1985 Requested By: [facility] Order Number: [id number] Reading MD: Alec Blood Measurements Intervals [place] Rate: 70 P: 53 NC: 131 QRS: 28 QRSD: 102 T: 8 QT: 396 QTc: 429 Interpretive Statements SINUS RHYTHM Reviewed by Compared to ECG 02/08/2025 12:23:50 No significant changes Electronically Signed On 02-20-2025 13:58:21 CDT by Alec Blood us Jose Soliman DO ECG ORDERABLES Final Result Performing Organization Address City/[facility]/ZIP Co de Phone Number EPIP[facility]ANN * Bill CBC auto diff (02/17/2025 12:59 PM CDT) Only the most recent of2 resultswithin the time period is included. 02/17/2025 12:5 9 PM CDT 02/17/2025 1:09 PM CDT us Triage Protocol Emergency MD LAB BLOOD ORDERABLE S Final Result Performing Organization Address City/[facility]/ZIP Co de Phone Number [facility] [address] [place] [address], [place] * GFR for Adult (02/17/2025 12:59 PM CDT) Only the most recent of2 resultswithin the time period is included. GFR for adult >60 mL/min/1.7 3m2 02/17/2025 1:38 PM CDT [facility] Comment: This estimated glomerular filtration rate [...] MD LAB BLOOD ORDERABLE S Final Result [facility] [address] [place] [address] * SARS-CoV-2 (Novel Coronavirus 2019) PCR (02/17/2025 12:59 PM CDT) Only the most recent of2 resultswithin the time period is included. SARS-Cov-2 by PCR Not Detected Not Detected NA 02/17/2025 1:32 PM CDT [facility] Comment: A Detected result is considered [...] Fact Sheet header using the following websites: https://www.[facility].net/labs/ Test method is RT-PCR manufactured by [employer] and performed on the [employer]ana El[employer] system. This test has been authorized by the FDA under an Emergency Use Authorization (EUA) for use by authorized laboratories. Nasopharynx Nasopharyngeal structure / Unknown 02/17/2025 12:59 PM CDT 02/17/2025 1:07 PM CDT Narrative [facility] - 02/17/2025 1:32 PM CDT If unsure of COVID-19 symptom onset, enter date of lab specimen collection. Jose Soliman DO LAB MICROBIOLOGY - GENERAL ORDER SHRUTHI Final Result Performing Organization Address City/[facility]/ZIP Co de Phone Number [address] [address] * Free T4 STAT (02/17/2025 12:59 PM CDT) Only the most recent of2 resultswithin the time period is included. Free T4 0.87 0.70 - 1.85 ng/dL 02/17/2025 1:[address] [facility] Blood Venous blood / Unknown 02/17/2025 12:59 PM CDT 02/17/2025 1:09 PM CDT Jose Soliman DO LAB BLOOD ORDERABLES Final Resul t Performing Organization Address City/[facility]/ZIP Co de Phone Number [address] [address] * (ABNORMAL) CBC with Differential STAT (02/17/2025 12:59 PM CDT) Only the most recent of2 resultswithin the time period is included. WBC 5.68 4.20 - 10.20 10*3/uL 02/17/2025 1:14 PM CDT [facility] RBC 5.13(H) 3.70 - 5.06 10*6/uL 02/17/2025 1:14 PM CDT [facility] Hemoglobin 12.7 11.8 - 15.8 g/dL 02/17/2025 1:14 PM CDT [facility] Hematocrit 40.6 36.0 - 52.0 % 02/17/2025 1:14 PM CDT [facility] MCV 79.1(L) 83.5 - 100.2 fL 02/17/2025 1:14 PM CDT [facility] MCH 24.8(L) 27.0 - 33.0 pg 02/17/2025 1:14 PM CDT [facility] MCHC 31.3 31.0 - 37.0 g/dL 02/17/2025 1:14 PM CDT [facility] Platelet Count 253 135 - 400 10*3/uL 02/17/2025 1:14 PM CDT [facility] RDW CV 15.1(H) 10.9 - 14.0 % 02/17/2025 1:14 PM CDT [facility] MPV 10.2 6.7 - 12.0 fL 02/17/2025 1:14 PM CDT [facility] Neutrophils 59.40 40.00 - 96.00 % 02/17/2025 1:14 PM CDT [facility] Lymphocytes 32.00 0.00 - 50.00 % 02/17/2025 1:14 PM CDT [facility] Monocytes 3.90 0.00 - 20.00 % 02/17/2025 1:14 PM CDT [facility] Eosinophils 3.90 0.00 - 15.00 % 02/17/2025 1:14 PM CDT [facility] Basophils 0.40 0.00 - 3.00 % 02/17/2025 1:14 PM CDT [facility] Absolute Neutrophils 3.38 2.04 - 6.90 10*3/uL 02/17/2025 1:14 PM CDT [facility] Absolute Lymphocytes 1.82 0.05 - 5.01 10*3/uL 02/17/2025 1:14 PM CDT [facility] Absolute Monocytes 0.22 0.05 - 2.04 10*3/uL 02/17/2025 1:14 PM CDT [facility] Absolute Eosinophils 0.22 0.00 - 0.50 10*3/uL 02/17/2025 1:14 PM CDT [facility] Absolute Basophils 0.02 0.00 - 0.31 10*3/uL 02/17/2025 1:14 PM CDT [facility] Immature Granulocytes 0.40 0.00 - 3.00 % 02/17/2025 1:14 PM CDT [facility] Nucleated RBC 0.00 0.00 - 0.01 /100{WBCs} 02/17/2025 1:14 PM CDT [facility] Blood Venous blood / Unknown 02/17/2025 12:59 PM CDT 02/17/2025 1:09 PM CDT us Jose Soliman LAB BLOOD ORDERABLES Final Resul t Performing Organization Address [facility] Co de Phone Number [address] [address] * hCG, serum, qualitative STAT (02/17/2025 12:59 PM CDT) Only the most recent of2 resultswithin the time period is included. Beta HCG Qualitative Negative NA 02/17/2025 1:32 PM CDT [facility] Comment:Reference Range: Neg ative Blood Venous blood / Unknown 02/17/2025 12:59 PM CDT 02/17/2025 1:09 PM CDT Jose Funez Soliman LAB BLOOD ORDERABLES Final Resul t Performing Organization Address City/[facility] Co de Phone Number [address] [address] * TSH, 3rd generation STAT (02/17/2025 12:59 PM CDT) Only the most recent of2 resultswithin the time period is included. TSH, 3rd Gen 3.030 0.270 - 4.670 u[IU]/mL 02/17/2025 1:44 PM CDT [facility] Blood Venous blood / Unknown 02/17/2025 12:59 PM CDT 02/17/2025 1:09 PM CDT us Jose Soliman DO LAB BLOOD ORDERABLES Final Resul t Performing Organization Address City/[facility] Co de Phone Number [address] [address] * Creatine kinase (CK) STAT (02/17/2025 12:59 PM CDT) Only the most recent of2 resultswithin the time period is included. Creatine Kinase 66 0 - 132 U/L 02/17/2025 1:[address] [facility] Blood Venous blood / Unknown 02/17/2025 12:59 PM CDT 02/17/2025 1:09 PM CDT us Jose Soliman DO LAB BLOOD ORDERABLES Final Resul t Performing Organization Address [facility] Co de Phone Number [address] [address] * Alcohol STAT (02/17/2025 12:59 PM CDT) Only the most recent of2 resultswithin the time period is included. Alcohol <0.010 0.000 - 0.009 g/dL 02/17/2025 1:44 PM CDT [facility] Blood Venous blood / Unknown 02/17/2025 12:59 PM CDT 02/17/2025 1:09 PM CDT us Jose Soliman DO LAB BLOOD ORDERABLES Final Resul t Performing Organization Address City/[facility] Co de Phone Number [address] [address] * Acetaminophen level STAT (02/17/2025 12:59 PM CDT) Only the most recent of2 resultswithin the time period is included. Acetaminophen <5.0 ug/mL 02/17/2025 1:37 PM CDT [facility] Comment: THERAPEUTIC RANGE: <150 UG/ML 4 HOURS AFTER INGESTION < 50 UG/ML 12 HOURS AFTER INGESTION TOXIC: >150 UG/ML 4 HOURS AFTER INGESTION Blood Venous blood / Unknown 02/17/2025 12:59 PM CDT 02/17/2025 1:09 PM CDT Jose Soliman LAB BLOOD ORDERABLES Final Resul t Performing Organization Address [facility] de Phone Number [address] [address] * (ABNORMAL) Salicylate level STAT (02/17/2025 12:59 PM CDT) Only the most recent of2 resultswithin the time period is included. Salicylate <5.0(L) 150.0 - 300.0 mg/L 02/17/2025 1:44 PM CDT [facility] Blood Venous blood / Unknown 02/17/2025 12:59 PM CDT 02/17/2025 1:09 PM CDT Jose Soliman DO LAB BLOOD ORDERABLES Final Resul t Performing Organization Address [facility] de Phone Number [address] [address] * Comprehensive metabolic panel STAT (02/17/2025 12:59 PM CDT) Only the most recent of2 resultswithin the time period is included. Sodium 140 131 - 145 meq/L 02/17/2025 1:38 PM CDT [facility] Potassium 4.3 3.3 - 5.0 meq/L 02/17/2025 1:38 PM CDT [facility] Chloride 108 96 - 111 meq/L 02/17/2025 1:38 PM CDT [facility] CO2 20 20 - 31 meq/L 02/17/2025 1:38 PM CDT [facility] BUN 11 5 - 23 mg/dL 02/17/2025 1:38 PM CDT [facility] Creatinine 0.68 0.60 - 1.40 mg/dL 02/17/2025 1:38 PM CDT [facility] Glucose 91 72 - 113 mg/dL 02/17/2025 1:38 PM CDT [facility] Calcium 8.7 8.2 - 10.2 mg/dL 02/17/2025 1:38 PM CDT [facility] CALCIUM, CORRECTED 8.9 8.2 - 10.2 mg/dL 02/17/2025 1:38 PM CDT [facility] Comment:Calcium corrected fo r Albumin of less than 4.0. Bilirubin Total 0.3 0.1 - 0.9 mg/dL 02/17/2025 1:38 PM CDT [facility] Alkaline Phosphatase 109 38 - 137 U/L 02/17/2025 1:38 PM CDT [facility] ALT (SGPT) 12 0 - 31 U/L 02/17/2025 1:38 PM CDT [facility] AST (SGOT) 16 6 - 32 U/L 02/17/2025 1:38 PM CDT [facility] Total Protein 6.8 6.1 - 8.2 g/dL 02/17/2025 1:38 PM CDT [facility] Albumin 3.8 3.7 - 5.1 g/dL 02/17/2025 1:38 PM CDT [facility] Anion Gap 12 8 - 16 NA 02/17/2025 1:38 PM CDT [facility] Alb/Glob Ratio Calc 1.3 1.1 - 2.2 g/dL 02/17/2025 1:38 PM CDT [facility] BUN/Creatinine Ratio 16 mg/dL 02/17/2025 1:38 PM CDT [facility] Blood Venous blood / Unknown 02/17/2025 12:59 PM CDT 02/17/2025 1:09 PM CDT us Jose Soliman DO LAB BLOOD ORDERABLES Final Resul t [facility] [address] [place] [address] * X-ray Bedside Chest 1 View (02/08/2025 [...] No acute radiographic abnormality. Holland Barton MD [facility] ORD ERABLES Final Result * ThinPrep Diag w/HVP>=30yr (11/18/2023 10:39 AM CDT) ThinPrep Diag w/HVP>=30yr SEE BELOW NA 11/30/2023 2:55 PM CDT [facility] Comment: ThinPrep w/HPV [id number] NOTE Test Result Flag Unit RefValue ThinPrep w/HPV Lp-Hnkg-Viqtkagpym Interpretation Cervical/Endocervical (ThinPrep): Satisfactory for Evaluation Negative [...] Hormone Therapy/Contraceptives None/Not known Test Performed by: [address] [address] Lead Burner Helper: Yuri Domínguez M.D. Ph.D.; CLIA# [id number] Cervix/Vaginal 11/18/2023 10 :39 AM CDT 11/19/2023 11:24 AM CDT Narrative [facility] - 11/30/2023 2:55 PM CDT Pap Smear Source->Cervical/Endocervical Last Menstral Period (LMP) Date->11/06/23 Hormone Therapy/Contraceptives->None Pertinent Clinical History->NA us Kirsty Ricci PA-C LAB PATHOLOGY/CYTOLOGY ORDERA BLES Final Result [facility] [address] [place] [address] from Last 3 Months or Most Recently Relevant to Health Maintenance Additional Health Concerns Active Problems Noted Date Diagnosed Date Diet Management 11/18/2023 Patient is Inactive 11/18/2023 Medication Adherence 11/18/2023 Lack of housing 03/28/2025 [place] [employer] [employer] on file Advance Directives * Code Blue and Intubation (Latest Code Status on File) Date Activated Date Inactivated Comments 01/05/2020 1:56 PM 01/07/2020 12:44 PM Care Teams Service Station Equipment Mechanic Relationship Specialty Start Date End Date Kirsty Ricci PA-C [address] [place] [id number] PCP - General Physician Faucets Assembler 05/05/23
[2025-04-10 09:48] VITALS: BP 112/70; PULSE 97; TEMP 36.4; O2SAT 99; BMI 49.9
[2025-04-10 10:16] LABS: Hematocrit 40.4 % (36-47); Hemoglobin 12.30 g/dL (11.27-16.99); Mean Corpuscular HGB Conc 30.4 g/dL (30-55); Mean Corpuscular Hemoglobin 24.0 pg (27-33); Mean Corpuscular Volume 78.9 fl (85-98); Nucleated Red Blood Cells % 0 %; Platelet Count 223 10^3/cmm (157-399); Red Blood Count 5.12 10^6/uL (3.85-5.65); White Blood Count 4.23 10^3/uL (3.29-11.43)
[2025-04-10 10:36] LABS: Alanine Aminotransferase 14 U/L (0-33); Albumin Level 3.8 g/dL (3.5-5.2); Alkaline Phosphatase 109 U/L (35-105); Anion Gap 12.3 (5-19); Aspartate Amino Transferase 12 U/L (0-32); Blood Urea Nitrogen 21 mg/dL (6-20); Calcium 9.1 mg/dL (8.5-10.5); Carbon Dioxide 21 mmol/L (22-29); Chloride 106 mmol/L (98-107); Creatinine Clr Calc Pharmacy 132.1005; Globulin 3.2 g/dL (1.3-4.6); Glucose 126 mg/dL (65-115); Osmolality Calculated 285 mOsm/kg (285-295); Potassium 4.3 mmol/L (3.5-5.1); Sodium 135 mmol/L (136-145); Total Protein 7.0 g/dL (6.6-8.7)
[2025-04-10 10:41] LABS: HCG, Serum Qual Negative (Negative)
[2025-04-10 11:02] VITALS: BP 147/94; PULSE 93; RESP 16; O2SAT 98
[2025-04-10 11:09] LABS: Glucose Urine UA Negative (Normal); Nitrate Urine Negative (Negative); Specific Gravity, Urine 1.030 (1.005-1.030)
[2025-04-10 11:22] LABS: Add Urine Microscopic? YES
--- NOTE | 2025-04-10 11:28 | ED_ITS ---
HPI - Female Genitourinary 2 General: Chief complaint: Urogenital-Female Stated complaint: uti Time Seen by Provider: 04/10/25 09:34 History of Present Illness: 39-year-old female presents emergency ro om with complaint of dysuria urgency and frequency was seen 8 days ago given Rocephin and discharged home with oral antibiotics states she still having symptoms. Culture reviewed showed mixed luba nothing specific Associated symptoms: Deny abdominal pain Related Data Previous Rx's ?Medication ?Instructions ?Recorded ciprofloxacin HCl 500 mg tablet 500 mg PO BID #14 tabs 04/10/25 (Cipro) Allergies Allergy/AdvReac Type Severity Reaction Status Date / Time aripiprazole (From Abilify) Allergy Unknown Verified 04/10/25 09:52 lurasidone (From Latuda) Allergy Unknown Verified 04/10/25 09:52 Review of Systems 2 Const: Denies: fever(s) or chills Card: Denies: chest pain Resp: Denies: dyspnea GI: Denies: abdominal pain : Reports: dysuria, urinary frequency and urinary urgency Musc: Denies: neck pain or back pain Skin/Breast: Denies: rash Physical Exam 2 Const: COMMON NORMALS: no acute distress GENERAL APPEARANCE: cooperative and comfortable ORIENTATION/CONSCIOUSNESS: Yes awake, Yes oriented to person, Yes oriented to place and Yes oriented to time HENMT: COMMON NORMALS: normocephalic, atraumatic and hearing grossly normal bilaterally HEAD & SCALP: normocephalic and atraumatic Resp: COMMON NORMALS: normal respiratory effort, No retractions, No use of accessory muscles and clear to auscultation bilaterally AUSCULTATION: clear to auscultation bilaterally Cardio: COMMON NORMALS: regular rate, regular rhythm and No murmurs present (Cardio) RATE: regular rate RHYTHM: regular rhythm GI: COMMON NORMALS: Soft to palpation and No hepatosplenomegaly present A USCULTATION: Yes normoactive bowel sounds PALPATION: Yes Soft to palpation, No Tenderness to palpation present (GI), No Guarding due to palpation present (GI) and Yes No hepatosplenomegaly present Extremity: COMMON NORMALS: normal to inspection, capillary refill normal, no clubbing, cyanosis or edema, no calf tenderness and no pedal edema Neuro: SENSORIUM/ORIENTATION: Yes oriented to person, Yes oriented to place and Yes oriented to time Skin: COMMON NORMALS: no rashes or lesions noted GENERAL SKIN EXAM: no rashes or lesions noted Course 2 Vital Signs: Vital signs: Vital Signs Temperature 97.6 F 04/10/25 09:48 Pulse Rate 86 04/10/25 11:39 Respiratory Rate 16 04/10/25 11:02 Blood Pressure 147/94 04/10/25 11:39 Pulse Oximetry 97 04/10/25 11:39 Oxygen Delivery Me thod Room Air 04/10/25 11:02 MDM - Female Medical Decision Making Urine still shows greater than 100 white blood cells per high-power field. Will start her on Cipro. 500 twice daily for 7 days. Follow-up with primary care. Patient denies vaginal discharge or new recent partners. Medical Records I reviewed the patient's medical records. Lab Data I reviewed the patient's lab results. 04/10/25 10:10 04/10/25 10:10 Laboratory Results WBC 4.23 10^3/uL (3.29-11.43) 04/10/25 10:10 RBC 5.12 10^6/uL (3.85-5.65) 04/10/25 10:10 Hgb 12.30 g/dL (11.27-16.99) 04/10/25 10:10 Hct 40.4 % (36-47) 04/10/25 10:10 MCV 78.9 fl (85-98) L 04/10/25 10:10 MCH 24.0 pg (27-33) L 04/10/25 10:10 MCHC 30.4 g/dL (30-55) 04/10/25 10:10 RDW 14.6 % (12.1-15.1) 04/10/25 10:10 Plt Count 223 10^3/cmm (157-399) 04/10/25 10:10 MPV 9.2 fL (7.4-10.4) 04/10/25 10:10 Neut % (Auto) 63.8 % 04/10/25 10:10 Lymph % (Auto) 31.0 % 04/10/25 10:10 [place] % (Auto) 4.5 % 04/10/25 10:10 Eos % (Auto) 0.0 % 04/10/25 10:10 Baso % (Auto) 0.5 % 04/10/25 10:10 Neut # (Auto) 2.70 10^3/uL (1.8-7.7) 04/10/25 10:10 Lymph # (Auto) 1.3 10^3/uL (0.8-4.8) 04/10/25 10:10 [place] # (Auto) 0.2 10^3/uL (0.2-0.9) 04/10/25 10:10 Eos # (Auto) 0.0 10^3/uL (0.0-0.8) 04/10/25 10:10 Baso # (Auto) 0.0 10^3/uL (0.0-0.1) 04/10/25 10:10 Nucleated RBC % (auto) 0 % 04/10/25 10:10 Nucleated RBCs # 0.0 /100WBC 04/10/25 10:10 Sodium 135 mmol/L (136-145) L 04/10/25 10:10 Potassium 4.3 mmol/L (3.5-5.1) 04/10/25 10:10 Chloride 106 mmol/L (98-107) 04/10/25 10:10 Carbon Dioxide 21 mmol/L (22-29) L 04/10/25 10:10 Anion Gap 12.3 (5-19) 04/10/25 10:10 BUN 21 mg/dL (6-20) H 04/10/25 10:10 Creatinine 0.8 mg/dL (0.5-0.9) 04/10/25 10:10 GFR Calculation 79.9 mL/min (90-130) L 04/10/25 10:10 Glucose 126 mg/dL (65-115) H 04/10/25 10:10 Calculated Osmolality 285 mOsm/kg (285-295) 04/10/25 10:10 Calcium 9.1 mg/dL (8.5-10.5) 04/10/25 10:10 Total Bilirubin 0.3 mg/dL (0.15-1.2) 04/10/25 10:10 AST 12 U/L (0-32) 04/10/25 10:10 ALT 14 U/L (0-33) 04/10/25 10:10 Alkaline Phosphatase 109 U/L (35-105) H 04/10/25 10:10 Total Protein 7.0 g/dL (6.6-8.7) 04/10/25 10:10 Albumin 3.8 g/dL (3.5-5.2) 04/10/25 10:10 Globulin 3.2 g/dL (1.3-4.6) 04/10/25 10:10 HCG, Qual Negative (Negative) 04/10/25 10:10 Urine Color Dark yellow (Yellow) A 04/10/25 11:00 Urine Appearance Cloudy (CLEAR) A 04/10/25 11:00 Urine pH 5.0 (5-7) 04/10/25 11:00 Ur Specific [place] 1.030 (1.005-1.030) 04/10/25 11:00 Urine Protein 1+ (Negative) A 04/10/25 11:00 Urine Glucose (UA) Negative (Normal) 04/10/25 11:00 Urine Ketones Trace (Negative) 04/10/25 11:00 Urine Blood Trace (Negative) A 04/10/25 11:00 Urine Nitrate Negative (Negative) 04/10/25 11:00 Urine Bilirubin Negative (Negative) 04/10/25 11:00 Urine Urobilinogen 1.0 mg/dL (Negative) 04/10/25 11:00 Ur Leukocyte Esterase 2+ (Negative) A 04/10/25 11:00 Urine RBC 5-10 /hpf (0-2) H 04/10/25 11:00 Urine WBC >100 /hpf (0-5) H 04/10/25 11:00 Ur Squamous Epith Cells 10-15 /hpf (0-5) H 04/10/25 11:00 Amorphous Sediment 1+ /hpf 04/10/25 11:00 Urine Bacteria 1+ /hpf (NONE) H 04/10/25 11:00 Urine Mucus 1+ /hpf 04/10/25 11:00 No radiology studies performed this visit Discharge Plan Discharge Patient Disposition: Home Clinical Impression: Urinary tract infection Condition: Stable Prescriptions: New ciprofloxacin HCl [Cipro] 500 mg tablet 500 mg PO BID Qty: 14 0RF Discharge Orders: Discharge ED (Routine); Ordered 04/10/25 Ordered By: Edwin Whitaker Discharge Diet: Usual diet Discharge Activity: Increase activity as tolerated Patient Instructions: Opioid Safety, Pain Management, Patient Portal & Zack Instructions Activity Restrictions/Additional Instructions: Thank you for choosing [facility] for your healthcare needs today. It is very important that you follow up as instructed or that you return to the Emergency Department should you have concerns or if your condition changes or worsens in any way. You were seen emergency room with complaint of bladder infection. Your previous culture did not show any specific bacteria. This time we will put you on ciprofloxacin 500 mg 1 pill twice a day. Will have you follow-up with urology global program manager will make arrangements for this. Print Language: Pashto Coding Level of Care Code ED [employer] Installer for Marley Chaudhari
[2025-04-10 11:39] VITALS: BP 147/94; PULSE 86; O2SAT 97
== END 2025-04-10 11:45 | disposition home or self-care (01) ==
PROVIDERS: Physician Assistant; Emergency Provider Family Medicine
DX: N39.0 Urinary tract infection, site not specified (principal)
CPT/HCPCS: 36415; 80053; 81001; 84703; 85025; 87086; 99283

== ENCOUNTER 2025-04-18 18:25 | Inpatient (IN) | payer MEDICAID, SELFPAY ==
[2025-04-18 18:34] VITALS: BP 122/80; PULSE 88; RESP 18; TEMP 36.4; O2SAT 99
--- NOTE | 2025-04-18 18:34 | W.ED.PSYCHS ---
HPI - Psych General: Chief Complaint: Psychiatric Symptoms Stated Complaint: SI, hearing voices History of Present Illness: Patient is a pleasant 39-year-old female with history of depression, presents to the emergency room with 1 week out of her Wellbutrin, hearing voices in the last 24 hours with SI plan and thoughts. She plans on hanging herself. She resides at [facility], and states the voices have been really bad in the last 24 hours. Last psychiatric admission was 30 days ago. Suicide ideation plan and thoughts have been occurring recently today, however the voices were over the last 24 hours. She has been compliant to her other medications. Denies any illegal drug use. 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 Associated symptoms: Reports auditory hallucinations, depression and suicidal ideation; Deny visual hallucinations or homicidal ideation Related Data Home Medications ?Medication ?Instructions ?Recorded ?Confirmed alprazolam 2 mg tablet 2 mg PO BID 04/13/25 04/13/25 atomoxetine 80 mg capsule 80 mg PO DAILY 04/13/25 04/13/25 benztropine 1 mg tablet 1 mg PO DAILY 04/13/25 04/13/25 meloxicam 15 mg tablet 15 mg PO DAILY 04/13/25 04/13/25 mirtazapine 15 mg tablet 15 mg PO DAILY 04/13/25 04/13/25 omeprazole 40 mg capsule,delayed 40 mg PO DAILY 04/13/25 04/13/25 release paliperidone 6 mg tablet,extended 6 mg PO QAM 04/13/25 04/13/25 release 24 hr (Invega) prazosin 2 mg capsule 2 mg PO BID 04/13/25 04/13/25 Previous Rx's ?Medication ?Instructions ?Recorded ciprofloxacin HCl 500 mg tablet 500 mg PO BID #14 tabs 04/10/25 (Cipro) Allergies Allergy/AdvReac Type Severity Reaction Status Date / Time aripiprazole (From Abilify) Allergy Unknown Verified 04/10/25 09:52 lurasidone (From Latuda) Allergy Unknown Verified 04/10/25 09:52 Review of Systems General: Reports: 10 or more systems reviewed and unremarkable except in HPI and below Const: Denies: fever(s) or chills Eyes: Denies: change in vision or blurry vision ENMT: Denies: throat pain or dry mouth Card: Denies: chest pain or palpitations Resp: Denies: dyspnea or non-productive cough GI: Denies: abdominal pain, nausea or vomiting : Denies: flank pain or difficulty voiding Neuro: Denies: headache(s) or numbness in extremities Psych: Reports: anxiety, depression, mood swings, panic attacks, hopelessness, loss of interest, irritability, paranoia, difficulty concentrating, auditory hallucinations and suicidal ideation; Denies: visual hallucinations or homicidal ideation [place]/Lymph: Denies: easy bruising or easy bleeding PFSH ED PFSH: Medical History (Updated 04/18/25 @ 21:35 by LEONARD Pizarro) Psychiatric care Physical Exam Const: COMMON NORMALS: no acute distress, average body habitus and patient oriented x3 HENMT: COMMON NORMALS: normocephalic and atraumatic HEAD & SCALP: normocephalic and atraumatic Lymph: LYMPHATIC: no lymphadenopathy noted Chest: COMMONS NORMALS: normal inspection of the chest and normal palpation of entire chest wall Resp: COMMON NORMALS: normal respiratory effort and clear to auscultation bilaterally AUSCULTATION: clear to auscultation bilaterally Cardio: COMMON NORMALS: regular rate and regular rhythm RATE: regular rate RHYTHM: regular rhythm GI: COMMON NORMALS: Normal to inspection, nondistended, normoactive bowel sounds present, Soft to palpation and non-tender PALPATION: Yes Soft to palpation : COMMON NORMALS: Yes no CVA tenderness BLADDER/KIDNEY EXAM: Yes no CVA tenderness Back/Pelvis: COMMON NORMALS: no CVA tenderness Extremity: COMMON NORMALS: normal to inspection, full ROM and capillary refill normal Neuro: COMMON NORMALS: patient oriented x3 Psych: COMMON NORMALS: mental status grossly normal, cooperative, normal affect, speech normal and activity/motor behavior normal ATTITUDE: Yes agitated ACTIVITY/MOTOR BEHAVIOR: Yes appropriate eye contact SPEECH: Yes normal speech Skin: COMMON NORMALS: no rashes or lesions noted and no wounds GENERAL SKIN EXAM: no rashes or lesions noted Course Consultations: Consultation #1: D/w Dr. Edgar, psych, accepted admission Vital Signs: Vital signs: Vital Signs Temperature 97.6 F 04/18/25 18:34 Pulse Rate 88 04/18/25 18:34 Respiratory Rate 18 04/18/25 18:34 Blood Pressure 122/80 04/18/25 18:34 Pulse Oximetry 99 04/18/25 18:34 Oxygen Delivery Me thod Room Air 04/18/25 18:34 MDM - Psych Medical Decision Making 96-hour hold has been filed and affidavit. Order has been placed. Will refer to psychiatric services after workup has been completed. Medical Records I reviewed the patient's medical records. Lab Data I reviewed the patient's lab results. 04/18/25 19:00 04/18/25 19:00 Laboratory Results WBC 5.12 10^3/uL (3.29-11.43) 04/18/25 19:00 RBC 4.77 10^6/uL (3.85-5.65) 04/18/25 19:00 Hgb 11.50 g/dL (11.27-16.99) 04/18/25 19:00 Hct 37.5 % (36-47) 04/18/25 19:00 MCV 78.6 fl (85-98) L 04/18/25 19:00 MCH 24.1 pg (27-33) L 04/18/25 19:00 MCHC 30.7 g/dL (30-55) 04/18/25 19:00 RDW 14.9 % (12.1-15.1) 04/18/25 19:00 Plt Count 239 10^3/cmm (157-399) 04/18/25 19:00 MPV 9.5 fL (7.4-10.4) 04/18/25 19:00 Neut % (Auto) 54.6 % 04/18/25 19:00 Lymph % (Auto) 38.5 % 04/18/25 19:00 [place] % (Auto) 5.9 % 04/18/25 19:00 Eos % (Auto) 0.4 % 04/18/25 19:00 Baso % (Auto) 0.4 % 04/18/25 19:00 Neut # (Auto) 2.80 10^3/uL (1.8-7.7) 04/18/25 19:00 Lymph # (Auto) 2.0 10^3/uL (0.8-4.8) 04/18/25 19:00 [place] # (Auto) 0.3 10^3/uL (0.2-0.9) 04/18/25 19:00 Eos # (Auto) 0.0 10^3/uL (0.0-0.8) 04/18/25 19:00 Baso # (Auto) 0.0 10^3/uL (0.0-0.1) 04/18/25 19:00 Nucleated RBC % (auto) 0 % 04/18/25 19:00 Nucleated RBCs # 0.0 /100WBC 04/18/25 19:00 Sodium 138 mmol/L (136-145) 04/18/25 19:00 Potassium 4.3 mmol/L (3.5-5.1) 04/18/25 19:00 Chloride 105 mmol/L (98-107) 04/18/25 19:00 Carbon Dioxide 22 mmol/L (22-29) 04/18/25 19:00 Anion Gap 15.3 (5-19) 04/18/25 19:00 BUN 14 mg/dL (6-20) 04/18/25 19:00 Creatinine 0.9 mg/dL (0.5-0.9) 04/18/25 19:00 GFR Calculation 69.7 mL/min (90-130) L 04/18/25 19:00 Glucose 87 mg/dL (65-115) 04/18/25 19:00 Calculated Osmolality 286 mOsm/kg (285-295) 04/18/25 19:00 Calcium 9.2 mg/dL (8.5-10.5) 04/18/25 19:00 Total Bilirubin 0.3 mg/dL (0.15-1.2) 04/18/25 19:00 AST 11 U/L (0-32) 04/18/25 19:00 ALT 10 U/L (0-33) 04/18/25 19:00 Alkaline Phosphatase 107 U/L (35-105) H 04/18/25 19:00 Total Protein 7.0 g/dL (6.6-8.7) 04/18/25 19:00 Albumin 3.9 g/dL (3.5-5.2) 04/18/25 19:00 Globulin 3.1 g/dL (1.3-4.6) 04/18/25 19:00 TSH 4.68 uIU/mL (0.27-4.20) H 04/18/25 19:00 HCG, Qual Negative (Negative) 04/18/25 18:53 Urine Color Yellow (Yellow) 04/18/25 18:53 Urine Appearance Clear (CLEAR) 04/18/25 18:53 Urine pH 5.5 (5-7) 04/18/25 18:53 Ur Specific [place] 1.021 (1.005-1.030) 04/18/25 18:53 Urine Protein Negative (Negative) 04/18/25 18:53 Urine Glucose (UA) Negative (Normal) 04/18/25 18:53 Urine Ketones Trace (Negative) 04/18/25 18:53 Urine Blood Negative (Negative) 04/18/25 18:53 Urine Nitrate Negative (Negative) 04/18/25 18:53 Urine Bilirubin Negative (Negative) 04/18/25 18:53 Urine Urobilinogen 1.0 mg/dL (Negative) 04/18/25 18:53 Ur Leukocyte Esterase 1+ (Negative) A 04/18/25 18:53 Urine RBC 0-2 /hpf (0-2) 04/18/25 18:53 Urine WBC 11-20 /hpf (0-5) H 04/18/25 18:53 Ur Squamous Epith Cells 0-5 /hpf (0-5) 04/18/25 18:53 Amorphous Sediment Not Reportable 04/18/25 18:53 Urine Bacteria None seen /hpf (NONE) 04/18/25 18:53 Hyaline Casts 0.40 /lpf 04/18/25 18:53 Salicylates < 0.3 mg/dL (3-10) L 04/18/25 19:00 Urine Opiates Screen Negative ng/mL (Negative) 04/18/25 18:53 Acetaminophen < 5.0 ug/mL (10-30) L 04/18/25 19:00 Ur Barbiturates Screen Negative ng/mL (Negative) 04/18/25 18:53 Ur Phencyclidine Scrn Negative ng/mL (Negative) 04/18/25 18:53 Ur Amphetamines Screen Negative ng/mL (Negative) 04/18/25 18:53 U Benzodiazepines Scrn Positive ng/mL (Negative) H 04/18/25 18:53 Urine Cocaine Screen Negative ng/mL (Negative) 04/18/25 18:53 U Marijuana (THC) Screen Negative ng/mL (Negative) 04/18/25 18:53 Ethyl Alcohol < 10 mg/dL (0-10) 04/18/25 19:00 No radiology studies performed this visit Discharge Plan Discharge Patient Disposition: Xfer Psychiatric Hosp Clinical Impression: Suicidal ideation, Acute psychosis Condition: Stable Discharge Diet: Usual diet Discharge Activity: Resume usual activity Print Language: Slovenian Coding Level of Care Code ED Help Desk Consultant for Marley Chaudhari
--- OUTSIDE RECORDS SUMMARY | 2025-04-18 18:37 | XMS_ITS | Clinical Summary ---
Author Organization [facility] Address [address] [facility] Attn: Epic Prelude ADT GOVIND EHRNANDEZTED [id number] Care Team Providers Care Radio Mechanic Name Role Phone Unavailable Primary Care Provider Unavailabl e Allergies Active Allergy Reactions Criticality Noted Date Comments Aripiprazole Unknown 09/18/2012 Lurasidone Other (See Comments) 01/01/2017 Insomnia Unclassified Drug Other (See Comments) 01/02/20 17 Insomnia. Pt states she does not know the name for sure it is an antidepressant that starts with tri and is not sure when I ask if it is tricyclics Medications QUEtiapine (SEROquel) 100 mg tablet Take 100 mg by mouth daily. 7 Active fluticasone propionate (FLONASE) 50 mcg/spray Viola, Suspension nasal inhaler Administer 2 Sprays in each nostril daily. 16 Gram None 7 Active prazosin (MINIPRESS) 1 mg capsule Take 1 mg by mouth daily. 7 Active loratadine (CLARITIN) 10 mg tablet Take 1 Tablet (10 mg) by mouth daily Start taking this after you complete claritin-D. 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) Discharge Disposition: [facility] 02/25/2025 Lab Requisition [facility] Laboratory Services [address] [place] [address] Jose Manuel Whitney MD 02/22/2025 8:10 PM CDT - 02/23/2025 7:45 AM CDT Emergency [facility] Emergency Department [address] [facility] [place] [address] Tripp Terrazas MD Suicidal ideations (Primary Dx) Discharge Disposition: [facility] 02/22/2025 Travel from Last 3 Months Social History Tobacco Use Types Packs/Day Years Used Date Smoking Tobacco: Never Smokeless Tobacco: Current Alcohol Use Standard Drinks/Week Comments No 0 (1 standard drink = 0.6 oz pur e alcohol) Feeling Safe Answer Date Recorded Are you in a relationship wi th someone who hurts you emotionally and/or physically? 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 Gender Identity Not on file Sexual Orientation Not on file Last Filed Vital Signs Vital Sign Reading Time Taken Comments Blood Pressure 109/67 03/02/2025 7:42 PM CDT Pulse 75 03/02/2025 7:42 PM CDT Temperature 36.6 C (97.9 F) 03/02/2025 7:42 PM CDT Respiratory Rate 15 03/02/2025 7:42 PM CDT Oxygen Saturation 95% 03/02/2025 7:42 PM CDT Inhaled Oxygen Concentration - - Weight 132.5 kg (292 lb) 03/02/2025 12:44 PM CDT Height 165.1 cm (5' 5 ) 03/02/2025 12:44 PM CDT Body Mass Index 48.59 03/02/2025 12:44 PM CDT Plan of Treatment Health Maintenance Due Date Last Done Comments HEPATITIS B VACCINES (1 of 3 - 19+ 3-dose series) 2004 HPV/Cotest (21-29) 2006 HPV VACCINES (1 - 3-dose SCD M series) 2012 CERVICAL CANCER SCREENING 2015 HPV/Cotest (30-65) 2015 PAP SMEAR 2015 INFLUENZA VACCINE (#1) 2025 , 05/19/2024, 10/12/2023, Additional history exists Pre-Diabetes and Diabetes Screening 03/03/2028 03/03/2025, 02/25/2025, 02/25/2025 DTAP/TDAP/TD VACCINES (3 - T d or Tdap) 05/19/2034 05/19/2024, 10/15/1999 COVID-19 Vaccine Completed 05/19/2024, 01/21/2023 Procedures Procedure Name Priority Date/Time Associated Diagnosis Comments HEMOGLOBIN A1C Routine 03/03/2025 5:40 AM CDT LIPID PANEL Routine 03/03/2025 5:40 AM CDT ETHANOL LEVEL Stat 03/02/2025 2:22 PM CDT SALICYLATE LEVEL Stat 03/02/2025 2:22 PM CDT ACETAMINOPHEN LEVEL Stat 03/02/2025 2 :22 PM CDT TSH REFLEXIVE Stat 03/02/2025 2:22 PM CDT COMPREHENSIVE METABOLIC PANEL Stat 03/02/2025 2:22 PM CDT CBC WITH DIFFERENTIAL Stat 03/02/2025 2:22 PM CDT EXTRA TUBE (URINE ESPINO) Stat 03/02/2025 2:00 PM CDT DRUG SCREEN, URINE Stat 03/02/2025 2: 00 PM CDT URINALYSIS W/REFLEX MICROSCOPIC Stat 03/02/2025 2:00 PM CDT URINE CULTURE Stat 03/02/2025 2:00 PM CDT 2019 NOVEL CORONAVIRUS (COVID-19) PCR DETECTION Stat 03/02/2025 1:59 PM CDT EKG 12-LEAD Stat 03/02/2025 1:57 PM CDT HEMOGLOBIN A1C Routine 02/25/2025 6:30 AM CDT GLUCOSE FASTING Routine 02/25/2025 6:30 AM CDT LIPID PANEL Routine 02/25/2025 6:30 AM CDT EKG 12-LEAD Stat 02/22/2025 8:59 PM CDT T4 FREE Stat 02/22/2025 8:38 PM CDT EXTRA TUBE (URINE ESPINO) Stat 02/22/2025 8:38 PM CDT DRUG SCREEN, URINE Stat 02/22/2025 8: 38 PM CDT URINALYSIS W/REFLEX MICROSCOPIC Stat 02/22/2025 8:38 PM CDT HCG QUALITATIVE, URINE Stat 8:38 PM CDT ETHANOL LEVEL Stat 02/22/2025 8:38 PM CDT SALICYLATE LEVEL Stat 02/22/2025 8:38 PM CDT ACETAMINOPHEN LEVEL Stat 02/22/2025 8 :38 PM CDT TSH REFLEXIVE Stat 02/22/2025 8:38 PM CDT COMPREHENSIVE METABOLIC PANEL Stat 02/22/2025 8:38 PM CDT CBC WITH DIFFERENTIAL Stat 02/22/2025 8:38 PM CDT from Last 3 Months Results * HEMOGLOBIN A1C (03/03/2025 5:40 AM CDT) Only the most recent of2 resultswithin the time period is included. HEMOGLOBIN A1C 5.4 <=5.6 % 03/03/2025 7:25 AM CDT [facility] EST. AVG GLUCOSE, A1C 108 mg/dL 03/03/2025 7:25 AM CDT [facility] Blood 03/03/2025 5:40 AM CDT 03/03/2025 7:02 AM CDT Narrative [facility] - 03/03/2025 7:25 AM CDT HGB A1C INTERPRETATION NORMAL: <5.7% PRE-DIABETES: 5.7 - 6.4% DIABETES: 6.5% OR GREATER us Jose Manuel Whitney MD CHEMISTRY ORDERABLES Final Res ult [facility] [id number] [address] [place] [address] * (ABNORMAL) LIPID PANEL (03/03/2025 5:40 AM CDT) Only the most recent of2 resultswithin the time period is included. CHOLESTEROL 122 <200 mg/dL 03/03/2025 7:28 AM CDT [facility] TRIGLYCERIDE 57 <150 mg/dL 03/03/2025 7:28 AM T [facility] HDL 36(L) 40 - 59 mg/dL 03/03/2025 7:28 AM T [facility] LDL CALCULATED 75 <100 mg/dL 03/03/2025 7:28 AM T [facility] NON-HDL CHOLESTEROL 86 <130 mg/dL 03/03/2025 7:28 AM T [facility] Blood Collection / Unknown 03/03/2025 5:40 AM CDT 03/03/2025 7:02 AM CDT Narrative [facility] - 03/03/2025 7:28 AM CDT TOTAL CHOLESTEROL mg/dL Desirable <200 Borderline high 200-239 High >=240 TRIGLYCERIDES mg/dL Normal <150 Borderline high 150-199 High 200-499 Very high >=500 HDL CHOLESTEROL mg/dL Low <40 Normal 40-59 Desirable >=60 NON HDL CHOLESTEROL mg/dL Optimal <130 Near Optimal 130-159 Borderline High 160-189 Very High >=190 CALCULATED LDL mg/dL LDL <70, OPTIMAL if have Atherosclerotic cardiovascular disease (ASCVD) or intermediate or higher (>7.5%) 10 year risk of ASCVD including most adults with diabetes. LDL <100, Optimal in adult patients with low (<7.5%) 10 year ASCVD risk LDL 100-160, Suboptimal LDL >160, High LDL >190, Very high LDL calculated using the Friedewald equation. ATPIII Guidelines Reference Ranges for Lipid Panels (NCEP/AMA) . us Jose Manuel Whitney MD CHEMISTRY ORDERABLES Final Res ult Performing Organization Address City/[facility]/ZIP Co de Phone Number [facility] [id number] [address] [place], [place] [id number] * TSH REFLEXIVE (03/02/2025 2:22 PM CDT) Only the most recent of2 resultswithin the time period is included. TSH 2.05 0.27 - 4.20 uIU/mL 03/02/2025 2:59 PM CDT [facility] Blood Venipuncture / Unknown 03/02/2025 2:22 PM CDT 03/02/2025 2:24 PM CDT us Santiago Gauthier DO CHEMISTRY ORDERABLES Final Result Performing Organization Address [facility]/ZIP Co de Phone Number [facility] [id number] [address] [place] [address] [phone] * (ABNORMAL) CBC WITH DIFFERENTIAL (03/02/2025 2:22 PM CDT) Only the most recent of2 resultswithin the time period is included. [facility] [address] WBC 5.1 3.5 - 11.0 K/uL 03/02/2025 2:27 PM [facility] RBC 4.75 3.80 - 5.00 M/uL 03/02/2025 2:27 PM [facility] HEMOGLOBIN 11.9 11.7 - 15.7 g/dL 03/02/2025 2:27 PM [facility] HEMATOCRIT 36.4 35.0 - 47.0 % 03/02/2025 2:27 PM [facility] MCV 76.6(L) 80.8 - 100.0 fL 03/02/2025 2:27 PM [facility] MCH 25.1(L) 26.4 - 34.0 pg 03/02/2025 2:27 PM [facility] MCHC 32.7 31.4 - 36.3 g/dL 03/02/2025 2:27 PM [facility] RDW 15.9(H) 11.0 - 15.0 % 03/02/2025 2:27 PM [facility] PLATELETS 219 150 - 450 K/uL 03/02/2025 2:27 PM [facility] MPV 8.1 7.5 - 11.2 fL 03/02/2025 2:27 PM [facility] NEUTROPHILS 53 50 - 75 % 03/02/2025 2:27 PM [facility] LYMPHOCYTES 37 19 - 48 % 03/02/2025 2:27 PM [facility] MONOCYTES 5 0 - 10 % 03/02/2025 2:27 PM [facility] EOSINOPHILS 4 0 - 6 % 03/02/2025 2:27 PM [facility] BASOPHILS 1 0 - 2 % 03/02/2025 2:27 PM [facility] NEUTROPHIL ABSOLUTE 2.71 >=0.50 K/uL 03/02/2025 2:27 PM [facility] LYMPHOCYTE ABSOLUTE 1.89 K/uL 03/02/2025 2:27 PM CDT [facility] MONOCYTE ABSOLUTE 0.27 K/uL 03/02/2025 2:27 PM CDT [facility] EOSINOPHIL ABSOLUTE 0.23 K/uL 03/02/2025 2:27 PM CDT [facility] BASOPHILS ABSOLUTE 0.05 K/uL 03/02/2025 2:27 PM CDT [facility] Blood Venipuncture / Unknown 03/02/2025 2:22 PM CDT 03/02/2025 2:24 PM CDT Santiago Gauthier DO HEMATOLOGY ORDERABLES Yolanda l Result Performing Organization Address City/[facility]/ZIP Co de Phone Number [facility] [id number] [address] [place] [phone] * ETHANOL LEVEL (03/02/2025 2:22 PM CDT) Only the most recent of2 resultswithin the time period is included. ETHANOL <10.00 <=11.00 mg/dL 03/02/2025 2:59 PM CDT [facility] ETHANOL % <0.01 %w/v 03/02/2025 2:59 PM CDT [facility] Blood Venipuncture / Unknown 03/02/2025 2:22 PM CDT 03/02/2025 2:24 PM CDT Santiago Gauthier DO CHEMISTRY ORDERABLES Final Result Performing Organization Address City/[facility]/ZIP Co de Phone Number [facility] [id number] [address] [place] [address] [phone] * ACETAMINOPHEN LEVEL (03/02/2025 2:22 PM CDT) Only the most recent of2 resultswithin the time period is included. ACETAMINOPHEN LEVEL <3 0 - 20 ug/mL 03/02/2025 2:59 PM CDT [facility] Blood Venipuncture / Unknown 03/02/2025 2:22 PM CDT 03/02/2025 2:24 PM CDT [facility] - 03/02/2025 2:59 PM CDT Therapeutic Range: 10-30 ug/mL The following Acetaminophen levels are associated with possible toxicity: 4 hours after dose >200 ug/mL 8 hours after dose >100 ug/mL 12 hours after dose >50 ug/mL [facility] CHEMISTRY ORDERABLES Final Result Performing Organization Address [facility] Co de Phone Number [facility] [id number] [address] [place] [address] [phone] * SALICYLATE LEVEL (03/02/2025 2:22 PM CDT) Only the most recent of2 resultswithin the time period is included. SALICYLATE LEVEL <5.0 0.0 - 30.0 mg/dL 03/02/2025 2:59 PM CDT [facility] Blood Venipuncture / Unknown 03/02/2025 2:22 PM CDT 03/02/2025 2:24 PM CDT [facility] - 03/02/2025 2:59 PM CDT Negative <3.0 mg/dL Therapeutic 3.0 - 10 mg/dL Toxicity >30 mg/dl Lethal >60 mg/dL Therapeutic Range: 15-30 mg/dL Toxic Levels: >30 mg/dL Lethal: >70 mg/dL [facility] CHEMISTRY ORDERABLES Final Result Performing Organization Address [facility] Co de Phone Number [facility] [id number] [address] [place] [address] [phone] * (ABNORMAL) COMPREHENSIVE METABOLIC PANEL (03/02/2025 2:22 PM CDT) Only the most recent of2 resultswithin the time period is included. SODIUM 138 136 - 145 mmol/L 03/02/2025 2:59 PM [facility] POTASSIUM 4.5 3.2 - 4.9 mmol/L 03/02/2025 2:59 PM [facility] CHLORIDE 111 98 - 111 mmol/L 03/02/2025 2:59 PM [facility] CO2 26 22 - 29 mmol/L 03/02/2025 2:59 PM [facility] CALCIUM 8.3(L) 8.4 - 10.5 mg/dL 03/02/2025 2:59 PM [facility] BUN 10 6 - 24 mg/dL 03/02/2025 2:59 PM [facility] CREATININE 0.71 0.50 - 1.20 mg/dL 03/02/2025 2:59 PM [facility] GLUCOSE 86 70 - 115 mg/dL 03/02/2025 2:59 PM [facility] TOTAL PROTEIN 6.3 6.0 - 8.4 g/dL 03/02/2025 2:59 PM [facility] ALBUMIN 3.5 3.5 - 5.2 g/dL 03/02/2025 2:59 PM [facility] BILIRUBIN TOTAL 0.1(L) 0.3 - 1.2 mg/dL 03/02/2025 2:59 PM [facility] ALKALINE PHOSPHATASE 98 25 - 117 U/L 03/02/2025 2:59 PM [facility] AST 14 <=33 U/L 03/02/2025 2:59 PM [facility] ALT 11 <=55 U/L 03/02/2025 2:59 PM [facility] GFR >60 >=60 mL/min/1.7 3 sq meter 03/02/2025 2:59 PM [facility] Comment:eGFR calculated with 2020 CKD-EPI equation. Vegetarian diet, extremely high or low muscle mass, and may affect results. Cystatin C with Glomerular Filtration Rate is a suitable alternative for these patients. ANION GAP 1(L) 7 - 16 mmol/L 03/02/2025 2:59 PM CDT [facility] Blood Venipuncture / Unknown 03/02/2025 2:22 PM CDT 03/02/2025 2:24 PM CDT Santiago Gauthier DO CHEMISTRY ORDERABLES Final Result Performing Organization Address [facility]/ZIP Co de Phone Number [facility] [id number] [address] [place] [address] [phone] * EXTRA TUBE (URINE ESPINO) (03/02/2025 2:00 PM CDT) Only the most recent of2 resultswithin the time period is included. Urine URINE SPECIMEN OBTAINED BY CLEAN CATCH PROCEDURE / Unknown Collection / Unknown 03/02/2025 2:00 PM CDT 03/02/2025 2:06 PM CDT Santiago Gauthier DO URINE ORDERABLES Final Res ult Performing Organization Address City/[facility]/ZIP Co de Phone Number [facility] [id number] [address] [place] [address] [phone] * (ABNORMAL) DRUG SCREEN, URINE (03/02/2025 2:00 PM CDT) Only the most recent of2 resultswithin the time period is included. AMPHETAMINE QUAL, URINE Presumptive Positive(A) Negative 03/02/2025 2:27 PM CDT [facility] BARBITURATE QUAL, URINE Negative Negative 03/02/2025 2:27 PM CDT [facility] BENZODIAZEPINE QUAL, URINE Presumptive Positive(A) Negative 03/02/2025 2:27 PM CDT [facility] COCAINE QUAL URINE Negative Negative 03/02/2025 2:27 PM CDT [facility] OPIATE QUAL, URINE Negative Negative 03/02/2025 2:27 PM CDT [facility] CANNABINOIDS QUAL, URINE Negative Negative 03/02/2025 2:27 PM CDT [facility] PCP QUAL, URINE Negative Negative 2:27 PM CDT [facility] METHADONE QUAL, URINE Negative Negative 03/02/2025 2:27 PM T [facility] CREATININE, URINE 168.1 16.0 - 327.0 mg/dL 03/02/2025 2:27 PM T [facility] Comment:Reference Range vari es with fluid intake and diet. Urine URINE SPECIMEN OBTAINED BY CLEAN CATCH PROCEDURE / Unknown Collection / Unknown 03/02/2025 2:00 PM CDT 03/02/2025 2:06 PM CDT us Santiago Gauthier DO URINE ORDERABLES Final Res ult [facility] [id number] [address] [place] [phone] * (ABNORMAL) URINALYSIS WITH REFLEX MICROSCOPIC (03/02/2025 2:00 PM CDT) Only the most recent of2 resultswithin the time period is included. COLOR UA Yellow Pale to Dark Yellow 03/02/2025 2:17 PM [facility] CLARITY UA Turbid(A) Clear 03/02/2025 2:17 PM [facility] SPECIFIC GRAVITY UA 1.026 1.005 - 1.030 03/02/2025 2:17 PM [facility] PH UA 6.0 5.0 - 9.0 03/02/2025 2:17 PM [facility] LEUKOCYTE ESTERASE UA 1+(A) Negative 03/02/2025 2:17 PM [facility] NITRITE UA Negative Negative 03/02/2025 2:17 PM [facility] PROTEIN UA Negative Negative 03/02/2025 2:17 PM [facility] GLUCOSE UA Negative Negative 03/02/2025 2:17 PM [facility] KETONES UA Negative Negative 03/02/2025 2:17 PM [facility] UROBILINOGEN UA 2.0(A) Normal mg/dL 025 2:17 PM CDT [facility] BILIRUBIN UA Negative Negative 03/02/2025 2:17 PM CDT [facility] BLOOD UA 3+(A) Negative 03/02/2025 2:17 PM CDT [facility] WBC UA 11-25(A) 0 - 2 /hpf 03/02/2025 2:17 PM CDT [facility] RBC UA 3-5(A) 0 - 2 /hpf 03/02/2025 2:17 PM CDT [facility] BACTERIA UA Negative Negative /hpf 03/02/2025 2:17 PM CDT [facility] EPITHELIAL CELLS, URINE >25(A) 0 - 5 /hpf 03/02/2025 2:17 PM CDT [facility] Urine URINE SPECIMEN OBTAINED BY CLEAN CATCH PROCEDURE / Unknown Collection / Unknown 03/02/2025 2:00 PM CDT 03/02/2025 2:06 PM CDT Santiago Gauthier DO URINE ORDERABLES Final Res ult [facility] [id number] [address] [place] [address] [phone] * URINE CULTURE (03/02/2025 2:00 PM CDT) CULTURE Polymicrobial growth consistent with normal urethral luba and/or colonizing bacteria 03/04/2025 7:19 AM CDT [facility] Urine URINE SPECIMEN OBTAINED BY CLEAN CATCH PROCEDURE / Unknown Collection / Unknown 03/02/2025 2:00 PM CDT 03/02/2025 2:06 PM CDT Santiago Gauthier DO MICROBIOLOGY - GENERAL ORD ERABLES Final Result Performing Organization Address City/[facility]/ZIP Co de Phone Number [facility] [id number] [address] [place] [address] [phone] * 2019 NOVEL CORONAVIRUS (COVID-19) PCR DETECTION (03/02/2025 1:59 PM CDT) COVID-19 PCR NOT DETECTED Not Detected 03/02/20 2:23 PM CDT [facility] Upper Respiratory ENTIRE NASOPHARYNX / Unknown Collection / Unknown 03/02/2025 1:59 PM CDT 03/02/2025 2:06 PM CDT Narrative [facility] - 03/02/2025 2:23 PM CDT This test has been authorized by the FDA under an Emergency Use Authorization for use by authorized laboratories. This test has been validated in accordance with the FDA's guidance regarding Coronavirus Disease-2019 testing. Optimum specimen types and timing for peak viral levels during infection have not been determined. A negative RT-PCR result does not rule out infection with the 2019-Novel Coronavirus. Santiago Gauthier DO MICROBIOLOGY - GENERAL ORD ERABLES Final Result [facility] [id number] [address] [place] [phone] * EKG 12-LEAD (03/02/2025 1:57 PM CDT) Only the most recent of2 resultswithin the time period is included. 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1985 Requested By: SANTIAGO SHAFER Order Number: [id number] Reading MD: Zain Greene Measurements Intervals [place] Rate: 70 P: 72 DC: 130 QRS: 46 QRSD: 88 T: 17 QT: 412 QTc: 444 Interpretive Statements Normal sinus rhythm Electronically Signed On 03-05-2025 8:37:57 CDT by Zain Greene Procedure Note Zain Greene MD - 03/05/[address] [address] Test Date: 2025-03-02 Pat Name: SILVANA ESPINO Department: 2 Room: CHECKOUT 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1985 Requested By: SANTIAGO SHAFER Order Number: [id number] Reading MD: Zain Greene Measurements Intervals [place] Rate: 70 P: 72 DC: 130 QRS: 46 QRSD: 88 T: 17 QT: 412 QTc: 444 Interpretive Statements Normal sinus rhythm Electronically Signed On 03-05-2025 8:37:57 CDT by Zain Greene us Santiago Gauthier DO ECG ORDERABLES Final Resu lt Performing Organization Address City/[facility]/ZIP Co de Phone Number INTERFACE SYSTEM Refer to clinic/hospital department * GLUCOSE FASTING (02/25/2025 6:30 AM CDT) [facility] [address] GLUCOSE-FASTIN G 86 70 - 115 mg/dL 02/25/2025 10:00 AM CDT [facility] Blood Collection / Unknown 02/25/2025 6:30 AM CDT 02/25/2025 9:12 AM CDT us Jose Manuel Whitney MD CHEMISTRY ORDERABLES Final Res ult Performing Organization Address City/[facility]/ZIP Co de Phone Number [facility] [id number] [address] [place] [address] [phone] * HCG QUALITATIVE, URINE (02/22/2025 8:38 PM CDT) [facility] [address] HCG QUAL URINE Negative Negative 02/22/2025 10:07 PM CDT [facility] COLOR UA Yellow Pale to Dark Yellow 02/22/2025 10:07 PM CDT [facility] CLARITY UA Clear Clear 02/22/2025 10:07 PM CDT [facility] [place] [facility] Urine URINE SPECIMEN OBTAINED BY CLEAN CATCH PROCEDURE / Unknown Collection / Unknown 02/22/2025 8:38 PM CDT 02/22/2025 8:41 PM CDT Tripp Terrazas MD URINE ORDERABLES Final R esult Performing Organization Address [facility]/ZIP Co de Phone Number [facility] [id number] [address] [place] [address] [phone] * T4 FREE (02/22/2025 8:38 PM CDT) T4 FREE 0.93 0.70 - 1.48 ng/dL 02/22/2025 9:50 PM CDT [facility] Blood Venipuncture / Unknown 02/22/2025 8:38 PM CDT 02/22/2025 8:41 PM CDT Tripp Terrazas MD CHEMISTRY ORDERABLES Fin al Result Performing Organization Address [facility]/ZIP Co de Phone Number [facility] [id number] [address] [place] [address] [phone] from Last 3 Months Insurance [place] [id number] MEDICAID [id number] [place]
--- OUTSIDE RECORDS SUMMARY | 2025-04-18 18:37 | XMS_ITS | Encounter Summary ---
Author Organization [facility] Address [address] [place] [address] Care Team Providers Care Cath Lab Technologist Name Role Phone Kirsty Ricci PA-C Primary Care Provider [phone] Reason for Visit * Reason Onset Date Comments Med Refill 12/07/2023 Encounter Details Date Type Department Care Team (Late st Contact Info) Description 12/07/2023 Refill [facility] - Primary Care [address] [place] [address] Kirsty Ricci PA-C [address] [place] [address]. [place] [address] Social History Tobacco Use Types [...] is about the size of your fist. [facility] last reviewed this educational content on 07/24/202219990876-0507 The Nexthink. All rights reserved. This information is not [...] following code: OR Go to the website: www.Neighborhoods Enter the prescription code: RKX The Nex[employer]. All rights reserved. This information is not [...] documented as of this encounter Care Teams Cath Lab Technologist Relationship Specialty Start Date End Date Kirsty Ricci PA-C [address] [place] [address] PCP - General Physician Resource Conservationist 05/05/23 documented as of this encounter
--- OUTSIDE RECORDS SUMMARY | 2025-04-18 18:37 | XMS_ITS | Encounter Summary ---
Author Organization [facility] Address [address] [place] [address] Care Team Providers Care Stewardesses Teacher Name Role Phone Kirsty Ricci PA-C Primary Care Provider [phone] Reason for Visit * Reason Onset Date Comments Med Refill 11/19/2023 Encounter Details Date Type Department Care Team (Late st Contact Info) Description 11/19/2023 Refill [facility] [place] - Primary Care [address] [place] [address] Kirsty Ricci PA-C [address] [place] [address]. [place] [address] Anemia, unspecified type Social History [...] is about the size of your fist. [employer] last reviewed this educational content on 07/24/202219990224-5128 The Privacy Analytics. All rights reserved. This information is not [...] following code: OR Go to the website: www.PowerReviews Enter the prescription code: TONNYX The Privacy Analytics. All rights reserved. This information is not [...] documented as of this encounter Care Teams Stewardesses Teacher Relationship Specialty Start Date End Date Kirsty Ricci PA-C [address] [place] [address] PCP - General Physician Trench Pipe Layer Helper 05/05/23 documented as of this encounter
--- OUTSIDE RECORDS SUMMARY | 2025-04-18 18:37 | XMS_ITS | Encounter Summary ---
Author Organization [facility] Address [address] [place] [address] Care Team Providers Care Licensed Massage Practitioner Name Role Phone Kirsty Ricci PA-C Primary Care Provider [phone] Reason for Visit * Reason Comments Med Refill Encounter Details Date Type Department Care Team (Late st Contact Info) Description 05/27/2024 Refill [facility] - Primary Care [address] [place] [address] Kirsty Ricci PA-C [address] [facility] [place] [address] Acute cystitis with hematuria Social History Tobacco Use Types Packs/Day Years Used Date Smoking Tobacco: Never Smokeless Tobacco: Former Chew Alcohol Use Standard Drinks/Week Comments No 0 (1 standard drink = 0.6 oz pur e alcohol) [facility] Utilities Answer Date Recorded In the past 12 months has [employer] gas, oil, or water [employer] threatened to shut off services in your [...] week 01/07/2024 How often do you attend uatsdin or rastafarian serv ices? Never 01/07/2024 Do you belong to any clubs o r organizations such as uatsdin groups, unions, fraternal or athletic groups, or [...] Answer Date Recorded PHQ-2 Score 0 08/25/2023 [facility] - Occupational Stress [...] is about the size of your fist. [facility] reviewed this educational content on 07/24/202219990806-5367 The Mov[employer]. All rights reserved. This information is not [...] following code: OR Go to the website: www.Havelide Systems Enter the prescription code: RKX The [employer]. All rights reserved. This information is not [...] documented as of this encounter Care Teams Licensed Massage Practitioner Relationship Specialty Start Date End Date Kirsty Ricci PA-C [address] [place] [address] PCP - General Physician Business Information Consultant 05/05/23 documented as of this encounter
--- OUTSIDE RECORDS SUMMARY | 2025-04-18 18:37 | XMS_ITS | Encounter Summary ---
Author Organization [facility] Address [address] [place] [address] Care Team Providers Care Bowling Or Skating Front Desk Clerk Name Role Phone Kirsty Ricci PA-C Primary Care Provider [phone] Reason for Visit * Reason Comments Med Refill Encounter Details Date Type Department Care Team (Late st Contact Info) Description 03/16/2024 Refill [facility] - Primary Care [address] [place] [address] Kirsty Ricci PA-C [address] [facility] [place] [address] UTI symptoms Social History Tobacco Use Types Packs/Day Years Used Date Smoking Tobacco: Never Smokeless Tobacco: Former Chew Alcohol Use Standard Drinks/Week Comments No 0 (1 standard drink = 0.6 oz pur e alcohol) [facility] Utilities Answer Date Recorded In the past 12 months has [employer], oil, or water [employer] threatened to shut off services in your [...] week 01/07/2024 How often do you attend samaritan or yazdanism serv ices? Never 01/07/2024 Do you belong to any clubs o r organizations such as samaritan groups, unions, fraternal or athletic groups, or [...] Answer Date Recorded PHQ-2 Score 0 08/25/2023 [facility] - Occupational [...] place to sleep or slept in a jail (including now)? No 01/07/2024 Comments Unknown Sex [...] is about the size of your fist. [employer] last reviewed this educational content on 07/24/202219995823-5441 The Sedicidodici. All rights reserved. This information is not [...] following code: OR Go to the website: www.Alex and Ani Enter the prescription code: RKX The [employer]ic[employer]. All rights reserved. This information is not [...] documented as of this encounter Care Teams Bowling Or Skating Front Desk Clerk Relationship Specialty Start Date End Date Kirsty Ricci, PARowanC [address] [place] [address] PCP - General Physician Craft Center Director 05/05/23 documented as of this encounter
--- OUTSIDE RECORDS SUMMARY | 2025-04-18 18:37 | XMS_ITS | Encounter Summary ---
Author Organization [facility] Address [address] [place] [address] Care Team Providers Care English Language Arts Teacher Name Role Phone Unavailable Primary Care Provider Unavailabl e Encounter Details Date Type Department Care Team (Late st Contact Info) Description 02/25/2025 Lab Requisition [facility] Laboratory Services [address] [place] [id number] Jose Manuel Whitney MD [address] [place] [address] Social History Tobacco Use Types Packs/Day Years Used Date Smoking Tobacco: Never Smokeless Tobacco: Current Alcohol Use Standard Drinks/Week Comments No 0 (1 standard drink = 0.6 oz pur e alcohol) Feeling Safe Answer Date Recorded Are you in a relationship wi th someone who hurts you emotionally and/or physically? No 02/22/2025 Comments Unknown Sex and Gender Information Value Date Recorded Sex Assigned at Not on file Legal Sex Female 4:13 AM FINANCIAL FOUNDATIONS REPRESENTATIVE Gender Identity Not on file Sexual Orientation Not on file documented as of this encounter Plan of Treatment Not on file documented as of this encounter Procedures Procedure Name Priority Date/Time Associated Diagnosis Comments HEMOGLOBIN A1C Routine 02/25/2025 6:30 AM CDT GLUCOSE FASTING Routine 02/25/2025 6:30 AM CDT LIPID PANEL Routine 02/25/2025 6:30 AM CDT documented in this encounter Results * HEMOGLOBIN A1C (02/25/2025 6:30 AM CDT) HEMOGLOBIN A1C 5.1 <=5.6 % 02/25/2025 10:09 AM CDT [facility] EST. AVG GLUCOSE, A1C 100 mg/dL 02/25/2025 10:09 AM T [facility] Blood 02/25/2025 6:30 AM CDT 02/25/2025 9:[address] [facility] - 02/25/2025 10:09 AM CDT HGB A1C INTERPRETATION NORMAL: <5.7% PRE-DIABETES: 5.7 - 6.4% DIABETES: 6.5% OR GREATER Jose Manuel Whitney MD CHEMISTRY ORDERABLES Final Res ult Performing Organization Address City/[facility]/ZIP Co de Phone Number [facility] [id number] [address] [place] [phone] * GLUCOSE FASTING (02/25/2025 6:30 AM CDT) GLUCOSE-FASTIN G 86 70 - 115 mg/dL 02/25/2025 10:00 AM CDT [facility] Blood Collection / Unknown 02/25/2025 6:30 AM CDT 02/25/2025 9:12 AM CDT Jose Manuel Whitney MD CHEMISTRY ORDERABLES Final Res ult [facility] [id number] [address] [place] [phone] * LIPID PANEL (02/25/2025 6:30 AM CDT) CHOLESTEROL 142 <200 mg/dL 02/25/2025 10:00 AM T [facility] TRIGLYCERIDE 89 <150 mg/dL 02/25/2025 10:00 AM CDT [facility] HDL 40 40 - 59 mg/dL 02/25/2025 10:00 AM [facility] LDL CALCULATED 84 <100 mg/dL 02/25/2025 10:00 AM [facility] NON-HDL CHOLESTEROL 102 <130 mg/dL 02/25/2025 10:00 AM [facility] Blood Collection / Unknown 02/25/2025 6:30 AM CDT 02/25/2025 9:12 AM CDT [facility] - 02/25/2025 10:00 AM CDT TOTAL CHOLESTEROL mg/dL Desirable <200 [...] Whitney MD CHEMISTRY ORDERABLES Final Res ult [facility] [id number] [address] [place] [address] [phone] documented in this encounter Visit Diagnoses Not on filedocumented in this encounter
--- OUTSIDE RECORDS SUMMARY | 2025-04-18 18:37 | XMS_ITS | Encounter Summary ---
Author Organization [facility] Address [address] [place] [address] Care Team Providers Care Cutting Torch Operator Name Role Phone Kirsty Ricci PA-C Primary Care Provider [phone] Reason for Visit * Reason Onset Date Comments Comprehensive Care Management 04/17/2025 Encounter Details Date Type Department Care Team (Latest Contact Info) Description 04/17/2025 Patient Outreach [address] [address] [facility] Comprehensive Care Management Social History Tobacco Use Types Packs/Day Years Used Date Smoking Tobacco: Never Smokeless Tobacco: Former Chew Alcohol Use Standard Drinks/Week Comments No 0 (1 standard drink = 0.6 oz pur e alcohol) [facility] Utilities Answer Date Recorded In the past 12 months has [facility] [employer], gas, oil, or water [employer] threatened to shut off services in your [...] How often do you attend uatsdin or uatsdin serv ices? Never 01/07/2024 Do you belong [...] Answer Date Recorded PHQ-2 Score 0 08/25/2023 [facility] Occupat ional Health - [...] place to sleep or slept in a fci (including now)? No 01/07/2024 Comments Unknown Sex and Gender Information Value Date Recorded Sex Assigned at Not on file Legal Sex Female 7:09 PM CDT Gender Identity Not on file Sexual Orientation Not on file documented as of this encounter Miscellaneous Notes * Hotel Service Manager Note - Marcia Grant LPC - 04/17/2025 1:42 PM CDT [facility] reached out to pt by phone for follow-up/support. Pt reported she currently is living in a 6 month fci in [place]. She has plans to move to [place] with a friend. Pt compliant with meds. Agreed to reach out to [facility] as needed. In preparation for the phone contact, this Health Home steam fitter reviewed patient's previous encounters and plan of care. Plan to consult with patient's NCM as needed, and reach out to patient in the future if needed or requested. Marcia Grant LPC Health Home. 04/17/2025 1:44 PM documented in this encounter Plan of [...] is about the size of your fist. [place] last reviewed this educational content on 07/24/202219994649-5499 The [employer]. All rights reserved. This information is not [...] following code: OR Go to the website: www.QuickCheck Health Enter the prescription code: RKX The [employer]. All rights reserved. This information is not [...] is homeless and currently in a women's fci out of town and needs to find a place close to [place]. documented as of this encounter Visit Diagnoses [...] documented as of this encounter Care Teams Cutting Torch Operator Relationship Specialty Start Date End Date Kirsty Ricci PA-C [address] [place] [address] PCP - General Physician Retort Unloader 05/05/23 documented as of this encounter
--- OUTSIDE RECORDS SUMMARY | 2025-04-18 18:37 | XMS_ITS | Encounter Summary ---
Author Organization [facility] Address [address] [place] [address] Care Team Providers Care Etcher Hand Name Role Phone Unavailable Primary Care Provider Unavailabl e Encounter Details Date Type Department Care Team (Late st Contact Info) Description 03/03/2025 Lab Requisition [facility] Laboratory Services [address] [id number] [facility] [place] [phone] Jose Manuel Whitney MD [address] [place] [address] Social History Tobacco Use Types Packs/Day [...] on file Legal Sex Female 4:13 AM PHARMACOVIGILANCE SAFETY EXPERT Gender Identity Not on file Sexual Orientation Not on file documented as of this encounter Plan of Treatment Not on file documented as of this encounter Procedures Procedure Name Priority Date/Time Associated Diagnosis Comments HEMOGLOBIN A1C Routine 03/03/2025 5:40 AM CDT LIPID PANEL Routine 03/03/2025 5:40 AM CDT documented in this encounter Results * HEMOGLOBIN A1C (03/03/2025 5:40 AM CDT) HEMOGLOBIN A1C 5.4 <=5.6 % 03/03/2025 7:25 AM CDT [facility] EST. AVG GLUCOSE, A1C 108 mg/dL 03/03/2025 7:25 AM CDT [facility] Blood 03/03/2025 5:40 AM CDT 03/03/2025 7:02 AM CDT [facility] - 03/03/2025 7:25 AM CDT HGB A1C INTERPRETATION NORMAL: <5.7% PRE-DIABETES: 5.7 - 6.4% DIABETES: 6.5% OR GREATER us Jose Manuel Whitney MD CHEMISTRY ORDERABLES Final Res ult [facility] [id number] [address] [place] [address] * (ABNORMAL) LIPID PANEL (03/03/2025 5:40 AM CDT) CHOLESTEROL 122 <200 mg/dL 03/03/2025 7:28 AM CDT [facility] TRIGLYCERIDE 57 <150 mg/dL 03/03/2025 7:28 AM T [facility] HDL 36(L) 40 - 59 mg/dL 03/03/2025 7:28 AM T [facility] LDL CALCULATED 75 <100 mg/dL 03/03/2025 7:28 AM T [facility] NON-HDL CHOLESTEROL 86 <130 mg/dL 03/03/2025 7:28 AM T [facility] Blood Collection / Unknown 03/03/2025 5:40 AM CDT 03/03/2025 7:02 AM CDT [facility] - 03/03/2025 7:28 AM CDT TOTAL [...] Whitney MD CHEMISTRY ORDERABLES Final Res ult [facility] [id number] [address] [place] [address] documented in this encounter Visit Diagnoses Not on filedocumented in this encounter
--- OUTSIDE RECORDS SUMMARY | 2025-04-18 18:38 | XMS_ITS ---
Care Plan Created on: April 18, 2025 Silvana Espino : 1985 Sex: Female Author Organization [facility] Address [address] [place] [address] Care Team Providers Care Database Architect Name Role Phone Kirsty Ricci PA-C Primary Care Provider [phone] Active Problems Problem Noted Date Diagnosed Date [...] 08/25/2023 Assessment & Plan (08/25/2023 10:07 AM MINE MANAGER): 30-year-old female with the above diagnoses. Up-to-date on cervical cancer screen, followed by template reproduction technician. Labs obtained today. Will call with results Gastroesophageal reflux disease 08/25/2023 Assessment & Plan (08/25/2023 10:08 AM MINE MANAGER): Will start on a PPI, discussed side effects. Discussed lifestyle changes including elevating the head of bed, decreasing tomato products, no minty products or caffiene, and weight loss. Follow up in 2 months, sooner if symptoms worsen. Hypersomnia 08/25/2023 Assessment & Plan (08/25/2023 10:07 AM MINE MANAGER): Discussed sleep hygiene and weight loss. Will obtain home sleep study Bilateral hip pain 08/14/2023 Assessment & Plan (08/14/2023 7:30 AM MINE MANAGER): Will obtain imaging of the hips and [...] Man yehuda reported she was placed in [facility] last week for inappropriately using 911. She [...] Silvana's children live with her sister in [place]. Her sister has guardianship. Silvana reported today a stable mood and affect. She requested weekly appointments at this time which seems appropriate. Patient was excited for the option of tele health. Interventions: A person centered approach was used to process current cognitions and affect. SHORT TERM GOALS -Process/address current stressors -Take any medications as prescribed -Attend therapy appointments USP GOALS -Improve coping skills to manage stressors [...] reviewed this educational content on 07/24/2022 The Smart Imaging Systems. All rights reserved. This information is not [...] such as seated exercises, swimming, etc. [employer]Sheets Keeping Your Back Healthy Back pain is [...] following code: OR Go to the website: www.Maui [employer] Company Enter the prescription code: RKX The Smart [employer] Systems. All rights reserved. This information is not [...] currently in a women's chcf out of town and needs to find a place close to [place]. Interventions Care Plan Interventions Intervention Entry Date [...]
--- OUTSIDE RECORDS SUMMARY | 2025-04-18 18:38 | XMS_ITS | Encounter Summary ---
Author Organization [facility] Address [address] [place] [address] Care Team Providers Care Metal Furniture Assembler Name Role Phone Kirsty Ricci PA-C Primary Care Provider [phone] Encounter Details Date Type Department Care Team (Late st Contact Info) Description 06/13/2015 Orders Only [facility] Radiology [address] [facility] [place] [address] System, Provider Not In, [address] [place] [address] Social History Tobacco Use Types Packs/Day Years [...] 06/13/2015 10:44 AM CDT Historic images from [facility] exist and can be viewed by using the hyperlink to access [employer] pacs: PELVIC US Procedure Note System, Provider Not In - 10/15/2019 Historic images from [facility] exist and can be viewed byusing the hyperlink to access [employer] pacs: PELVIC US us Provider Not In [...] MRSA (Other) 01/02/2021 01/02/2021 07/01/2021 4:00 AM CLERICAL SUPERVISOR COVID-19 (rule out) 02/05/2022 02/05/2022 02/06/20 22 5:36 PM CDT COVID-19/Influenza (Rule Out) 07/17/2022 07/17/2022 07/17/2022 9:39 AM CLERICAL SUPERVISOR COVID-19 (confirmed) 07/17/2022 07/17/2022 022 4:00 AM CLERICAL SUPERVISOR COVID-19 (rule out) 02/07/2025 02/07/2025 02/08/20 25 10:09 PM CDT COVID-19 (rule out) 02/17/2025 02/17/2025 02/18/20 25 1:32 PM CDT documented as of this encounter Care Teams Metal Furniture Assembler Relationship Specialty Start Date End Date Kirsty Ricci PA-C [address] [place] [address] PCP - General Physician Technical Support Coordinator 05/05/23 documented as of this encounter
--- OUTSIDE RECORDS SUMMARY | 2025-04-18 18:38 | XMS_ITS | Encounter Summary ---
Author Organization [facility] Address [address] [place] [address] Care Team Providers Care Coroner/Medical Examiner Name Role Phone Kirsty Ricci PA-C Primary Care Provider [phone] Encounter Details Date Type Department Care Team (Late st Contact Info) Description 05/01/2015 Orders Only [facility] Radiology [address] [facility] [place] [address] System, Provider Not In, [address] [facility] [place] [address] Social History Tobacco Use Types Packs/Day Years [...] 05/01/2015 1:02 PM CDT Historic images from [facility] exist and can be viewed by using the hyperlink to access [employer] pacs: EP LT ANKLE - 3 VIEWS/AKLE PAIN Procedure Note System, Provider Not In - 10/15/2019 Historic images from [place] [employer] [facility] exist and can be viewed byusing the hyperlink to access [employer] pacs: EP LT ANKLE - 3 VIEWS/AKLEPAIN [...] MRSA (Other) 01/02/2021 01/02/2021 07/01/2021 4:00 AM SUPERANNUATION FUNDS MANAGER COVID-19 (rule out) 02/05/2022 02/05/2022 02/06/20 22 5:36 PM CDT COVID-19/Influenza (Rule Out) 07/17/2022 07/17/2022 07/17/2022 9:39 AM SUPERANNUATION FUNDS MANAGER COVID-19 (confirmed) 07/17/2022 07/17/2022 022 4:00 AM SUPERANNUATION FUNDS MANAGER COVID-19 (rule out) 02/07/2025 02/07/2025 02/08/20 25 10:09 PM CDT COVID-19 (rule out) 02/17/2025 02/17/2025 02/18/20 25 1:32 PM CDT documented as of this encounter Care Teams Coroner/Medical Examiner Relationship Specialty Start Date End Date Kirsty Ricci PA-C [address] [place] [address] PCP - General Physician Billiard Parlor Manager 05/05/23 documented as of this encounter
--- OUTSIDE RECORDS SUMMARY | 2025-04-18 18:38 | XMS_ITS | Clinical Summary ---
Author Organization [facility] Address [address] [place] [address] Care Team Providers Care Petroleum Engineering Teacher Name Role Phone Kirsty Ricci PA-C Primary Care Provider [phone] Allergies Active Allergy Reactions Criticality Noted Date [...] 08/25/2023 Assessment & Plan (08/25/2023 10:07 AM NIPPLE THREADER): 30-year-old female with the above diagnoses. Up-to-date on cervical cancer screen, followed by director of environmental services. Labs obtained today. Will call with results Gastroesophageal reflux disease 08/25/2023 Assessment & Plan (08/25/2023 10:08 AM NIPPLE THREADER): Will start on a PPI, discussed side effects. Discussed lifestyle changes including elevating the head of bed, decreasing tomato products, no minty products or caffiene, and weight loss. Follow up in 2 months, sooner if symptoms worsen. Hypersomnia 08/25/2023 Assessment & Plan (08/25/2023 10:07 AM NIPPLE THREADER): Discussed sleep hygiene and weight loss. Will obtain home sleep study Bilateral hip pain 08/14/2023 Assessment & Plan (08/14/2023 7:30 AM NIPPLE THREADER): Will obtain imaging of the hips and [...] Abel blackman reported she was placed in retirement last week for inappropriately using 911. She [...] Silvana's children live with her sister in [place]. Her sister has guardianship. Silvana reported today a stable mood and affect. She requested weekly appointments at this time which seems appropriate. Patient was excited for the option of tele health. Interventions: A person centered approach was used to process current cognitions and affect. 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 Referral to psychological counseling. Psychological condition will be reassessed at the next regular appointment. Encounters Date Type Department Care Team Description 04/17/2025 Patient Outreach [address] [address] Marcia Grant LPC Comprehensive Care Management 03/28/2025 Patient Outreach [address] [address] Danitza Larkin RN Transitions of Care (Phone call) 03/22/2025 Patient Outreach [address] [place] [address] Danitza Larkin RN Transitions of Care (Unable to contact. ) 03/21/2025 Patient Outreach [address] [place] [address] Danitza Larkin RN Transitions of Care (Unable to contact. ) 03/20/2025 Patient Outreach [address] [place] [address] Danitza Larkin, RN Transitions of Care (Unable to contact) 03/17/2025 Patient Outreach [address] [place] [address] Danitza Larkin, RN Transitions of Care (Unable to contact) 03/16/2025 Patient Outreach [address] [place] [address] Danitza Larkin, RN Transitions of Care (Unable to contact) 03/15/2025 Patient Outreach [address] [place] [address] Danitza Larkin, RN Transitions of Care (Unable to contact.) 03/14/2025 Patient Outreach [address] [place] [address] Danitza Larkin RN Transitions of Care (Unable to contact) 03/13/2025 Patient Outreach [address] [place] [address] Danitza Larkin RN Transitions of Care (Unable to contact) 03/10/2025 Patient Outreach [address] [place] [address] Danitza Larkin, RN Transitions of Care (Unable to contact.) 03/09/2025 Patient Outreach [address] [place] [address] Danitza Larkin, RN Transitions of Care (Unable to contact.) 03/01/2025 Patient Outreach [address] [place] [address] Danitza Larkin, RN Transitions of Care (Unable to contact) 02/28/2025 Patient Outreach [address] [place] [address] Danitza Larkin, RN Transitions of Care (Unable to contact) 02/21/2025 Patient Outreach [address] [address] Danitza Larkin RN Transitions of Care (Voicemail) 02/20/2025 Patient Outreach [address] [address] Danitza Larkin RN Transitions of Care (Voicemail) 02/17/2025 12:50 PM CDT - 02/17/2025 3:42 PM CDT Emergency [facility] Emergency Department [address] [place] [address] Jose Soliman DO Auditory hallucinations (Primary Dx) Discharge Disposition: Nursing Home/Halfway 02/17/2025 Travel 02/14/2025 Patient Outreach [address] [address] Danitza Larkin RN Transitions of Care (Phone call) 02/14/2025 Patient Outreach [address] [address] Danitza Larkin RN Transitions of Care (Voicemail/) 02/10/2025 Patient Outreach [address] [address] Danitza Larkin RN Transitions of Care (Unable to contact/) 02/07/2025 9:31 PM CDT - 02/08/2025 4:59 PM CDT Emergency [facility] Emergency Department [address] [place] [address] Yuri Guido MD Killen, Michael S, MD Richardson, Kevin R, MD Suicidal ideations (Primary Dx) Discharge Disposition: Home or Self Care 02/07/2025 Travel 02/02/2025 Patient Outreach [address] [address] Danitza Larkin, RN Chart Review 01/25/2025 Orders Only [facility] [address] [place] [id number] Beverly De La Vega RN Anemia, unspecified [...] drink = 0.6 oz pur e alcohol) [facility] Utilities Answer Date Recorded In the past 12 months has [employer], [employer], or water [employer] threatened to shut off services in your [...] How often do you attend religion or lutheran serv ices? Never 01/07/2024 Do you belong [...] Date Recorded PHQ-2 Score 0 08/25/2023 [facility] - Occupational [...] Maura last reviewed this educational content on 07/24/202219991907-7444 [employer]. All rights reserved. This information is not intended as a substitute for professional medical care. Always follow your healthcare professional's instructions. Exercise at Least 20 Minutes per Day Care Plan Patient is Inactive On track( 11:33 AM CDT) No Danitza Larkin RN Note: Images from the original note [...] following code: OR Go to the website: www.[employer] Enter the prescription code: RKX [employer]. All rights reserved. This information is not intended as a substitute for professional medical care. Always follow your healthcare professional's instructions. Consistently take Medications as Prescribed Care Plan Medication Adherence On track( 11:19 AM CDT) No Danitza Larkin, RN Assist with finding housing Care Plan Lack of housing On track( 025 3:19 PM CDT) No Danitza Larkin, RN Note: 03/28/25-Patient reports that she is homeless and currently in a women's senior care out of town and needs to find a place close to [place]. Procedures Procedure Name Priority Date/Time Associated Diagnosis [...] color Yellow NA 02/17/2025 1:40 PM CDT [facility] Urine appearance Cloudy(A) Clear NA 02/18/20 1:40 PM CDT [facility] Urine specific gravity 1.026 1.005 - 1.030 NA 02/17/2025 1:40 PM CDT [facility] Urine pH 5.5 5.0 - 9.0 NA 02/17/2025 1:40 PM CDT [facility] LEUKOCYTES ESTERASE Negative Negative {cells}/uL 02/17/2025 1:40 PM CDT [facility] Urine nitrites Negative Negative NA 1:40 PM CDT [facility] Urine protein Negative <=10 mg/dL 02/17/2025 1:40 PM CDT [facility] Urine glucose Negative Negative mg/dL 02/17/2025 1:40 PM CDT [facility] Urine ketones Negative Negative mg/dL 02/17/2025 1:40 PM CDT [facility] Urine urobilinogen 0.2 0.2 - 1.0 mg/dL 02/17/2025 1:40 PM CDT [facility] Urine bilirubin Negative Negative mg/dL 02/17/2025 1:40 PM CDT [facility] BLOOD Negative Negative mg/dL 02/17/2025 1:40 PM CDT [facility] WBC 3-5 0 - 5 {#}/[HPF] 02/17/2025 1:40 PM CDT [facility] RBC 0-2 0 - 2 {#}/[HPF] 02/17/2025 1:40 PM CDT [facility] Squamous Epithelial >100 None {#}/[LPF] 02/17/2025 1:40 PM CDT [facility] Mucus Trace None NA 02/17/2025 1:40 PM CDT [facility] Urine Spot urine specimen / Unknown 02/17/2025 1:27 PM CDT 02/17/2025 1:32 PM CDT Narrative [facility] - 02/17/2025 1:40 PM CDT [...] MICROBIOLOGY - GENERAL ORDER SHRUTHI Final Result [facility] [address] [place] [address] * (ABNORMAL) Drugs of Abuse Screen, urine Specimen Source: Urine, Random (02/17/2025 1:27 PM CDT) Only the most recent of2 resultswithin the time period is included. Amphetamines NEGATIVE Negative NA 02/17/2025 2:32 PM CDT [facility] Benzodiazepine POSITIVE(A) Negative NA 02/18/20 2:32 PM CDT [facility] Cannabinoid POSITIVE(A) Negative NA 02/17/2025 2:32 PM CDT [facility] Cocaine POSITIVE(A) Negative NA 02/17/2025 2:32 PM CDT [facility] Opiates NEGATIVE Negative NA 02/17/2025 2:32 PM CDT [facility] PCP NEGATIVE Negative NA 02/17/2025 2:32 PM CDT [facility] Propoxyphene NEGATIVE Negative NA 02/17/2025 2:32 PM CDT [facility] Comment: Amphetamine - 500 ng/mL [...] NEGATIVE Negative NA 02/17/2025 2:59 PM CDT [facility] Urine Spot urine specimen / Unknown 02/17/2025 1:27 PM CDT 02/17/2025 1:32 PM CDT us Jose Soliman DO LAB URINE ORDERABLES Final Resul t [facility] [address] [place] [address] * EKG (Adult) (02/17/2025 1:04 PM CDT) Only the most recent of3 resultswithin the time period is included. 02/17/2025 1:04 PM CDT Narrative [facility] - 02/20/2025 1:58 PM CDT [facility] Test Date: 2025-02-17 Pat Name: SILVANA ESPINO Department: [facility] Room: Gender: Female Field Consultant: [id number] : 1985 Requested By: [facility] [employer] Order Number: [id number] Reading MD: Alec Blood Measurements Intervals [place] Rate: 70 P: 53 MA: 131 QRS: 28 QRSD: 102 T: 8 QT: 396 QTc: 429 Interpretive Statements SINUS RHYTHM Reviewed by Compared to ECG 02/08/2025 12:23:50 No significant changes Electronically Signed On 02-20-2025 13:58:21 CDT by Alec Blood us Jose Soliman DO ECG ORDERABLES Final Result Performing Organization Address [facility] Co de Phone Number [facility] * Bill CBC auto diff (02/17/2025 12:59 PM CDT) Only the most recent of2 resultswithin the time period is included. 02/17/2025 12:5 9 PM CDT 02/17/2025 1:09 PM CDT us Triage Protocol Emergency MD LAB BLOOD ORDERABLE S Final Result Performing Organization Address City/[facility]/ZIP Co de Phone Number [facility] [address] [address], [place] * GFR for Adult (02/17/2025 12:59 PM CDT) Only the most recent of2 resultswithin the time period is included. GFR for adult >60 mL/min/1.7 3m2 02/17/2025 1:38 PM CDT [facility] Comment: This estimated glomerular filtration [...] MD LAB BLOOD ORDERABLE S Final Result [facility] [address] [address] * SARS-CoV-2 (Novel Coronavirus 2018) PCR (02/17/2025 12:59 PM CDT) Only the most recent of2 resultswithin the time period is included. [facility] SARS-Cov-2 by PCR Not Detected Not Detected NA 02/17/2025 1:32 PM CDT [facility] Comment: A Detected result is [...] Fact Sheet header using the following websites: https://www.[facility].net/labs/ Test method is RT-PCR manufactured by [employer] and performed on the deana Elvia system. This test has been authorized by the FDA under an Emergency Use Authorization (EUA) for use by authorized laboratories. Nasopharynx Nasopharyngeal structure / Unknown 02/17/2025 12:59 PM CDT 02/17/2025 1:07 PM CDT Narrative [facility] - 02/17/2025 1:32 PM CDT If unsure of COVID-19 symptom onset, enter date of lab specimen collection. us Jose Soliman DO LAB MICROBIOLOGY - GENERAL ORDER SHRUTHI Final Result Performing Organization Address [facility] de Phone Number [address] [address] * Free T4 STAT (02/17/2025 12:59 PM CDT) Only the most recent of2 resultswithin the time period is included. Free T4 0.87 0.70 - 1.85 ng/dL 02/17/2025 1:44 PM CDT [facility] Blood Venous blood / Unknown 02/17/2025 12:59 PM CDT 02/17/2025 1:09 PM CDT us Jose Soliman DO LAB BLOOD ORDERABLES Final Resul t Performing Organization Address [facility] Co de Phone Number [address] [address] * (ABNORMAL) CBC with Differential STAT (02/17/2025 12:59 PM CDT) Only the most recent of2 resultswithin the time period is included. WBC 5.68 4.20 - 10.20 10*3/uL 02/17/2025 1:14 PM CDT [facility] RBC 5.13(H) 3.70 - 5.06 10*6/uL 02/17/2025 1:14 PM CDT [facility] Hemoglobin 12.7 11.8 - 15.8 g/dL 02/17/2025 1:14 PM CDT [facility] Hematocrit 40.6 36.0 - 52.0 % 02/17/2025 1:14 PM CDT [facility] MCV 79.1(L) 83.5 - 100.2 fL 02/17/2025 1:14 PM CDT [facility] MCH 24.8(L) 27.0 - 33.0 pg 02/17/2025 1:14 PM CDT [facility] MCHC 31.3 31.0 - 37.0 g/dL 02/17/2025 1:14 PM CDT [facility] Platelet Count 253 135 - 400 10*3/uL 02/17/2025 1:14 PM CDT [facility] RDW CV 15.1(H) 10.9 - 14.0 % 02/17/2025 1:14 PM CDT [facility] MPV 10.2 6.7 - 12.0 fL 02/17/2025 1:14 PM CDT [facility] Neutrophils 59.40 40.00 - 96.00 % 02/17/2025 1:14 PM CDT [facility] Lymphocytes 32.00 0.00 - 50.00 % 02/17/2025 1:14 PM CDT [facility] Monocytes 3.90 0.00 - 20.00 % 02/17/2025 1:14 PM CDT [facility] Eosinophils 3.90 0.00 - 15.00 % 02/17/2025 1:14 PM CDT [facility] Basophils 0.40 0.00 - 3.00 % 02/17/2025 1:14 PM CDT [facility] Absolute Neutrophils 3.38 2.04 - 6.90 10*3/uL 02/17/2025 1:14 PM CDT [facility] Absolute Lymphocytes 1.82 0.05 - 5.01 10*3/uL 02/17/2025 1:14 PM CDT [facility] Absolute Monocytes 0.22 0.05 - 2.04 10*3/uL 02/17/2025 1:14 PM CDT [facility] Absolute Eosinophils 0.22 0.00 - 0.50 10*3/uL 02/17/2025 1:14 PM CDT [facility] Absolute Basophils 0.02 0.00 - 0.31 10*3/uL 02/17/2025 1:14 PM CDT [facility] Immature Granulocytes 0.40 0.00 - 3.00 % 02/17/2025 1:14 PM CDT [facility] Nucleated RBC 0.00 0.00 - 0.01 /100{WBCs} 02/17/2025 1:14 PM CDT [facility] Blood Venous blood / Unknown 02/17/2025 12:59 PM CDT 02/17/2025 1:09 PM CDT us Jose Soliman DO LAB BLOOD ORDERABLES Final Resul t [address] [address] * hCG, serum, qualitative STAT (02/17/2025 12:59 PM CDT) Only the most recent of2 resultswithin the time period is included. [facility] Beta HCG Qualitative Negative NA 02/17/2025 1:32 PM CDT [facility] Comment:Reference Range: Neg ative Blood Venous blood / Unknown 02/17/2025 12:59 PM CDT 02/17/2025 1:09 PM CDT us Jose Soliman DO LAB BLOOD ORDERABLES Final Resul t [address] [address] * TSH, 3rd generation STAT (02/17/2025 12:59 PM CDT) Only the most recent of2 resultswithin the time period is included. [facility] TSH, 3rd Gen 3.030 0.270 - 4.670 u[IU]/mL 02/17/2025 1:44 PM CDT [facility] Blood Venous blood / Unknown 02/17/2025 12:59 PM CDT 02/17/2025 1:09 PM CDT us Jose Soliman DO LAB BLOOD ORDERABLES Final Resul t Performing Organization Address City/[facility]/ZIP Co de Phone Number [address] [address] * Creatine kinase (CK) STAT (02/17/2025 12:59 PM CDT) Only the most recent of2 resultswithin the time period is included. Creatine Kinase 66 0 - 132 U/L 02/17/2025 1:38 PM CDT [facility] Blood Venous blood / Unknown 02/17/2025 12:59 PM CDT 02/17/2025 1:09 PM CDT us Jose Soliman DO LAB BLOOD ORDERABLES Final Resul t Performing Organization Address [facility] de Phone Number [address] [address] * Alcohol STAT (02/17/2025 12:59 PM CDT) Only the most recent of2 resultswithin the time period is included. Alcohol <0.010 0.000 - 0.009 g/dL 02/17/2025 1:44 PM CDT [facility] Blood Venous blood / Unknown 02/17/2025 12:59 PM CDT 02/17/2025 1:09 PM CDT us Jose Soliman DO LAB BLOOD ORDERABLES Final Resul t Performing Organization Address City/[facility]/ZIP Co de Phone Number [address] [address] * Acetaminophen level STAT (02/17/2025 12:59 PM CDT) Only the most recent of2 resultswithin the time period is included. Acetaminophen <5.0 ug/mL 02/17/2025 1:37 PM CDT [facility] Comment: THERAPEUTIC RANGE: <150 UG/ML 4 HOURS AFTER INGESTION < 50 UG/ML 12 HOURS AFTER INGESTION TOXIC: >150 UG/ML 4 HOURS AFTER INGESTION Blood Venous blood / Unknown 02/17/2025 12:59 PM CDT 02/17/2025 1:09 PM CDT Jose Funez Soliman LAB BLOOD ORDERABLES Final Resul t Performing Organization Address City/[facility]/ZIP Co de Phone Number [address] [address] * (ABNORMAL) Salicylate level STAT (02/17/2025 12:59 PM CDT) Only the most recent of2 resultswithin the time period is included. Salicylate <5.0(L) 150.0 - 300.0 mg/L 02/17/2025 1:44 PM CDT [facility] Blood Venous blood / Unknown 02/17/2025 12:59 PM CDT 02/17/2025 1:09 PM CDT Jose Funez Jourdan [facility] LAB BLOOD ORDERABLES Final Resul t [address] [address] * Comprehensive metabolic panel STAT (02/17/2025 12:59 PM CDT) Only the most recent of2 resultswithin the time period is included. Sodium 140 131 - 145 meq/L 02/17/2025 1:38 PM CDT [facility] Potassium 4.3 3.3 - 5.0 meq/L 02/17/2025 1:38 PM CDT [facility] Chloride 108 96 - 111 meq/L 02/17/2025 1:38 PM CDT [facility] CO2 20 20 - 31 meq/L 02/17/2025 1:38 PM CDT [facility] BUN 11 5 - 23 mg/dL 02/17/2025 1:38 PM T [facility] Creatinine 0.68 0.60 - 1.40 mg/dL 02/17/2025 1:38 PM CDT [facility] Glucose 91 72 - 113 mg/dL 02/17/2025 1:38 PM CDT [facility] Calcium 8.7 8.2 - 10.2 mg/dL 02/17/2025 1:38 PM CDT [facility] CALCIUM, CORRECTED 8.9 8.2 - 10.2 mg/dL 02/17/2025 1:38 PM T [facility] Comment:Calcium corrected fo r Albumin of less than 4.0. Bilirubin Total 0.3 0.1 - 0.9 mg/dL 02/17/2025 1:38 PM CDT [facility] Alkaline Phosphatase 109 38 - 137 U/L 02/17/2025 1:38 PM [facility] ALT (SGPT) 12 0 - 31 U/L 02/17/2025 1:38 PM [facility] AST (SGOT) 16 6 - 32 U/L 02/17/2025 1:38 PM [facility] Total Protein 6.8 6.1 - 8.2 g/dL 02/17/2025 1:38 PM [facility] Albumin 3.8 3.7 - 5.1 g/dL 02/17/2025 1:38 PM T [facility] Anion Gap 12 8 - 16 NA 02/17/2025 1:38 PM [facility] Alb/Glob Ratio Calc 1.3 1.1 - 2.2 g/dL 02/17/2025 1:38 PM [facility] BUN/Creatinine Ratio 16 mg/dL 02/17/2025 1:38 PM [facility] Blood Venous blood / Unknown 02/17/2025 12:59 PM CDT 02/17/2025 1:09 PM CDT us Jose Dee Dee Jourdan DO LAB BLOOD ORDERABLES Final Resul t [facility] [address] [facility] [place] [address] * X-ray Bedside Chest 1 View (02/08/2025 [...] No acute radiographic abnormality. Holland Barton MD IMG DIAGNOSTIC IMAGING ORD ERABLES Final Result * ThinPrep Diag w/HVP>=30yr (11/18/2023 10:39 AM CDT) ThinPrep Diag w/HVP>=30yr SEE BELOW NA 11/30/2023 2:55 PM CDT [facility] Comment: ThinPrep w/HPV [id number] NOTE Test Result Flag Unit RefValue ThinPrep w/HPV [id number] Interpretation Cervical/Endocervical (ThinPrep): Satisfactory for Evaluation Negative [...] 66, and 68. Report electronically signed by Daina Flores [facility] (AS[facility]) I verify that I have examined all relevant slides/materials for the specimen(s) and rendered or confirmed the diagnosis. Gross Description Received specimen in a ThinPrep vial. Pap Test Source Cervical/Endocervical Clinical History na Menstrual Status (LMP, PM, 11.06.2023 ) Hormone Therapy/Contraceptives None/Not known Test Performed by: [address] [address] Osteopathic Neurologist: Yuri Domínguez M.D. Ph.D.; CLIA# [id number] Cervix/Vaginal 11/18/2023 10 :39 AM CDT 11/19/2023 11:24 AM CDT Narrative [facility] - 11/30/2023 2:55 PM CDT Pap Smear Source->Cervical/Endocervical Last Menstral Period (LMP) Date->11/06/23 Hormone Therapy/Contraceptives->None Pertinent Clinical History->NA us Kirsty Ricci PA-C LAB PATHOLOGY/CYTOLOGY ORDERA BLEBeni Final Result [facility] [address] [place] [address] from Last 3 Months or Most Recently Relevant to Health Maintenance Additional Health Concerns Active Problems Noted Date Diagnosed Date Diet Management 11/18/2023 Patient is Inactive 11/18/2023 Medication Adherence 11/18/2023 Lack of housing 03/28/2025 Insurance [place] [facility] [place] [facility] GENERIC [employer]O INSURANCE on file Advance Directives * Code Blue and Intubation (Latest Code Status on File) Date Activated Date Inactivated Comments 01/05/2020 1:56 PM 01/07/2020 12:44 PM Care Teams Petroleum Engineering Teacher Relationship Specialty Start Date End Date Kirsty Ricci PA-C 70 [place] [id number] PCP - General Physician Collar Separator 05/05/23
--- OUTSIDE RECORDS SUMMARY | 2025-04-18 18:38 | XMS_ITS | Encounter Summary ---
Author Organization [facility] Address [address] [place] [address] Care Team Providers Care Reinforcing Steel Placer Name Role Phone Kirsty Ricci PA-C Primary Care Provider [phone] Encounter Details Date Type Department Care Team (Late st Contact Info) Description 05/01/2015 Orders Only [facility] Radiology [address] [facility] [place] [address] System, Provider Not In, [address] [facility] [place] [address] Social History Tobacco Use Types Packs/Day Years [...] 05/01/2015 12:59 PM CDT Historic images from [facility] exist and can be viewed by using the hyperlink to access Snippets pacs: EP RT ANKLE - 3 VIEWS/ANKLE PAIN Procedure Note System, Provider Not In - 10/15/2019 Historic images from [place] [facility] exist and can be viewed byusing the hyperlink to access Snippets pacs: EP RT ANKLE - 3 VIEWS/ANKLEPAIN [...] MRSA (Other) 01/02/2021 01/02/2021 07/01/2021 4:00 AM INTERACTIVE MEDIA MARKETING STRATEGIST COVID-19 (rule out) 02/05/2022 02/05/2022 02/06/20 22 5:36 PM CDT COVID-19/Influenza (Rule Out) 07/17/2022 07/17/2022 07/17/2022 9:39 AM INTERACTIVE MEDIA MARKETING STRATEGIST COVID-19 (confirmed) 07/17/2022 07/17/2022 022 4:00 AM INTERACTIVE MEDIA MARKETING STRATEGIST COVID-19 (rule out) 02/07/2025 02/07/2025 02/08/20 25 10:09 PM CDT COVID-19 (rule out) 02/17/2025 02/17/2025 02/18/20 25 1:32 PM CDT documented as of this encounter Care Teams Reinforcing Steel Placer Relationship Specialty Start Date End Date Kirsty Ricci PA-C [address] [place] [id number] PCP - General Physician Patent Prosecution Attorney 05/05/23 documented as of this encounter
--- OUTSIDE RECORDS SUMMARY | 2025-04-18 18:38 | XMS_ITS | Encounter Summary ---
Author Organization [facility] Address [address] [place] [address] Care Team Providers Care Oncology Account Specialist Name Role Phone Kirsty Ricci PA-C Primary Care Provider [phone] Encounter Details Date Type Department Care Team (Late st Contact Info) Description 07/06/2014 Orders Only [facility] Radiology [address] [facility] [place] [address] System, Provider Not In, [address] [facility] [place] [address] Social History Tobacco Use Types Packs/Day Years [...] Diagnosis Comments OUTSIDE IMAGES 07/06/2014 9:41 AM CANVAS CUTTER documented in this encounter Results * Outside Images (07/06/2014 9:41 AM CANVAS CUTTER) Anatomical Region Laterality Modality N/A Radiographic Ladonna ging 07/06/2014 9:41 AM CANVAS CUTTER Narrative 07/06/2014 9:41 AM CANVAS CUTTER Historic images from [facility] exist and can be viewed by using the hyperlink to access Help.com pacs: RUQ US Procedure Note System, Provider Not In - 10/15/2019 Historic images from [facility] exist and can be viewed byusing the hyperlink to access Help.com pacs: RUQ US us Provider Not In [...] MRSA (Other) 01/02/2021 01/02/2021 07/01/2021 4:00 AM CANVAS CUTTER COVID-19 (rule out) 02/05/2022 02/05/2022 02/06/20 22 5:36 PM CDT COVID-19/Influenza (Rule Out) 07/17/2022 07/17/2022 07/17/2022 9:39 AM CANVAS CUTTER COVID-19 (confirmed) 07/17/2022 07/17/2022 022 4:00 AM CANVAS CUTTER COVID-19 (rule out) 02/07/2025 02/07/2025 02/08/20 25 10:09 PM CDT COVID-19 (rule out) 02/17/2025 02/17/2025 02/18/20 25 1:32 PM CDT documented as of this encounter Care Teams Oncology Account Specialist Relationship Specialty Start Date End Date Kirsty Ricci PA-C [address] [place] [id number] PCP - General Physician Wood Last Maker 05/05/23 documented as of this encounter
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
[2025-04-18 19:06] LABS: HCG Qualitative Urine. Negative (Negative)
[2025-04-18 19:08] LABS: Glucose Urine UA Negative (Normal); Nitrate Urine Negative (Negative); Specific Gravity, Urine 1.021 (1.005-1.030)
[2025-04-18 19:13] LABS: Add Urine Microscopic? YES
[2025-04-18 19:13] LABS: Hematocrit 37.5 % (36-47); Hemoglobin 11.50 g/dL (11.27-16.99); Mean Corpuscular HGB Conc 30.7 g/dL (30-55); Mean Corpuscular Hemoglobin 24.1 pg (27-33); Mean Corpuscular Volume 78.6 fl (85-98); Nucleated Red Blood Cells % 0 %; Platelet Count 239 10^3/cmm (157-399); Red Blood Count 4.77 10^6/uL (3.85-5.65); White Blood Count 5.12 10^3/uL (3.29-11.43)
[2025-04-18 19:15] LABS: PCP Screen Urine Negative (Negative)
[2025-04-18 19:43] LABS: Acetaminophen < 5.0 ug/mL (10-30); Alanine Aminotransferase 10 U/L (0-33); Albumin Level 3.9 g/dL (3.5-5.2); Alcohol Level < 10 mg/dL (0-10); Alkaline Phosphatase 107 U/L (35-105); Anion Gap 15.3 (5-19); Aspartate Amino Transferase 11 U/L (0-32); Blood Urea Nitrogen 14 mg/dL (6-20); Calcium 9.2 mg/dL (8.5-10.5); Carbon Dioxide 22 mmol/L (22-29); Chloride 105 mmol/L (98-107); Globulin 3.1 g/dL (1.3-4.6); Glucose 87 mg/dL (65-115); Osmolality Calculated 286 mOsm/kg (285-295); Potassium 4.3 mmol/L (3.5-5.1); Salicylate < 0.3 mg/dL (3-10); Sodium 138 mmol/L (136-145); Thyroid Stimulating Hormone 4.68 uIU/mL (0.27-4.20); Total Protein 7.0 g/dL (6.6-8.7)
--- NOTE | 2025-04-18 21:56 | PC.NURSE ---
96 HH Pt served with copy of 96 HH by this RN and security. Pt A&Ox3, calm and cooperative. No questions at this time.
--- NOTE | 2025-04-18 22:27 | ECG_ITS ---
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 Measurements Intervals [place] Rate: 82 P: 56 AK: 136 QRS: 44 QRSD: 95 T: 34 QT: 391 QTc: 458 Interpretive Statements SINUS RHYTHM No previous ECG available for comparison Electronically Signed On 04-19-2025 22:30:35 CDT by Booker Parks M.D. [id number]
[2025-04-19 00:10] VITALS: BP 109/75; PULSE 87; RESP 18; TEMP 36.4; O2SAT 96
[2025-04-19 06:00] VITALS: BP 98/63; PULSE 70; RESP 17; TEMP 36.4; O2SAT 98
--- NOTE | 2025-04-19 06:11 | PC.NURSE ---
Pt. admission process, went well with no behavioral issues. No skin issues were found.
--- NOTE | 2025-04-19 06:13 | PC.ADMIT ---
[address] [facility] Admission Note: The patient,Silvana Espino,39 y/o, was given written information regarding hospital policies, unit procedures and contact persons. Patient's smoking status: . Vital Signs - 8 hr 04/19/25 00:10 Temperature 97.6 F Pulse Rate 87 Respiratory Rate 18 Blood Pressure 109/75 Pulse Oximetry 96 Oxygen Delivery Method Room Air Pt. admission process, went well with no behavioral issues. No skin issues were found.
[2025-04-19] MEDS: paliperidone ER 6 mg Tablet PO ×2 (09:37→09:38)
--- NOTE | 2025-04-19 11:37 | NUR.SHIFT ---
Pt states that she slept good last night. She denies anxiety and depression this am. No reports of SI/HI or hallucinations. No pain reported. She is cooperative with assessment, but irritable everyone keeps asking her questions.
[2025-04-19 14:00] VITALS: BP 108/64; PULSE 85; RESP 18; TEMP 36.5; O2SAT 95
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
[2025-04-19 19:55] VITALS: BP 95/63; PULSE 80; RESP 20; TEMP 36.4; O2SAT 95
[2025-04-20 06:00] VITALS: BP 90/56; PULSE 81; RESP 18; TEMP 36.4; O2SAT 95
[2025-04-20] MEDS: paliperidone ER 6 mg Tablet PO (09:36)
--- NOTE | 2025-04-20 11:46 | NUR.SHIFT ---
Pt states that she slept good last night. She rates her anxiety a 7/10 and depression a 2/10. No reports of SI/HI or hallucinations. She denies any pain at this time. She is calm and cooperative this morning on assessment and quickly came to the nurses station for meds without complaint.
[2025-04-20 14:00] VITALS: BP 134/89; PULSE 92; RESP 16; TEMP 36.6; O2SAT 98
--- NOTE | 2025-04-20 15:25 | P.NPUPN_ITS ---
Subjective NPU 2 Subjective: 40-year-old female with PTSD, depression and ADHD admitted with complaints of psychosis. The patient had reported that she continued to hear voices and see various shapes. She had reported that she was encouraged to hear that she would be able to return back to [place]. She had reported continued depression and was agreeable to restarting Wellbutrin as previously prescribed. She had reported improved sleep with her medication regimen. She had been isolative on the milieu. She reported having suicidal thoughts still. Mental Status Exam 2 MSE Comments: The patient is an overweight female with limited hygiene and normal gait who appeared more engaged today. She appeared in mild distress. Her speech was slow and steady with diminished productivity and normal volume. There was no evidence of any abnormal involuntary motor movements, tics or tremors appreciated. Her mood was described as depressed. Her affect appeared flat and mood-congruent. Her thought process was linear, logical and goal directed. Her thought content showed no evidence of homicidal ideation. She endorsed suicidal ideation with a plan to hang herself. She endorsed auditory and visual hallucinations but did not appear to be responding to internal stimuli. There was no clear evidence of delusional thinking. Her recent and remote memory appear grossly intact. Her insight is impaired. Her judgment was poor. Her impulse control appeared limited. Her her intelligence appeared commensurate with mild cognitive impairment. Vitals/I&O/Wt Last Vital Signs Temp 98 F 04/20/25 14:00 Pulse 92 04/20/25 14:00 Resp 16 04/20/25 14:00 BP 134/89 04/20/25 14:00 Pulse Ox 98 04/20/25 14:00 O2 Del Method Room Air 04/20/25 14:00 Data NPU 04/18/25 19:00 04/18/25 19:00 A&P Assessment and plan 1. Acute psychosis: 2. Depression, unspecified: 3. Suicidal ideation: 4. PTSD (post-traumatic stress disorder): Plan: 39-year-old female with an extensive history of psychiatric issues along with mild cognitive impairment admitted with reports of psychosis and depression. #1.? Engage patient in individual milieu and group therapy. #2?? Recommend sober living treatment at the highest level of care to which the patient is willing to commit #3??? Will restart her outpatient medications. ?? Add Wellbutrin xl 150mg in am, continue strattera 80mg daily, remeron 15mg at night, Prazosin 4mg at night, and invega 6mg daily. #4?? TO-15 minute checks? #5?? Will attempt to gather collateral information PDMP PDMP Reviewed: Not Reviewed Involuntary Hold Information 2 Hold Status: Legal Status: 96 Hour Hold Date/Time Hold Expires: 9 6^04/25/25@2125 Attestations NPU 2 Medical Necessity Statement*: Inpatient hospitalization is medically necessary and deemed to ?be ?the clinically appropriate intervention ?at this time.? We will monitor/initiate medications and make changes as indicated.? The patient will be hospitalized for at least two midnights. The patient?s likely length of stay 2-4 days. Coding Level of Care Code Acute Code for Chg Fwd Diagnoses Acute psychosis F23 Depression, unspecified F32.A Suicidal ideation R45.851 PTSD (post-traumatic stress disorder) F43.10
[2025-04-20 19:56] VITALS: BP 104/62; PULSE 81; RESP 19; TEMP 36.4; O2SAT 94
[2025-04-21 06:00] VITALS: BP 91/61; PULSE 73; RESP 16; TEMP 36.6; O2SAT 96
[2025-04-21] MEDS: paliperidone ER 6 mg Tablet PO (08:10)
--- NOTE | 2025-04-21 08:43 | PC.NURSE ---
Pt states that she slept good last night. She rates her anxiety 6/10 and depression 0/10. No reports of SI/HI or hallucinations. She is calm and cooperative on assessment. Ready for her d/c today. No reports of pain
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
[2025-04-21 10:32] VITALS: BP 91/61; PULSE 73; RESP 16; TEMP 36.6; O2SAT 96
--- NOTE | 2025-04-21 13:34 | PC.NURSE ---
At 1200 reviewed patients discharge instructions and medications with patient. All questions answered
== END 2025-04-21 13:04 | disposition home or self-care (01) | DRG 885 ==
LOC: ER 21:35 → NP 22:06
PROVIDERS: Admitting Provider Psychiatry & Neurology Psychiatry; Emergency Provider Physician Assistant; Visit Provider Psychiatry & Neurology Psychiatry
DX: F23 Brief psychotic disorder (principal); R45.851 Suicidal ideations; Z59.01 Sheltered homelessness; F32.A Depression, unspecified; F43.10 Post-traumatic stress disorder, unspecified; G31.84 Mild cognitive impairment of uncertain or unknown etiology; E66.3 Overweight; F41.9 Anxiety disorder, unspecified; K21.9 Gastro-esophageal reflux disease without esophagitis; J45.909 Unspecified asthma, uncomplicated; Z81.8 Family history of other mental and behavioral disorders; Z62.810 Personal history of physical and sexual abuse in childhood
CPT/HCPCS: 36415; 80053; 80306; 80307; 81001; 81025; 84443; 85025; 93005; 97150; 97165; 99285; J9999